=== PATIENT | female | born 1930 | race Caucasian/White ===

== ENCOUNTER 2016-10-25 11:43 | Emergency (ER) | payer MEDICARE ==
[2016-10-25 12:32] VITALS: RESP 16
--- NOTE | 2016-10-25 13:12 | ED ---
Lower Extremity Injury HPI - General Chief Complaint: Extremity Injury, Lower Stated Complaint: GROWTH ON LEFT FOOT Time Seen by Provider: 10/25/16 13:04 Source: patient, family, RN notes reviewed Mode of arrival: ambulatory Limitations: no limitations - History of Present Illness Initial Comments: 86-year-old female presents to the emergency department with a chief complaint of sore to the left foot. Patient states that about a month ago she cut her foot on some glass. Patient states since then she's had just the sore to left foot that is tender to touch. Patient does not know if there is Peter glass in the foot. Patient states she's had no redness or erythema from the area. Patient denies any fever or chills. Patient states she was concerned due to the continued sore so she thought that she should be seen. Patient states she is up-to-date on her tetanus. Patient states that she is not currently having any other symptoms at this time. Patient denies any recent fever, chills, shortness of breath, chest pain, back pain, abdominal pain, nausea vomiting, numbness or tingling, dysuria or hematuria, constipation or diarrhea, headaches or visual changes, or any other current symptoms. - Related Data Home Medications Medication Instructions Recorded Confirmed ALPRAZolam [Xanax] 0.25 mg PO Q8H PRN 06/13/14 04/13/16 Donepezil HCl 10 mg PO HS 06/13/14 04/13/16 amLODIPine BESYLATE [Norvasc] 5 mg PO DAILY 06/13/14 04/13/16 Acetaminophen with Codeine 1 tab PO BID PRN 04/13/16 04/13/16 [Tylenol w/codeine #3] Diclofenac Sodium [Diclofenac 1 applic TOPICAL TID 04/13/16 04/13/16 Sodium] Hydrocodone/Acetaminophen [[place] 1 tab PO Q8H PRN 04/13/16 04/13/16 5-325] Previous Rx's Medication Instructions Recorded Cephalexin [Keflex] 500 mg PO Q6HR #40 cap 10/25/16 Allergies Allergy/AdvReac Type Severity Reaction Status Date / Time coconut oil Allergy Unknown Verified 10/25/16 12:30 Review of Systems ROS Statement: Those systems with pertinent positive or pertinent negative responses have been documented in the HPI. ROS Other: All systems not noted in ROS Statement are negative. Past Medical History Past Medical History: Dementia, Hypertension, Osteoarthritis (OA) Additional Past Medical History / Comment(s): pelvic fracture right side History of Any Multi-Drug Resistant Organisms: None Reported Past Surgical History: Appendectomy, Cholecystectomy, Joint Replacement Additional Past Surgical History / Comment(s): left knee surgery Past Psychological History: Anxiety Smoking Status: Never smoker Past Alcohol Use History: None Reported Past Drug Use History: None Reported General Exam Limitations: no limitations General appearance: alert, in no apparent distress Head exam: Present: atraumatic, normocephalic, normal inspection Eye exam: Present: normal appearance, PERRL, EOMI. Absent: scleral icterus, conjunctival injection, periorbital swelling Respiratory exam: Present: normal lung sounds bilaterally. Absent: respiratory distress, wheezes, rales, rhonchi, stridor Cardiovascular Exam: Present: regular rate, normal rhythm, normal heart sounds. Absent: systolic murmur, diastolic murmur, rubs, gallop, clicks Extremities exam: Present: full ROM, normal capillary refill. Absent: normal inspection (Patient does appear to have a round circular area to the left foot. There is appears to be some fluctuation to touch. No associated erythema.), tenderness, pedal edema, joint swelling, calf tenderness Neurological exam: Present: alert, oriented X3, CN II-XII intact. Absent: motor sensory deficit Psychiatric exam: Present: normal affect, normal mood Skin exam: Present: warm, dry, intact, normal color. Absent: rash Course Vital Signs 10/25/16 12:30 Temperature 98.7 F Pulse Rate 85 Respiratory 16 Rate Blood Pressure 177/80 Procedures - Procedures Initial comment: Procedure: Incision and drainage The skin overlying the abscess was prepped with Betadine, and anesthetized with 1% lidocaine without epinephrine. A #11 scalpel was then used to incise the abscess. Some purulent material was then extracted from the lesion.Gauze dressing placed on top, The patient tolerated the procedure well. Medical Decision Making - Medical Decision Making 86-year-old female presents to emergency room chief complaint of sore to the left foot. Patient's x-ray does show a radiopaque foreign body which appears to be within the abscess. The abscess was drained. The foreign body was removed. X-ray does show removal of the foreign body. At this time we did discuss that we will start her on Keflex. We discussed return parameters and follow-up. Patient's family stated they understood all questions were answered. They will be discharged home. - Radiology Data Radiology results: report reviewed, image reviewed Interpreted by me: Final left foot limited study does show removal of foreign body. Disposition Clinical Impression: Foreign body in left foot, Abscess of left foot Disposition: HOME SELF-CARE Condition: Stable Instructions: Abscess (ED), Soft Tissue Foreign Body (ED) Additional Instructions: Please use medication as discussed. Please follow up with family doctor if symptoms have not improved over the next two days. Please return to the emergency room if your symptoms increase or worsen or for any other concerns. Prescriptions: Cephalexin [Keflex] 500 mg PO Q6HR #40 cap Referrals: Enrike Bronson MD [Primary Care Provider] - 1-2 days Time of Disposition: 14:11
--- NOTE | 2016-10-25 13:31 | XR ---
EXAMINATION TYPE: XR foot complete LT DATE OF EXAM: 10/25/2016 1:25 PM COMPARISON: NONE HISTORY: Pain, foreign body glass TECHNIQUE: 3 view left foot FINDINGS: There is a radiopaque foreign body within the subcutaneous tissues at the heel. This correl ates with the area indicated by the paper clip. Plantar calcaneal heel spur is present. This is ident ified on the lateral projection. There is advanced degenerative joint changes of the first metatarsophalangeal joint space. Acute frac tures are not evident. IMPRESSION: 1. Radiopaque foreign body within the subcutaneous heel pad.
--- NOTE | 2016-10-25 14:02 | XR ---
EXAMINATION TYPE: XR foot limited LT DATE OF EXAM: 10/25/2016 1:47 PM COMPARISON: Three-view left foot same date HISTORY: Foreign body TECHNIQUE: Portable lateral left foot FINDINGS: Radiopaque foreign body remains present within the subcutaneous tissues of the heel pad. Pl javon calcaneal heel spur is present. IMPRESSION: 1. Retained foreign body.
[2016-10-25 14:20] VITALS: BP 138/87; PULSE 98; TEMP 97.9
--- NOTE | 2016-10-25 14:25 | XR ---
EXAMINATION TYPE: XR foot limited LT DATE OF EXAM: 10/25/2016 2:12 PM COMPARISON: NONE HISTORY: Post foreign body removal TECHNIQUE: Lateral left foot FINDINGS: Radiopaque foreign body is now absent. Plantar calcaneal spur remains present. IMPRESSION: 1. Removal of a radiopaque foreign body heel pad.
== END 2016-10-25 14:21 | disposition home or self-care (01) ==
LOC: EC 11:43
DX: M79.5 Residual foreign body in soft tissue (principal); L02.612 Cutaneous abscess of left foot; W25.XXXA Contact with sharp glass, initial encounter; W45.8XXA Other foreign body or object entering through skin, initial encounter; Z79.899 Other long term (current) drug therapy; I10 Essential (primary) hypertension; F03.90 Unspecified dementia, unspecified severity, without behavioral disturbance, psychotic disturbance, mood disturbance, and anxiety; Z91.018 Allergy to other foods; F41.9 Anxiety disorder, unspecified
CPT/HCPCS: 28190; 99283

== ENCOUNTER 2017-04-12 08:13 | Inpatient (IN) | payer MEDICARE ==
[2017-04-12] MEDS ORDERED: SODIUM CHLORIDE 0.9% 500 ML IV STA (08:44)
--- NOTE | 2017-04-12 08:48 | ED ---
General Adult HPI - General Chief complaint: Dizziness Stated complaint: SYNCOPE Time Seen by Provider: 04/12/17 08:20 Source: patient, RN notes reviewed Mode of arrival: wheelchair Limitations: no limitations - History of Present Illness Initial comments: This is an 87-year-old female who presents to the emergency department after having had a syncopal episode. Patient's family states yesterday she was sitting on the porch and passed out and was completely unresponsive for 2-3 minutes. They called EMS but by the time he arrived patient was alert and oriented 3. EMS did some vital signs patient was feeling fine her vitals were normal and it was determined they would just watch the patient stay with the patient overnight. This morning while having a little bit of coffee the patient again passed out was out for 2-3 minutes and then again called 911. Patient awoke and was alert and oriented 3 and was back to her baseline with normal vitals. Patient only complains of feeling fatigued she has no pain she has had no recent fever chills she has had no recent episodes of chest pain palpitations. Patient said no abdominal pain she denies any nausea vomiting or diarrhea recently. Patient denies any dysuria hematuria urinary frequency. - Related Data Home Medications Medication Instructions Recorded Confirmed ALPRAZolam [Xanax] 0.25 mg PO Q8H PRN 06/13/14 04/12/17 Donepezil HCl 10 mg PO HS 06/13/14 04/12/17 amLODIPine BESYLATE [Norvasc] 5 mg PO DAILY 06/13/14 04/12/17 Diclofenac Sodium [Diclofenac 1 applic TOPICAL TID 04/13/16 04/12/17 Sodium] Docusate [Colace] 100 mg PO HS 04/12/17 04/12/17 Ergocalciferol [Vitamin D2] 50,000 unit PO Q7D 04/12/17 04/12/17 Ferrous Sulfate [Iron] 325 mg PO TID 04/12/17 04/12/17 Sertraline HCl [Zoloft] 25 mg PO DAILY 04/12/17 04/12/17 Sulfamethox-Tmp 800-160Mg [Bactrim 0.5 tab PO Q12HR 04/12/17 04/12/17 DS 800-160 mg] Allergies Allergy/AdvReac Type Severity Reaction Status Date / Time coconut oil Allergy Unknown Verified 06/29/17 09:09 Review of Systems ROS Statement: Those systems with pertinent positive or pertinent negative responses have been documented in the HPI. ROS Other: All systems not noted in ROS Statement are negative. Past Medical History Past Medical History: Dementia, Hypertension, Osteoarthritis (OA) Additional Past Medical History / Comment(s): pelvic fracture right side History of Any Multi-Drug Resistant Organisms: None Reported Past Surgical History: Appendectomy, Cholecystectomy, Joint Replacement Additional Past Surgical History / Comment(s): left knee surgery Past Psychological History: Anxiety Smoking Status: Never smoker Past Alcohol Use History: None Reported Past Drug Use History: None Reported General Exam - General Exam Comments Initial Comments: GENERAL: Patient is well-developed and well-nourished. Patient is nontoxic and well- hydrated and is in mild distress. Patient does appear to be very fatigued and if you don't talk to her friend at the time she falls asleep ENT: Neck is soft and supple. No significant lymphadenopathy is noted. Oropharynx is clear. Moist mucous membranes. Neck has full range of motion without eliciting any pain. EYES: The sclera were anicteric and conjunctiva were pink and moist. Extraocular movements were intact and pupils were equal round and reactive to light. Eyelids were unremarkable. PULMONARY: Unlabored respirations. Good breath sounds bilaterally. No audible rales rhonchi or wheezing was noted. CARDIOVASCULAR: There is a regular rate and rhythm without any murmurs gallops or rubs. ABDOMEN: Soft and nontender with normal bowel sounds. No palpable organomegaly was noted. There is a palpable pulsatile mass in the left upper quadrant. SKIN: Skin is clear with no lesions or rashes and otherwise unremarkable. NEUROLOGIC: Patient is alert and oriented x3. Cranial nerves II through XII are grossly intact. Motor and sensory are also intact. Normal speech, volume and content. Symmetrical smile. MUSCULOSKELETAL: Normal extremities with adequate strength and full range of motion. LYMPHATICS: No significant lymphadenopathy is noted PSYCHIATRIC: Normal psychiatric evaluation. Normal interpersonal interactions appears functionally intact in deals appropriately with others. No signs of depression. No signs of anxiety. Limitations: no limitations Course Vital Signs 04/12/17 04/12/17 04/12/17 08:18 08:45 10:15 Temperature 98.2 F Pulse Rate 63 48 L Pulse Rate [ 63 Sitting] Pulse Rate [ 75 Standing] Pulse Rate [ 49 L Supine] Respiratory 18 15 Rate Blood Pressure 127/65 140/64 Blood Pressure 140/69 [Sitting] Blood Pressure 130/65 [Standing] Blood Pressure 120/60 [Supine] O2 Sat by Pulse 98 Oximetry 04/12/17 11:22 Temperature 98.4 F Pulse Rate 65 Pulse Rate [ Sitting] Pulse Rate [ Standing] Pulse Rate [ Supine] Respiratory 16 Rate Blood Pressure 108/56 Blood Pressure [Sitting] Blood Pressure [Standing] Blood Pressure [Supine] O2 Sat by Pulse Oximetry Medical Decision Making - Medical Decision Making EKG shows sinus bradycardia 55 bpm UT interval is 198 QRS is 94 Q-T intervals 414 QTC is 396. Patient's EKG shows no ST segment elevation or depression or T wave abnormalities are noted. Chest x-ray shows no acute abnormality. Patient continues to be extremely fatigued in the emergency department but no more syncopal episodes occurred. I spoke with Dr. Lubin he agreed to admit the patient admitted the patient I wrote admitting orders. - Lab Data Result diagrams: 04/12/17 08:45 04/12/17 08:45 Lab Results 04/12/17 04/12/17 04/12/17 Range/Units 08:45 08:45 08:45 WBC 6.4 (3.8-10.6) k/uL RBC 3.65 L (3.80-5.40) m/uL Hgb 8.8 L (11.4-16.0) gm/dL Hct 29.1 L (34.0-46.0) % MCV 79.7 L (80.0-100.0) fL MCH 24.0 L (25.0-35.0) pg MCHC 30.1 L (31.0-37.0) g/dL RDW 15.3 (11.5-15.5) % Plt Count 351 (150-450) k/uL Neutrophils % 64 % Lymphocytes % 21 % Monocytes % 7 % Eosinophils % 5 % Basophils % 1 % Neutrophils # 4.1 (1.3-7.7) k/uL Lymphocytes # 1.3 (1.0-4.8) k/uL Monocytes # 0.4 (0-1.0) k/uL Eosinophils # 0.3 (0-0.7) k/uL Basophils # 0.1 (0-0.2) k/uL Hypochromasia Marked PT (9.0-12.0) sec INR (<1.1) APTT (22.0-30.0) sec Sodium 140 (137-145) mmol/L Potassium 4.3 (3.5-5.1) mmol/L Chloride 106 (98-107) mmol/L Carbon Dioxide 24 (22-30) mmol/L Anion Gap 10 mmol/L BUN 17 (7-17) mg/dL Creatinine 1.28 H (0.52-1.04) mg/dL Est GFR (MDRD) Af Amer 48 (>60 ml/min/1.73 sqM) Est GFR (MDRD) Non-Af 40 (>60 ml/min/1.73 sqM) Glucose 110 H (74-99) mg/dL Calcium 9.1 (8.4-10.2) mg/dL Magnesium 2.3 (1.6-2.3) mg/dL Total Bilirubin 0.5 (0.2-1.3) mg/dL AST 20 (14-36) U/L ALT 23 (9-52) U/L Alkaline Phosphatase 72 (38-126) U/L Total Creatine Kinase 79 (30-135) U/L CK-MB (CK-2) 0.9 (0.0-2.4) ng/mL CK-MB (CK-2) Rel Index 1.1 Troponin I <0.012 (0.000-0.034) ng/mL Total Protein 6.3 (6.3-8.2) g/dL Albumin 3.7 (3.5-5.0) g/dL TSH 2.260 (0.465-4.680) mIU/L Free T4 1.18 (0.78-2.19) ng/dL Urine Color Urine Appearance (Clear) Urine pH (5.0-8.0) Ur Specific [place] (1.001-1.035) Urine Protein (Negative) Urine Glucose (UA) (Negative) Urine Ketones (Negative) Urine Blood (Negative) Urine Nitrite (Negative) Urine Bilirubin (Negative) Urine Urobilinogen (<2.0) mg/dL Ur Leukocyte Esterase (Negative) Urine WBC (0-5) /hpf Ur Squamous Epith Cells (0-4) /hpf Hyaline Casts (0-2) /lpf Urine Mucus (None) /hpf 06/29/17 06/29/17 Range/Units 08:45 10:30 WBC (3.8-10.6) k/uL RBC (3.80-5.40) m/uL Hgb (11.4-16.0) gm/dL Hct (34.0-46.0) % MCV (80.0-100.0) fL MCH (25.0-35.0) pg MCHC (31.0-37.0) g/dL RDW (11.5-15.5) % Plt Count (150-450) k/uL Neutrophils % % Lymphocytes % % Monocytes % % Eosinophils % % Basophils % % Neutrophils # (1.3-7.7) k/uL Lymphocytes # (1.0-4.8) k/uL Monocytes # (0-1.0) k/uL Eosinophils # (0-0.7) k/uL Basophils # (0-0.2) k/uL Hypochromasia PT 10.8 (9.0-12.0) sec INR 1.1 (<1.1) APTT 20.8 L (22.0-30.0) sec Sodium (137-145) mmol/L Potassium (3.5-5.1) mmol/L Chloride (98-107) mmol/L Carbon Dioxide (22-30) mmol/L Anion Gap mmol/L BUN (7-17) mg/dL Creatinine (0.52-1.04) mg/dL Est GFR (MDRD) Af Amer (>60 ml/min/1.73 sqM) Est GFR (MDRD) Non-Af (>60 ml/min/1.73 sqM) Glucose (74-99) mg/dL Calcium (8.4-10.2) mg/dL Magnesium (1.6-2.3) mg/dL Total Bilirubin (0.2-1.3) mg/dL AST (14-36) U/L ALT (9-52) U/L Alkaline Phosphatase (38-126) U/L Total Creatine Kinase (30-135) U/L CK-MB (CK-2) (0.0-2.4) ng/mL CK-MB (CK-2) Rel Index Troponin I (0.000-0.034) ng/mL Total Protein (6.3-8.2) g/dL Albumin (3.5-5.0) g/dL TSH (0.465-4.680) mIU/L Free T4 (0.78-2.19) ng/dL Urine Color Yellow Urine Appearance Clear (Clear) Urine pH 6.5 (5.0-8.0) Ur Specific [place] 1.018 (1.001-1.035) Urine Protein 1+ H (Negative) Urine Glucose (UA) Negative (Negative) Urine Ketones Negative (Negative) Urine Blood Negative (Negative) Urine Nitrite Negative (Negative) Urine Bilirubin Negative (Negative) Urine Urobilinogen <2.0 (<2.0) mg/dL Ur Leukocyte Esterase Trace H (Negative) Urine WBC 2 (0-5) /hpf Ur Squamous Epith Cells 2 (0-4) /hpf Hyaline Casts 13 H (0-2) /lpf Urine Mucus Occasional H (None) /hpf Disposition Clinical Impression: Syncope, Anemia, Bradycardia Disposition: ADMITTED IP TO THIS HOSP Referrals: Jamel Wolfe MD [Primary Care Provider] - 1-2 days Time of Disposition: 11:38
[2017-04-12 09:08] LABS: Basophils # (A) 0.1 k/uL (0-0.2); Basophils % (A) 1 %; CHCM 30.3; Eosinophils # (A) 0.3 k/uL (0-0.7); Eosinophils % (A) 5 %; HCT 29.1 % (34.0-46.0); HDW 3.04; HGB 8.8 gm/dL (11.4-16.0); Hypochromasia Marked; Luc # (Auto) 0.15; Luc % (Auto) 2; Lymphocytes # (A) 1.3 k/uL (1.0-4.8); Lymphocytes % (A) 21 %; MCHC 30.1 g/dL (31.0-37.0); MCV 79.7 fL (80.0-100.0); Mean Platelet Volume 7.5; Monocytes # (A) 0.4 k/uL (0-1.0); Monocytes % (A) 7 %; Neutrophils # (A) 4.1 k/uL (1.3-7.7); Neutrophils % (A) 64 %; RBC 3.65 m/uL (3.80-5.40); RDW 15.3 % (11.5-15.5); WBC 6.4 k/uL (3.8-10.6); WBC (Perox) 6.48
[2017-04-12 09:22] LABS: Calcium 9.1 mg/dL (8.4-10.2); Magnesium 2.3 mg/dL (1.6-2.3); Potassium 4.3 mmol/L (3.5-5.1); Total Bilirubin 0.5 mg/dL (0.2-1.3); Total Protein 6.3 g/dL (6.3-8.2)
[2017-04-12 09:35] LABS: INR 1.1 (<1.1); Partial Thromboplastin Time 20.8 sec (22.0-30.0); Prothrombin Time 10.8 sec (9.0-12.0)
[2017-04-12 09:37] LABS: Creatine Kinase 79 U/L (30-135)
[2017-04-12 09:50] LABS: Creatine Kinase MB 0.9 ng/mL (0.0-2.4); Troponin I <0.012 ng/mL (0.000-0.034)
--- NOTE | 2017-04-12 10:00 | XR ---
EXAMINATION TYPE: XR chest 2V DATE OF EXAM: 04/12/2017 COMPARISON: 12/03/2014 HISTORY: 87-year-old female with weakness TECHNIQUE: AP and lateral views FINDINGS: There is excessive rightward patient rotation altering the normal cardiomediastinal contours. AP posi tioning may be magnifying the mediastinum and heart. Mild diffuse interstitial prominence is unchange d. No consolidation, pneumothorax, or pleural effusion seen. IMPRESSION: 1. Suboptimal rotated exam. The rotation and AP projection may be overly magnifying the mediastinum a nd heart. Recommend repeat with PA view. 2. Mild interstitial prominence appears chronic. No infiltrate or effusion seen.
--- NOTE | 2017-04-12 11:01 | CT ---
EXAMINATION TYPE: CT abdomen pelvis wo con DATE OF EXAM: 04/12/2017 COMPARISON: NONE HISTORY: 87-year-old female Nausea and syncope CT DLP: 725 mGycm. Automated exposure control for dose reduction was used. TECHNIQUE: Contiguous axial scanning of the abdomen and pelvis without IV contrast. Coronal and sagit angela reconstructions performed. FINDINGS: The heart is upper limits of normal in size without pericardial effusion. Coronary vessel calcificati ons are present entering marker for coronary artery disease. Tortuous thoracic aorta. Strandy atelect asis or scarring at the inferior lingula and posterior left base. No pleural effusion. A few scattered punctate calcifications in the liver likely calcified granulomas. Additional subcenti meter hypodensities within the left hepatic lobe. These are too small for adequate CT characterizatio n probably represent cysts. Noncontrast appearance of the gallbladder, adrenal gland, right kidney, spleen within normal limits. There is a vague 1.3 cm hypodense lesion at the pancreatic body and relative atrophy of the pancreati c tail. Mild circumferential wall thickening at the gastric antrum probably due to underdistention on axial i mage 22. Parapelvic cysts within the left kidney with a 4.2 cm cyst in the upper pole left kidney. Moderate atherosclerotic calcifications within the abdominal aorta and iliac arteries with 2 contiguo us fusiform aneurysms of the infrarenal abdominal aorta, measuring 3.1 cm and 3.2 cm, respectively. 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 No dilated small bowel, free fluid, or free air. Scattered colonic diverticulosis with mild stool burden. No pericolonic inflammatory change No mesenteric or retroperitoneal lymphadenopathy seen. There is moderate circumferential bladder wall thickening, greater than expected to the degree of nondistention. Uterus surgically absent. Prominen t 8 mm left external iliac chain lymph node is probably reactive/post inflammatory. There is a 1.4 cm cystic lesion in the right adnexa likely of ovarian etiology. 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 There is vertebral compression collapse of T12 with retropulsion i nto the spinal canal contributing to the severe spinal canal stenosis. Old healed fracture of the rig ht inferior pubic ramus. IMPRESSION: 1. Vague 1.3 cm hypodensity along the pancreatic body with relative atrophy of the pancreatic tail. Recommend pancreas MRI to exclude a pancreatic lesion such as adenocarcinoma. 2. Circumferential wall thickening at the gastric antrum could relate to underdistention, gastritis, or neoplasm. Direct visualization as indicated. 3. Bilobed fusiform aneurysms infrarenal abdominal aorta measuring 3.1 and 3.2 cm. Additional aneury sms of the right common (1.9 cm) and internal iliac (1.7 cm) arteries and left internal iliac artery (1.4 cm). 4. Moderate circumferential bladder wall thickening. Correlate for cystitis. Also, recommend correla tion with urine cytology to exclude the possibility of a urothelial neoplasm. 5. T12 vertebral compression collapsed with retropulsion causing severe spinal canal stenosis. The c ompression fracture appears chronic. Severe hypertrophic facet arthropathy causes a grade 2 L4-L5 ant erolisthesis 6. Colonic diverticulosis without acute diverticulitis.
[2017-04-12 11:04] LABS: Appearance,Urine Clear (Clear); Bilirubin,Urine Negative (Negative); Glucose,Urine (UA) Negative (Negative); Ketones,Urine Negative (Negative); Leukocyte Esterase,Urine Trace (Negative); Mucus,Urine Occasional /hpf; Nitrite,Urine Negative (Negative); PH, Urine 6.5 (5.0-8.0); Particle Count 4439; Protein,Urine 1+ (Negative); Specific Gravity,Urine 1.018 (1.001-1.035); Squamous Epithelial Cell,Urine 2 /hpf (0-4); UA Billing (MACRO vs. MICRO) MICRO; Urobilinogen,Urine <2.0 mg/dL (<2.0); WBC,Urine 2 /hpf (0-5)
[2017-04-12] MEDS ORDERED: NITROGLYCERIN SL TABS 0.4 MG TAB SUBLINGUAL PRN (11:39)
--- NOTE | 2017-04-12 15:34 | P.CRDCN ---
History of Present Illness Consult date: 04/12/17 Requesting physician: Jason Lubin Consult reason: sycope Chief complaint: Syncope History of present illness: This is an 87-year-old female who presented to the emergency room after having a syncopal episode. According to the ER notes the family stated that she was sitting on the porch and passed out, she apparently was unresponsive for 2-3 minutes. By EMS arrival patient was alert and oriented 3. This morning again while the patient was having coffee she apparently passed out for another 2 or 3 minutes in duration. Unable to obtain history from the patient as she has dementia. EKG showed a sinus bradycardia with left axis deviation. The pressure on arrival 127/60 there was no orthostatics documented, at times it's noted that the patient's heart rate does dip down into the 40s. Hemoglobin 8.8, potassium 4.3, BUN 17, creatinine 1.2. TSH 2.2, free T4 1 0.1. Chest x-ray revealed mild interstitial prominence. Past Medical History Past Medical History: CVA/TIA, Dementia, Eye Disorder, Hypertension, Osteoarthritis (OA), Vascular Disorder Additional Past Medical History / Comment(s): pelvic fracture right side, arthritis bilateral hands and feet, AAA-small, glaucoma R eye, TIA in 2009, diverticular dx/benign polyps History of Any Multi-Drug Resistant Organisms: None Reported Past Surgical History: Appendectomy, Cholecystectomy, Joint Replacement, Tonsillectomy Additional Past Surgical History / Comment(s): left total knee surgery, colonoscopy/polypectomy, bilateral cataract removal, surgery for glaucoma. Past Anesthesia/Blood Transfusion Reactions: No Reported Reaction, Motion Sickness Smoking Status: Never smoker - Past Family History Father Family Medical History: CVA/TIA Additional Family Medical History / Comment(s): Father of a CVA at the age of 65yrs. Mother Family Medical History: Dementia, Eye Disorder Additional Family Medical History / Comment(s): Mother at the age of 96yrs. She was healthy until age 90 when she went blind and had dementia. Medications and Allergies Home Medications Medication Instructions Recorded Confirmed Type ALPRAZolam [Xanax] 0.25 mg PO Q8H PRN 06/13/14 04/12/17 History Donepezil HCl 10 mg PO HS 06/13/14 04/12/17 History amLODIPine BESYLATE [Norvasc] 5 mg PO DAILY 06/13/14 04/12/17 History Diclofenac Sodium [Diclofenac 1 applic TOPICAL TID 04/13/16 04/12/17 History Sodium] Docusate [Colace] 100 mg PO HS 04/12/17 04/12/17 History Ergocalciferol [Vitamin D2] 50,000 unit PO Q7D 04/12/17 04/12/17 History Ferrous Sulfate [Iron] 325 mg PO TID 04/12/17 04/12/17 History Sertraline HCl [Zoloft] 25 mg PO DAILY 04/12/17 04/12/17 History Sulfamethox-Tmp 800-160Mg [Bactrim 0.5 tab PO Q12HR 04/12/17 04/12/17 History DS 800-160 mg] Allergies Allergy/AdvReac Type Severity Reaction Status Date / Time coconut oil Allergy Unknown Verified 04/12/17 09:09 Physical Exam Vitals: Vital Signs Temp Pulse Pulse Pulse Pulse Resp BP 04/12/17 12:24 98.8 F 67 84 46 L 16 04/12/17 11:22 98.4 F 65 16 108/56 04/12/17 10:15 48 L 15 140/64 04/12/17 08:45 63 75 49 L 04/12/17 08:18 98.2 F 63 18 127/65 BP BP BP Pulse Ox 04/12/17 12:24 128/72 111/62 118/53 04/12/17 11:22 04/12/17 10:15 04/12/17 08:45 140/69 130/65 120/60 04/12/17 08:18 98 Intake and Output 04/12/17 04/12/17 04/12/17 06:59 14:59 22:59 Other: Weight 65.771 kg Patient Weight 04/13/17 06:59 Weight 65.771 kg PHYSICAL EXAMINATION: HEENT: Head is atraumatic, normocephalic. Pupils equal, round. Neck is supple. There is no elevated jugular venous pressure. HEART EXAMINATION: Heart S1, S2 normal. No murmur or gallop heard. CHEST EXAMINATION: Lungs are clear to auscultation and precussion. No chest wall tenderness is noted on palpation or with deep breathing. ABDOMEN: Soft, nontender. Bowel sounds are heard. No organomegaly noted. EXTREMITIES:[ 2+ peripheral pulses with no evidence of peripheral edema and no calf tenderness noted]. NEUROLOGIC [patient is awake, . Results 04/12/17 08:45 04/12/17 08:45 Cardiac Enzymes 04/12/17 04/12/17 Range/Units 08:45 08:45 AST 20 (14-36) U/L CK-MB (CK-2) 0.9 (0.0-2.4) ng/mL Troponin I <0.012 (0.000-0.034) ng/mL Coagulation 04/12/17 Range/Units 08:45 PT 10.8 (9.0-12.0) sec APTT 20.8 L (22.0-30.0) sec CBC 04/12/17 Range/Units 08:45 WBC 6.4 (3.8-10.6) k/uL RBC 3.65 L (3.80-5.40) m/uL Hgb 8.8 L (11.4-16.0) gm/dL Hct 29.1 L (34.0-46.0) % Plt Count 351 (150-450) k/uL Comprehensive Metabolic Panel 04/12/17 Range/Units 08:45 Sodium 140 (137-145) mmol/L Potassium 4.3 (3.5-5.1) mmol/L Chloride 106 (98-107) mmol/L Carbon Dioxide 24 (22-30) mmol/L BUN 17 (7-17) mg/dL Creatinine 1.28 H (0.52-1.04) mg/dL Glucose 110 H (74-99) mg/dL Calcium 9.1 (8.4-10.2) mg/dL AST 20 (14-36) U/L ALT 23 (9-52) U/L Alkaline Phosphatase 72 (38-126) U/L Total Protein 6.3 (6.3-8.2) g/dL Albumin 3.7 (3.5-5.0) g/dL Current Medications Generic Name Dose Route Start Last Admin Trade Name Freq PRN Reason Stop Dose Admin Aspirin 325 mg 04/13/17 09:00 Aspirin PO DAILY JANNETTE Nitroglycerin 0.4 mg 04/12/17 11:39 Nitrostat SUBLINGUAL Q5M PRN Chest Pain Intake and Output 04/12/17 04/12/17 04/12/17 06:59 14:59 22:59 Other: Weight 65.771 kg Patient Weight 04/13/17 06:59 Weight 65.771 kg 04/12/17 08:45 04/12/17 08:45 EKG Interpretations (text) EKG shows a sinus bradycardia with left axis deviation Assessment and Plan Plan: Assessment and plan #1 syncope, rule out sick sinus syndrome. We will continue to monitor here. No orthostatics have been documented. Consider 30 day event monitor on discharge. #2 dementia #3 hypertension #4 prior TIA Plan We will obtain an echocardiogram with Doppler study. Continue to monitor for any significant bradycardia arrhythmias or sick sinus syndrome. If nothing is noted while here hospital, we would recommend a 30 day event monitor on discharge. DNP note has been reviewed, I agree with a documented findings and plan of care. Patient was seen and examined.
[2017-04-12] MEDS ORDERED: ONDANSETRON 4 MG/2 ML VIAL IVP PRN (15:47)
[2017-04-12 16:21] LABS: Creatine Kinase 74 U/L (30-135)
[2017-04-12 16:30] LABS: Creatine Kinase MB 0.8 ng/mL (0.0-2.4); Troponin I <0.012 ng/mL (0.000-0.034)
[2017-04-12] MEDS ORDERED: ERGOCALCIFEROL 50,000 UNIT CAP PO SCH (20:00)
[2017-04-12] MEDS: FERROUS SULFATE 325 MG TAB PO SCH (20:07)
[2017-04-12] MEDS: DOCUSATE 100 MG CAP PO SCH (20:08)
[2017-04-12 21:10] LABS: Creatine Kinase 86 U/L (30-135)
[2017-04-12 21:24] LABS: Creatine Kinase MB 0.9 ng/mL (0.0-2.4); Troponin I <0.012 ng/mL (0.000-0.034)
[2017-04-12] MEDS: ALPRAZolam 0.25 MG TAB PO PRN (22:15)
[2017-04-13 06:38] LABS: Basophils % (A) 1 %; CH 23.5; CHCM 29.3; Eosinophils # (A) 0.4 k/uL (0-0.7); Eosinophils % (A) 6 %; HDW 2.93; HGB 8.2 gm/dL (11.4-16.0); Hypochromasia Marked; Luc # (Auto) 0.18; Luc % (Auto) 3; Lymphocytes # (A) 1.5 k/uL (1.0-4.8); Lymphocytes % (A) 22 %; MCH 24.4 pg (25.0-35.0); MCHC 30.3 g/dL (31.0-37.0); MCV 80.6 fL (80.0-100.0); Mean Platelet Volume 7.5; Monocytes # (A) 0.5 k/uL (0-1.0); Monocytes % (A) 7 %; Neutrophils # (A) 4.2 k/uL (1.3-7.7); Neutrophils % (A) 62 %; RBC 3.35 m/uL (3.80-5.40); RDW 15.3 % (11.5-15.5); WBC 6.8 k/uL (3.8-10.6)
[2017-04-13 06:59] LABS: Calcium 8.8 mg/dL (8.4-10.2); Potassium 4.6 mmol/L (3.5-5.1)
[2017-04-13] MEDS: FAMOTIDINE 20 MG TAB PO SCH ×2 (07:49→19:38)
[2017-04-13] MEDS: SERTRALINE 25 MG TAB PO SCH (07:49)
[2017-04-13] MEDS: HEPARIN SODIUM,PORCINE 5,000 UNIT/ML 1 ML VIAL SQ SCH ×2 (07:49→19:38)
[2017-04-13] MEDS: ASPIRIN 325 MG TAB PO SCH (07:49)
[2017-04-13] MEDS: FERROUS SULFATE 325 MG TAB PO SCH ×3 (07:50→19:38)
--- NOTE | 2017-04-13 11:07 | ECHOF ---
Referral Reason:syncope MEASUREMENTS -------- HEIGHT: 162.6 cm WEIGHT: 65.3 kg BP: 124/69 IVSd: 1.3 cm (0.6 - 1.1) LVIDd: 4.0 cm (3.9 - 5.3) LVPWd: 1.3 cm (0.6 - 1.1) IVSs: 1.5 cm LVIDs: 3.4 cm LVPWs: 1.1 cm LA Diam: 3.4 cm (2.7 - 3.8) LAESV Index (A-L): 41.27 ml/m Ao Diam: 3.2 cm (2.0 - 3.7) AV Cusp: 1.5 cm (1.5 - 2.6) LA Diam: 4.4 cm (2.7 - 3.8) MV EXCURSION: 19.436 mm (> 18.000) MV EF SLOPE: 56 mm/s (70 - 150) EPSS: 1.0 cm MV E Micheal: 0.49 m/s MV DecT: 298 ms MV A Micheal: 0.83 m/s MV E/A Ratio: 0.59 AR PHT: 788 ms RAP: 5.00 mmHg RVSP: 23.58 mmHg FINDINGS -------- Sinus rhythm. This was a technically adequate study. There is mild concentric left ventricular hypertrophy. Overall left ventricular systolic function is low-normal with, an EF between 50 - 55 %. The right ventricle is normal in size. LA is severely dilated >40 ml/m2 The right atrial size is normal. There is mild aortic valve sclerosis. There is mild aortic regurgitation. Mild mitral annular calcification present. Mild mitral regurgitation is present. Mild tricuspid regurgitation present. There is no evidence of pulmonary hypertension. The right ventricular systolic pressure, as measured by Doppler, is 23.58mmHg. Trace/mild (physiologic) pulmonic regurgitation. The aortic root size is normal. There is no pericardial effusion. CONCLUSIONS -------- 1. There is mild concentric left ventricular hypertrophy. 2. The right ventricular systolic pressure, as measured by Doppler, is 23.58mmHg. 3. Trace/mild (physiologic) pulmonic regurgitation. 4. The aortic root size is normal. 5. There is no pericardial effusion. 6. Overall left ventricular systolic function is low-normal with, an EF between 50 - 55 %. 7. LA is severely dilated >40 ml/m2 8. There is mild aortic valve sclerosis. 9. There is mild aortic regurgitation. 10. Mild mitral annular calcification present. 11. Mild mitral regurgitation is present. 12. Mild tricuspid regurgitation present. 13. There is no evidence of pulmonary hypertension. ORACLE SOA ARCHITECT: Deysi Farrell RDCS
[2017-04-13 11:48] VITALS: BMI 24.7
[2017-04-13] MEDS: ALPRAZolam 0.25 MG TAB PO PRN ×2 (15:16→23:36)
--- NOTE | 2017-04-13 16:59 | P.PN ---
Subjective This is an 7-year-old female who presented to the emergency department after having a syncopal episode. He apparently was unresponsive for 2-3 minutes. The time EMS arrived patient was alert and oriented 3. Patient has a known history of dementia, hypertension and prior TIA. Upon examination today, patient is sitting up in a chair. She has had no episodes of bradycardia or pauses on the monitor. She underwent echocardiogram with Doppler that showed an ejection fraction of 50-55% with mild aortic sclerosis and mild AR, mild MR and mild TR. Objective - Vital Signs Vital signs: Vital Signs Temp 98.1 F 04/13/17 12:00 Pulse 52 L 04/13/17 12:00 Resp 18 04/13/17 12:00 BP 116/57 04/13/17 12:00 Pulse Ox 98 04/13/17 08:00 Intake & Output 04/12/17 04/13/17 04/13/17 18:59 06:59 18:59 Intake Total 240 20 525 Output Total 300 Balance 240 20 225 Weight 65.771 kg 65.5 kg 65.5 kg Intake: IV 20 0.9 20 Oral 240 525 Output: Urine 300 Other: Voiding Method Toilet Toilet # Voids 1 1 2 - Exam PHYSICAL EXAMINATION: HEENT: Head is atraumatic, normocephalic. Pupils equal, round. Neck is supple. There is no elevated jugular venous pressure. HEART EXAMINATION: Heart sounds regular, S1 and S2 normal with a systolic murmur. CHEST EXAMINATION: Lungs are clear to auscultation and precussion. No chest wall tenderness is noted on palpation or with deep breathing. ABDOMEN: Soft, nontender. Bowel sounds are heard. No organomegaly noted. EXTREMITIES: 2+ peripheral pulses with no evidence of peripheral edema and no calf tenderness noted. NEUROLOGIC patient is awake, alert and oriented x2. . - Labs CBC & Chem 7: 04/13/17 05:34 04/13/17 05:34 Labs: Abnormal Lab Results - Last 24 Hours (Table) 04/13/17 04/13/17 Range/Units 05:34 05:34 RBC 3.35 L (3.80-5.40) m/uL Hgb 8.2 L (11.4-16.0) gm/dL Hct 27.0 L (34.0-46.0) % MCH 24.4 L (25.0-35.0) pg MCHC 30.3 L (31.0-37.0) g/dL Chloride 109 H (98-107) mmol/L BUN 25 H (7-17) mg/dL Creatinine 1.26 H (0.52-1.04) mg/dL HDL Cholesterol 72 H (40-60) mg/dL Assessment and Plan Plan: Assessment and plan #1 syncope, rule out sick sinus syndrome, patient has had no bradycardia or pauses. #2 dementia #3 hypertension #4 prior TIA From cardiology perspective, we anticipate the patient will be discharged home in the next 24 hours. We have arranged for a 30 day event monitor to be mailed to her son's house where she will be going upon discharge. She'll follow-up with Dr. VC Pastor in the office. INSURANCE AGENTS SUPERVISOR note has been reviewed, I agree with a documented findings and plan of care. Patient was seen and examined.
[2017-04-13] MEDS: DOCUSATE 100 MG CAP PO SCH (19:38)
[2017-04-14 06:40] LABS: Basophils # (A) 0.1 k/uL (0-0.2); Basophils % (A) 1 %; CH 23.6; CHCM 29.5; Eosinophils # (A) 0.5 k/uL (0-0.7); Eosinophils % (A) 8 %; HCT 25.8 % (34.0-46.0); HDW 2.97; HGB 7.7 gm/dL (11.4-16.0); Hypochromasia Marked; Luc # (Auto) 0.24; Luc % (Auto) 4; Lymphocytes # (A) 1.5 k/uL (1.0-4.8); Lymphocytes % (A) 26 %; MCH 24.1 pg (25.0-35.0); MCV 80.3 fL (80.0-100.0); Mean Platelet Volume 6.5; Monocytes # (A) 0.4 k/uL (0-1.0); Monocytes % (A) 7 %; Neutrophils # (A) 3.1 k/uL (1.3-7.7); Neutrophils % (A) 54 %; RBC 3.22 m/uL (3.80-5.40); RDW 15.5 % (11.5-15.5); WBC 5.7 k/uL (3.8-10.6); WBC (Perox) 6.26
[2017-04-14 06:52] LABS: Calcium 8.9 mg/dL (8.4-10.2); Potassium 4.4 mmol/L (3.5-5.1)
[2017-04-14] MEDS: FERROUS SULFATE 325 MG TAB PO SCH (08:23)
[2017-04-14] MEDS: FAMOTIDINE 20 MG TAB PO SCH (08:23)
[2017-04-14] MEDS: HEPARIN SODIUM,PORCINE 5,000 UNIT/ML 1 ML VIAL SQ SCH (08:23)
[2017-04-14] MEDS: SERTRALINE 25 MG TAB PO SCH (08:23)
[2017-04-14] MEDS: ASPIRIN 325 MG TAB PO SCH (08:23)
[2017-04-14 08:33] VITALS: RESP 18
[2017-04-14 12:09] VITALS: BP 110/58; PULSE 68; TEMP 97.8
--- NOTE | 2017-04-14 12:50 | P.PN ---
Subjective Ms. Amezquita is an 87-year-old female with the PMH of CVA/TIA, Dementia, Eye Disorder, Hypertension, Osteoarthritis (OA) who presented to the emergency room after having a syncopal episode. According to the ER notes the family stated that she was sitting on the porch and passed out, she apparently was unresponsive for 2-3 minutes. By EMS arrival patient was alert and oriented 3. This morning again while the patient was having coffee she apparently passed out for another 2 or 3 minutes in duration. Unable to obtain history from the patient as she has dementia. EKG showed a sinus bradycardia with left axis deviation. The pressure on arrival 127/60 there was no orthostatics documented, at times it's noted that the patient's heart rate does dip down into the 40s. Hemoglobin 8.8, potassium 4.3, BUN 17, creatinine 1.2. TSH 2.2, free T4 1 0.1. Chest x-ray revealed mild interstitial prominence. On 04/13/17 - pt is sitting on her bed and states that she did not have any syncopal episodes. She denies having any chest pain, SOB, palpitations, Orthopnea or PND. ROS - CONSTITUTIONAL: No fever. No chills. RESPIRATORY: Patient denies any cough or sputum production or short of breath. CARDIOVASCULAR: No chest pain, palpitations or leg swelling. GENITOURINARY: Negative. GI - negative. Objective - Vital Signs Vital signs: Vital Signs Temp 98.3 F 04/13/17 16:00 Pulse 52 L 04/13/17 16:00 Resp 18 04/13/17 16:00 BP 122/66 04/13/17 16:00 Pulse Ox 95 04/13/17 16:00 Intake & Output 04/13/17 04/13/17 04/14/17 06:59 18:59 06:59 Intake Total 20 525 Output Total 300 Balance 20 225 Weight 65.5 kg 65.5 kg Intake: IV 20 0.9 20 Oral 525 Output: Urine 300 Other: Voiding Method Toilet Toilet # Voids 1 2 - Exam HEENT: Head is atraumatic, normocephalic. Pupils equal, round. Neck is supple. There is no elevated jugular venous pressure. HEART EXAMINATION: Heart sounds regular, S1 and S2 normal with a systolic murmur. CHEST EXAMINATION: Lungs are clear to auscultation and precussion. No chest wall tenderness is noted on palpation or with deep breathing. ABDOMEN: Soft, nontender. Bowel sounds are heard. No organomegaly noted. EXTREMITIES: 2+ peripheral pulses with no evidence of peripheral edema and no calf tenderness noted. NEUROLOGIC patient is awake, alert and oriented x2. - Constitutional General appearance: Present: obese - EENT Eyes: Present: PERRLA - Labs CBC & Chem 7: 04/13/17 05:34 04/13/17 05:34 Labs: Abnormal Lab Results - Last 24 Hours (Table) 04/13/17 04/13/17 Range/Units 05:34 05:34 RBC 3.35 L (3.80-5.40) m/uL Hgb 8.2 L (11.4-16.0) gm/dL Hct 27.0 L (34.0-46.0) % MCH 24.4 L (25.0-35.0) pg MCHC 30.3 L (31.0-37.0) g/dL Chloride 109 H (98-107) mmol/L BUN 25 H (7-17) mg/dL Creatinine 1.26 H (0.52-1.04) mg/dL HDL Cholesterol 72 H (40-60) mg/dL Assessment and Plan Plan: ASSESSMENT 1 Syncope - due to bradycardia or pauses - can due to Aricept (known to cause Bradycardia) 2. Dementia 3. 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 CKD - Stage 3 - can be due to HTN nephrosclerosis 5. Hypertension 6. Prior TIA PLAN - Aricept has been discontinued. Pt's HR is in 60 now. Cardiology on board and rec to have an event monitor,Anticipate d/c in the next 24 hrs if uneventful.
--- NOTE | 2017-04-14 12:58 | US ---
EXAMINATION TYPE: US carotid duplex BILAT DATE OF EXAM: 04/14/2017 COMPARISON: NONE CLINICAL HISTORY: jacques; syncope. EXAM MEASUREMENTS: RIGHT: Peak Systolic Velocity (PSV) cm/sec ----- Right CCA: 76.7 ----- Right ICA: 77.6 ----- Right ECA: 67.1 ICA/CCA ratio: 1.0 RIGHT: End Diastole cm/sec ----- Right CCA: 17.4 ----- Right ICA: 20.9 ----- Right ECA: 0.0 LEFT: Peak Systolic Velocity (PSV) cm/sec ----- Left CCA: 75.7 ----- Left ICA: 69.7 ----- Left ECA: 65.8 ICA/CCA ratio: 0.9 LEFT: End Diastole cm/sec ----- Left CCA: 8.7 ----- Left ICA: 15.3 ----- Left ECA: 0.0 VERTEBRALS (direction of flow): Right Vertebral: Antegrade Left Vertebral: Antegrade No significant stenosis seen, mild bilateral plaque noted. Scattered small plaques are evident. There is some intimal thickening within the common carotid arter y on the left. IMPRESSION: Mild atheromatous plaquing and intimal thickening without significant flow-limiting sten osis. Criteria for Assigning % of Stenosis / Diameter reduction (Estimation based on the indirect measurements of the internal carotid artery velocities (ICA PSV). 1. Normal (no stenosis)=ICA PSV < 125 cm/s: ratio < 2.0: ICA EDV<40 cm/s. 2. Less than 50% stenosis=ICA PSV < 125 cm/s: ratio < 2.0: ICA EDV<40 cm/s. 3. 50 to 69% stenosis=ICA PSV of 125 to 230 cm/s: ration 2.0 ? 4.0: ICA EDV 40-100 cm/s. 4. Greater than 70% stenosis to near occlusion= ICA PSV > 230 cm/s: ratio > 4.0: ICA EDV > 100 cm/s. 5. Near occlusion= ICA PSV velocities may be low or undetectable: variable ratio and ICA EDV. 6. Total occlusion=unable to detect flow.
--- NOTE | 2017-04-14 14:29 | P.PN ---
Subjective This is an 7-year-old female who presented to the emergency department after having a syncopal episode. He apparently was unresponsive for 2-3 minutes. The time EMS arrived patient was alert and oriented 3. Patient has a known history of dementia, hypertension and prior TIA. Upon examination today, patient is sitting up in a chair. She has had no episodes of bradycardia or pauses on the monitor. She underwent echocardiogram with Doppler that showed an ejection fraction of 50-55% with mild aortic sclerosis and mild AR, mild MR and mild TR. She is been ordered to undergo carotid duplex prior to discharge. Objective - Vital Signs Vital signs: Vital Signs Temp 97.8 F 04/14/17 12:08 Pulse 68 04/14/17 12:08 Resp 18 04/14/17 12:08 BP 110/58 04/14/17 12:08 Pulse Ox 95 04/14/17 12:08 Intake & Output 04/13/17 04/14/17 04/14/17 18:59 06:59 18:59 Intake Total 525 20 Output Total 300 Balance 225 20 Weight 65.5 kg 65.9 kg Intake: IV 20 0.9 20 Oral 525 Output: Urine 300 Other: Voiding Method Toilet Toilet Toilet # Voids 2 - Exam PHYSICAL EXAMINATION: HEENT: Head is atraumatic, normocephalic. Pupils equal, round. Neck is supple. There is no elevated jugular venous pressure. HEART EXAMINATION: Heart sounds regular, S1 and S2 normal with a systolic murmur. CHEST EXAMINATION: Lungs are clear to auscultation and precussion. No chest wall tenderness is noted on palpation or with deep breathing. ABDOMEN: Soft, nontender. Bowel sounds are heard. No organomegaly noted. EXTREMITIES: 2+ peripheral pulses with no evidence of peripheral edema and no calf tenderness noted. NEUROLOGIC patient is awake, alert and oriented x3. . - Labs CBC & Chem 7: 04/14/17 06:10 04/14/17 06:10 Labs: Abnormal Lab Results - Last 24 Hours (Table) 04/14/17 04/14/17 Range/Units 06:10 06:10 RBC 3.22 L (3.80-5.40) m/uL Hgb 7.7 L (11.4-16.0) gm/dL Hct 25.8 L (34.0-46.0) % MCH 24.1 L (25.0-35.0) pg MCHC 30.0 L (31.0-37.0) g/dL BUN 25 H (7-17) mg/dL Creatinine 1.13 H (0.52-1.04) mg/dL Assessment and Plan Plan: Assessment and plan #1 syncope, rule out sick sinus syndrome, patient has had no bradycardia or pauses. #2 dementia #3 hypertension #4 prior TIA From cardiology perspective, patient is stable for discharge home today. We have arranged for a 30 day event monitor to be mailed to her son's house where she will be going upon discharge. She'll follow-up with Dr. VC Pastor in the office. VOCATIONAL NURSING INSTRUCTOR note has been reviewed, I agree with a documented findings and plan of care. Patient was seen and examined.
--- NOTE | 2017-04-14 21:46 | P.DS ---
Providers Date of admission: 04/12/17 11:41 Expected date of discharge: 04/14/17 Attending physician: Jason Lubin Consults: 04/12/17 11:39 Consult Physician Urgent Consulting Provider: [facility] Consult Reason/Comments: Bradycardia, syncope Do you want consulting provider notified?: Yes Primary care physician: [facility] Course: Ms. Amezquita is an 87-year-old female with the PMH of CVA/TIA, Dementia, Eye Disorder, Hypertension, Osteoarthritis (OA) who presented to the emergency room after having a syncopal episode. According to the ER notes the family stated that she was sitting on the porch and passed out, she apparently was unresponsive for 2-3 minutes. By EMS arrival patient was alert and oriented 3. This morning again while the patient was having coffee she apparently passed out for another 2 or 3 minutes in duration. Unable to obtain history from the patient as she has dementia. EKG showed a sinus bradycardia with left axis deviation. The pressure on arrival 127/60 there was no orthostatics documented, at times it's noted that the patient's heart rate does dip down into the 40s. Hemoglobin 8.8, potassium 4.3, BUN 17, creatinine 1.2. TSH 2.2, free T4 1 0.1. Chest x-ray revealed mild interstitial prominence. On 04/13/17 - pt is sitting on her bed and states that she did not have any syncopal episodes. She denies having any chest pain, SOB, palpitations, Orthopnea or PND. On 04/14/17 - No more syncopal episodes. The patient was supposed to have a carotid artery Doppler that was not ordered so carotid artery Doppler was ordered. She is going to get it done today. She was cleared by cardiology to be discharged home. As per their recommendations event monitor placed as outpatient. The treatment care plan was discussed in detail with her son was at the bedside and also with the patient More than 35 minutes spent with the discharge of the patient. Plan - Discharge Summary New Discharge Prescriptions: Continue ALPRAZolam [Xanax] 0.25 mg PO Q8H PRN PRN Reason: Anxiety Diclofenac Sodium 1 applic TOPICAL TID Ferrous Sulfate [Iron] 325 mg PO TID Sertraline HCl [Zoloft] 25 mg PO DAILY Ergocalciferol [Vitamin D2 (DRISDOL)] 50,000 unit PO Q7D Docusate [Colace] 100 mg PO HS Discontinued amLODIPine BESYLATE [Norvasc] 5 mg PO DAILY Donepezil HCl 10 mg PO HS Sulfamethox-Tmp 800-160Mg [Bactrim DS 800-160 mg] 0.5 tab PO Q12HR Discharge Medication List ALPRAZolam [Xanax] 0.25 mg PO Q8H PRN 06/13/14 [History] Diclofenac Sodium 1 applic TOPICAL TID 04/13/16 [History] Docusate [Colace] 100 mg PO HS 04/12/17 [History] Ergocalciferol [Vitamin D2 (DRISDOL)] 50,000 unit PO Q7D 04/12/17 [History] Ferrous Sulfate [Iron] 325 mg PO TID 04/12/17 [History] Sertraline HCl [Zoloft] 25 mg PO DAILY 04/12/17 [History] Follow up Appointment(s)/Referral(s): Jamel Wolfe MD [Primary Care Provider] - 1-2 days Discharge Disposition: HOME SELF-CARE
--- NOTE | 2017-04-15 10:55 | HP ---
CHIEF COMPLAINT: Syncope. HISTORY OF PRESENT ILLNESS: Mrs. Leonardo is an 87-year-old female with known history of dementia, history of CVA/TIA with no residual weakness, hypertension , osteoarthritis, and other medical problems, admitted to the hospital with complaints of syncopal episode. The patient was sitting at the counter at home and suddenly she passed out for about a minute. By the time EMS came to hospital patient was alert and oriented x3. Patient felt dizzy and syncopal episode ( ). Again this morning, the patient while she was having coffee she passed out for another 2 to 3 minutes in duration. Patient was found to have heart rate in the 40s on arrival to the ER and EKG showed sinus bradycardia. Cardiology has been consulted for evaluation. Otherwise the patient is poor historian. BUN is 17, creatinine 1.2. Chest x-ray revealed mild interstitial prominence. REVIEW OF SYSTEMS: CONSTITUTIONAL: No recent fever, no chills. No weakness. RESPIRATORY: No cough or sputum production. CARDIOVASCULAR: No chest pain. No short of breath. No leg swelling. ABDOMEN: No nausea, vomiting or abdominal pain. No diarrhea. GENITOURINARY: No dysuria, no hematuria. ENDOCRINE: No heat or cold intolerance. MUSCULOSKELETAL: No joint swelling or deformity. SKIN: No rash or skin lesions. All other fourteen point review of systems negative except as above. PAST MEDICAL HISTORY: 1. History of CVA/TIA. 2. Dementia. 3. Eye disorder. 4. History of pelvic fracture on the right side. 5. Arthritis bilateral hands and feet. 6. Abdominal aortic aneurysm small. 7. Glaucoma right eye. 8. TIA in 2009. 9. Diverticular disease and benign polyp. PAST SURGICAL HISTORY: Appendectomy, cholecystectomy, joint replacement, tonsillectomy, left total knee arthroplasty, colonoscopy, polypectomy, bilateral cataract removal and surgery for glaucoma. SOCIAL HISTORY: Patient never a smoker. FAMILY HISTORY: Father had TIA/CVA. Father of CVA at age 65 years. Mother has dementia and eye disorder. Mother at age of 96 years. HOME MEDICATIONS: Xanax, donepezil, Norvasc, diclofenac sodium, Docusate, vitamin D2, ferrous sulfate, Sertraline, ( ), Bactrim. ALLERGIES: COCONUT OIL. PHYSICAL EXAMINATION: An 87-year-old female lying in bed, awake, alert, oriented x2 to 3. Appears to be in no apparent distress. VITALS: Blood pressure is 128/72, pulse is 67, respirations 16, saturating well on room air. HEENT: Atraumatic, normocephalic. Neck is supple. No JVD. CVS: S1, S2 heard. No murmurs, no gallop. LUNGS: Bilateral lung air entry is present. No wheezing, no crackles. Nonlabored breathing. ABDOMEN: Soft, nontender. Bowel sounds are present. FIRER KILN: Awake, alert, oriented x2 to 3. No focal neurological deficits. EXTREMITIES: No edema. Pulses palpable bilaterally. No clubbing or cyanosis. PSYCHIATRIC: Cooperative. LABORATORY DATA: WBC 6.4, hemoglobin 8.8, RDW 15.3, INR 1.1, sodium 140, potassium 4.3, chloride 106, bicarb is 24, BUN 17, creatinine 1.28. Liver enzymes are not elevated. Serial troponin x3 negative. TSH is 2.260. FT4 is 1.18. UA negative for infection. Chest x-ray showed negative for acute process. CT abdomen and pelvis showed vague 1.5 cm hypodensity along the pancreatic body with relative hypertrophy of pancreatic tail. Recommend pancreatic MRI to rule out pancreatic lesion such as adenocarcinoma, circumferential wall thickening of the gastric antrum, moderate circumferential bladder wall thickening, bilobed ( ), infrarenal abdominal aorta measuring 3.2, 3.1 and 3.2 cm. DISCUSSION AND PLAN: 1. Syncope, possible symptomatic bradycardia. Will continue serial telemonitoring and serial EKGs and troponins. Cardiology has been consulted. Will check orthostatic vitals and follow closely. 2. Hypertension, controlled. 3. History of previous cerebrovascular accident/transient ischemic attack. 4. Dementia. 5. Abdominal aortic aneurysm measuring 3.1 and 3.2 cm. 6. Circumferential wall thickening at the gastric antrum. Could be related to gastritis and direct visualization was indicated as per radiology report. DISCUSSION AND PLAN: Patient will be continued on ferrous sulfate and patient was given 500 mL fluid bolus in the ER. Will continue the home medications and will hold Aricept at this time, which is causing bradycardia. Cardiology is on board. 2-D echo was ordered. Following up closely. Further recommendations based on clinical course. MTDD
--- NOTE | 2017-04-15 10:58 | HP ---
ADDENDUM: IMPRESSION: Anemia secondary to iron deficiency. Continue the iron supplementation. The patient denied any active bleeding. MTDD
== END 2017-04-14 13:50 | disposition home or self-care (01) | DRG 310 ==
LOC: EC 08:13 → SUPCPDRO 08:13 → 6SEL 11:41
PROVIDERS: ADMIT Hospitalist; ATTEND Hospitalist
DX: R00.1 Bradycardia, unspecified (principal); F03.90 Unspecified dementia, unspecified severity, without behavioral disturbance, psychotic disturbance, mood disturbance, and anxiety; I36.1 Nonrheumatic tricuspid (valve) insufficiency; N18.3 Chronic kidney disease, stage 3 (moderate); D63.1 Anemia in chronic kidney disease; I12.9 Hypertensive chronic kidney disease with stage 1 through stage 4 chronic kidney disease, or unspecified chronic kidney disease; D50.9 Iron deficiency anemia, unspecified; R93.3 Abnormal findings on diagnostic imaging of other parts of digestive tract; T44.1X5A Adverse effect of other parasympathomimetics [cholinergics], initial encounter; H40.9 Unspecified glaucoma; I71.4 Abdominal aortic aneurysm, without rupture; K57.90 Diverticulosis of intestine, part unspecified, without perforation or abscess without bleeding; I35.8 Other nonrheumatic aortic valve disorders; I35.1 Nonrheumatic aortic (valve) insufficiency; I34.0 Nonrheumatic mitral (valve) insufficiency; M19.071 Primary osteoarthritis, right ankle and foot; F41.9 Anxiety disorder, unspecified; R53.83 Other fatigue; M19.072 Primary osteoarthritis, left ankle and foot; M19.041 Primary osteoarthritis, right hand; M19.042 Primary osteoarthritis, left hand; Z86.73 Personal history of transient ischemic attack (TIA), and cerebral infarction without residual deficits; Z79.899 Other long term (current) drug therapy; Z82.3 Family history of stroke; Z96.652 Presence of left artificial knee joint; Z81.8 Family history of other mental and behavioral disorders; Z86.010 Personal history of colon polyps; Z91.018 Allergy to other foods; Z71.3 Dietary counseling and surveillance; Z87.81 Personal history of (healed) traumatic fracture; Z98.42 Cataract extraction status, left eye; Z98.41 Cataract extraction status, right eye; Z90.49 Acquired absence of other specified parts of digestive tract
CPT/HCPCS: 36415; 71020; 74176; 80048; 80053; 80061; 81001; 82550; 82553; 83735; 84439; 84443; 84484; 85025; 85610; 85730; 93005; 93306; 93880; 96360; 99285

== ENCOUNTER 2017-06-03 17:55 | Observation (INO) | payer MEDICARE ==
[2017-06-03] MEDS ORDERED: SODIUM CHLORIDE 0.9% 500 ML IV STA (18:31)
[2017-06-03] MEDS ORDERED: ONDANSETRON 4 MG/2 ML VIAL IVP STA (18:31)
[2017-06-03] MEDS ORDERED: SODIUM CHLORIDE 0.9% 1,000 ML IV STA (18:31)
--- NOTE | 2017-06-03 18:35 | ED ---
General Adult HPI - General Source: patient, RN notes reviewed Mode of arrival: wheelchair Limitations: no limitations <Matheus Montelongo - Last Filed: 06/03/17 20:01> <Vahe Martin - Last Filed: 06/03/17 20:35> - General Chief complaint: Nausea/Vomiting/Diarrhea Stated complaint: VOMITING, NAUSEA, JUST SICK Time Seen by Provider: 06/03/17 18:22 - History of Present Illness Initial comments: Patient 87-year-old female who presents emergency room today with a chief complaint of feeling nauseated and having a few episodes of vomiting that started yesterday. She also admits that he experienced some pain to the posterior aspect of her left shoulder. The patient states still feeling nauseated at this time. Denies any other complaints currently. Family member at bedside state that he believes that she has complained about some increased urinary frequency. Denies any other complaints or symptoms at this time. Patient denies any recent fever, chills, shortness of breath, chest pain, back pain, abdominal pain, numbness or tingling, dysuria or hematuria, constipation or diarrhea, headaches or visual changes, or any other complaints. (Matheus Montelongo) - Related Data Home Medications Medication Instructions Recorded Confirmed Ergocalciferol [Vitamin D2 50,000 unit PO Q7D 04/12/17 06/03/17 (DRISDOL)] Ferrous Sulfate [Iron] 325 mg PO TID 04/12/17 06/03/17 Sertraline HCl [Zoloft] 25 mg PO DAILY 04/12/17 06/03/17 Bimatoprost [Lumigan .01% Ophth 1 drop BOTH EYES HS 06/03/17 06/03/17 Soln] Diclofenac Sodium Gel [Voltaren 2 gm TOPICAL TID PRN 06/03/17 06/03/17 Gel] Donepezil [Aricept] 10 mg PO HS 06/03/17 06/03/17 Latanoprost Ophth [Xalatan 0.005%] 1 drops BOTH EYES HS 06/03/17 06/03/17 amLODIPine [Norvasc] 5 mg PO DAILY 06/03/17 06/03/17 Allergies Allergy/AdvReac Type Severity Reaction Status Date / Time coconut oil Allergy Unknown Verified 04/12/17 09:09 Review of Systems ROS Other: All systems not noted in ROS Statement are negative. <MontelongoMatheus - Last Filed: 06/03/17 20:01> ROS Other: All systems not noted in ROS Statement are negative. <Vahe Martin - Last Filed: 06/03/17 20:35> ROS Statement: Those systems with pertinent positive or pertinent negative responses have been documented in the HPI. Past Medical History Past Medical History: CVA/TIA, Dementia, Eye Disorder, Hypertension, Osteoarthritis (OA), Vascular Disorder Additional Past Medical History / Comment(s): pelvic fracture right side, arthritis bilateral hands and feet, AAA-small, glaucoma R eye, TIA in 2010, diverticular dx/benign polyps History of Any Multi-Drug Resistant Organisms: None Reported Past Surgical History: Appendectomy, Cholecystectomy, Joint Replacement, Tonsillectomy Additional Past Surgical History / Comment(s): left total knee surgery, colonoscopy/polypectomy, bilateral cataract removal, surgery for glaucoma. Past Anesthesia/Blood Transfusion Reactions: No Reported Reaction, Motion Sickness Past Psychological History: Anxiety Smoking Status: Never smoker - Past Family History Father Family Medical History: CVA/TIA Additional Family Medical History / Comment(s): Father of a CVA at the age of 65yrs. Mother Family Medical History: Dementia, Eye Disorder Additional Family Medical History / Comment(s): Mother at the age of 96yrs. She was healthy until age 90 when she went blind and had dementia. <MontelongoMatheus - Last Filed: 06/03/17 20:01> General Exam Limitations: no limitations <Matheus Montelongo - Last Filed: 06/03/17 20:01> <Vahe Martin - Last Filed: 06/03/17 20:35> - General Exam Comments Initial Comments: General: The patient is awake and alert, in no distress, and does not appear acutely ill. Eye: Pupils are equal, round and reactive to light, extra-ocular movements are intact. No nystagmus. There is normal conjunctiva bilaterally. No signs of icterus. Ears, nose, mouth and throat: There are moist mucous membranes and no oral lesions. Neck: The neck is supple, there is no tenderness or JVD. Cardiovascular: There is a regular rate and rhythm. No murmur, rub or gallop is appreciated. Respiratory: Lungs are clear to auscultation, respirations are non-labored, breath sounds are equal. No wheezes, stridor, rales, or rhonchi. Gastrointestinal: Soft, non-distended, non-tender abdomen without masses or organomegaly noted. There is no rebound or guarding present. No CVA tenderness. Bowel sounds are unremarkable. Musculoskeletal: Normal ROM, no tenderness. Strength 5/5. Sensation intact. Pulses equal bilaterally 2+. Neurological: A&O x 3. CN II-XII intact, There are no obvious motor or sensory deficits. Coordination appears grossly intact. Speech is normal. Skin: Skin is warm and dry and no rashes or lesions are noted. Psychiatric: Cooperative, appropriate mood & affect, normal judgment. (Matheus Montelongo) EKG Findings - EKG Comments: EKG Findings:: EKG performed at 1903: Shows sinus bradycardia 59 bpm. AK interval 2063 QRS 96. QT/QTc 426/421. No acute ST changes. <Matheus Montelongo - Last Filed: 06/03/17 20:01> Medical Decision Making - Lab Data Result diagrams: 06/03/17 18:45 06/03/17 18:45 <Matheus Montelongo - Last Filed: 06/03/17 20:01> - Lab Data Result diagrams: 06/03/17 18:45 06/03/17 18:45 <Vahe Martin - Last Filed: 06/03/17 20:35> - Medical Decision Making Patient's labs been reviewed. Negative cardiac enzymes. Patient's chest x- rays negative for any acute abnormality. Patient resting comfortably in the stretcher denies any pain at this time did have some left shoulder discomfort prior to arrival. This had some nausea vomiting over the last day. At this time nausea improved patient states no pain. Patient will be admitted for serial enzymes. (Matheus Montelongo) The patient will be admitted for observation. Dr. Mario Phelan public speaking coach [facility] (Vahe Martin) - Lab Data Lab Results 06/03/17 06/03/17 06/03/17 Range/Units 18:45 18:45 18:45 WBC 6.3 (3.8-10.6) k/uL RBC 4.31 (3.80-5.40) m/uL Hgb 11.5 D (11.4-16.0) gm/dL Hct 36.5 (34.0-46.0) % MCV 84.6 (80.0-100.0) fL MCH 26.7 (25.0-35.0) pg MCHC 31.5 (31.0-37.0) g/dL RDW 19.3 H (11.5-15.5) % Plt Count 304 (150-450) k/uL Neutrophils % 70 % Lymphocytes % 19 % Monocytes % 6 % Eosinophils % 3 % Basophils % 1 % Neutrophils # 4.4 (1.3-7.7) k/uL Lymphocytes # 1.2 (1.0-4.8) k/uL Monocytes # 0.4 (0-1.0) k/uL Eosinophils # 0.2 (0-0.7) k/uL Basophils # 0.1 (0-0.2) k/uL Hypochromasia Slight Anisocytosis Slight PT (9.0-12.0) sec INR (<1.2) APTT (22.0-30.0) sec Sodium 135 L (137-145) mmol/L Potassium 4.3 (3.5-5.1) mmol/L Chloride 103 (98-107) mmol/L Carbon Dioxide 23 (22-30) mmol/L Anion Gap 9 mmol/L BUN 11 (7-17) mg/dL Creatinine 0.91 (0.52-1.04) mg/dL Est GFR (MDRD) Af Amer >60 (>60 ml/min/1.73 sqM) Est GFR (MDRD) Non-Af 59 (>60 ml/min/1.73 sqM) Glucose 97 (74-99) mg/dL Calcium 9.6 (8.4-10.2) mg/dL Total Bilirubin 0.5 (0.2-1.3) mg/dL AST 26 (14-36) U/L ALT 31 (9-52) U/L Alkaline Phosphatase 80 (38-126) U/L Total Creatine Kinase 121 (30-135) U/L CK-MB (CK-2) 2.2 (0.0-2.4) ng/mL CK-MB (CK-2) Rel Index 1.8 Troponin I <0.012 (0.000-0.034) ng/mL Total Protein 6.9 (6.3-8.2) g/dL Albumin 4.2 (3.5-5.0) g/dL Amylase 71 (30-110) U/L Lipase 127 (23-300) U/L Urine Color Urine Appearance (Clear) Urine pH (5.0-8.0) Ur Specific [place] (1.001-1.035) Urine Protein (Negative) Urine Glucose (UA) (Negative) Urine Ketones (Negative) Urine Blood (Negative) Urine Nitrite (Negative) Urine Bilirubin (Negative) Urine Urobilinogen (<2.0) mg/dL Ur Leukocyte Esterase (Negative) 06/03/17 06/03/17 Range/Units 18:45 19:30 WBC (3.8-10.6) k/uL RBC (3.80-5.40) m/uL Hgb (11.4-16.0) gm/dL Hct (34.0-46.0) % MCV (80.0-100.0) fL MCH (25.0-35.0) pg MCHC (31.0-37.0) g/dL RDW (11.5-15.5) % Plt Count (150-450) k/uL Neutrophils % % Lymphocytes % % Monocytes % % Eosinophils % % Basophils % % Neutrophils # (1.3-7.7) k/uL Lymphocytes # (1.0-4.8) k/uL Monocytes # (0-1.0) k/uL Eosinophils # (0-0.7) k/uL Basophils # (0-0.2) k/uL Hypochromasia Anisocytosis PT 10.9 (9.0-12.0) sec INR 1.1 (<1.2) APTT 24.6 (22.0-30.0) sec Sodium (137-145) mmol/L Potassium (3.5-5.1) mmol/L Chloride (98-107) mmol/L Carbon Dioxide (22-30) mmol/L Anion Gap mmol/L BUN (7-17) mg/dL Creatinine (0.52-1.04) mg/dL Est GFR (MDRD) Af Amer (>60 ml/min/1.73 sqM) Est GFR (MDRD) Non-Af (>60 ml/min/1.73 sqM) Glucose (74-99) mg/dL Calcium (8.4-10.2) mg/dL Total Bilirubin (0.2-1.3) mg/dL AST (14-36) U/L ALT (9-52) U/L Alkaline Phosphatase (38-126) U/L Total Creatine Kinase (30-135) U/L CK-MB (CK-2) (0.0-2.4) ng/mL CK-MB (CK-2) Rel Index Troponin I (0.000-0.034) ng/mL Total Protein (6.3-8.2) g/dL Albumin (3.5-5.0) g/dL Amylase (30-110) U/L Lipase (23-300) U/L Urine Color Light Yellow Urine Appearance Clear (Clear) Urine pH 7.0 (5.0-8.0) Ur Specific [place] 1.004 (1.001-1.035) Urine Protein Negative (Negative) Urine Glucose (UA) Negative (Negative) Urine Ketones Negative (Negative) Urine Blood Negative (Negative) Urine Nitrite Negative (Negative) Urine Bilirubin Negative (Negative) Urine Urobilinogen <2.0 (<2.0) mg/dL Ur Leukocyte Esterase Negative (Negative) Disposition Time of Disposition: 20:03 <Matheus Montelongo - Last Filed: 06/03/17 20:01> <Vahe Martin - Last Filed: 06/03/17 20:35> Clinical Impression: Atypical chest pain, Nausea & vomiting Disposition: ADMITTED IP TO THIS [facility] Condition: Good Referrals: Jamel Wolfe MD [Primary Care Provider] - 1-2 days
[2017-06-03 18:57] LABS: Anisocytosis Slight; Basophils # (A) 0.1 k/uL (0-0.2); Basophils % (A) 1 %; CH 25.9; CHCM 30.7; Eosinophils # (A) 0.2 k/uL (0-0.7); Eosinophils % (A) 3 %; HCT 36.5 % (34.0-46.0); Hypochromasia Slight; Luc # (Auto) 0.13; Luc % (Auto) 2; Lymphocytes # (A) 1.2 k/uL (1.0-4.8); Lymphocytes % (A) 19 %; MCH 26.7 pg (25.0-35.0); MCHC 31.5 g/dL (31.0-37.0); MCV 84.6 fL (80.0-100.0); Mean Platelet Volume 7.5; Monocytes # (A) 0.4 k/uL (0-1.0); Monocytes % (A) 6 %; Neutrophils # (A) 4.4 k/uL (1.3-7.7); Neutrophils % (A) 70 %; RBC 4.31 m/uL (3.80-5.40); RDW 19.3 % (11.5-15.5); WBC 6.3 k/uL (3.8-10.6); WBC (Perox) 6.52
[2017-06-03 19:02] LABS: HGB 11.5 gm/dL (11.4-16.0)
[2017-06-03 19:06] LABS: INR 1.1 (<1.2); Partial Thromboplastin Time 24.6 sec (22.0-30.0); Prothrombin Time 10.9 sec (9.0-12.0)
[2017-06-03 19:08] LABS: ALT 31 U/L (9-52); AST 26 U/L (14-36); Alkaline Phosphatase 80 U/L (38-126); Amylase 71 U/L (30-110); Anion Gap 9 mmol/L; Blood Urea Nitrogen 11 mg/dL (7-17); Calcium 9.6 mg/dL (8.4-10.2); Carbon Dioxide 23 mmol/L (22-30); Chloride 103 mmol/L (98-107); Glucose 97 mg/dL (74-99); Non-African American GFR(MDRD) 59 (>60 ml/min/1.73 sqM); Potassium 4.3 mmol/L (3.5-5.1); Sodium 135 mmol/L (137-145); Total Bilirubin 0.5 mg/dL (0.2-1.3); Total Protein 6.9 g/dL (6.3-8.2)
--- NOTE | 2017-06-03 19:20 | XR ---
EXAMINATION TYPE: XR chest 2V DATE OF EXAM: 06/03/2017 COMPARISON: 04/12/2017 HISTORY: Vomiting and back pain TECHNIQUE: Frontal and lateral views of the chest are obtained. FINDINGS: There is no heart failure. Thoracic aorta is atheromatous. Lungs are clear of consolidatio n. There is no pleural effusion. IMPRESSION: Atheromatous aorta. No active cardiopulmonary disease. No change.
[2017-06-03 19:22] LABS: Creatine Kinase 121 U/L (30-135)
[2017-06-03 19:34] LABS: Creatine Kinase MB 2.2 ng/mL (0.0-2.4); Troponin I <0.012 ng/mL (0.000-0.034)
[2017-06-03 19:46] LABS: Appearance,Urine Clear (Clear); Bilirubin,Urine Negative (Negative); Glucose,Urine (UA) Negative (Negative); Ketones,Urine Negative (Negative); Leukocyte Esterase,Urine Negative (Negative); Nitrite,Urine Negative (Negative); Protein,Urine Negative (Negative); Specific Gravity,Urine 1.004 (1.001-1.035); UA Billing (MACRO vs. MICRO) CHEM; Urobilinogen,Urine <2.0 mg/dL (<2.0)
[2017-06-03] MEDS ORDERED: NITROGLYCERIN SL TABS 0.4 MG TAB SUBLINGUAL PRN (20:07)
[2017-06-03] MEDS ORDERED: SODIUM CHLORIDE 0.9% 1,000 ML IV ONE (20:07)
[2017-06-03] MEDS ORDERED: ASPIRIN 81 MG PO STA (20:07)
[2017-06-03] MEDS ORDERED: ACETAMINOPHEN TAB 325 MG TAB PO PRN (22:15)
[2017-06-03] MEDS ORDERED: ONDANSETRON 4 MG/2 ML VIAL IVP PRN (22:16)
[2017-06-04 01:48] LABS: Creatine Kinase 97 U/L (30-135)
[2017-06-04 02:01] LABS: Creatine Kinase MB 1.9 ng/mL (0.0-2.4); Troponin I <0.012 ng/mL (0.000-0.034)
[2017-06-04 05:07] VITALS: RESP 16
[2017-06-04 07:14] LABS: Cholesterol 215 mg/dL (<200); HDL Cholesterol 80 mg/dL (40-60)
[2017-06-04 07:24] LABS: Creatine Kinase 88 U/L (30-135)
[2017-06-04 07:36] LABS: Creatine Kinase MB 1.9 ng/mL (0.0-2.4); Troponin I <0.012 ng/mL (0.000-0.034)
[2017-06-04] MEDS ORDERED: ASPIRIN 325 MG TAB PO SCH (09:00)
--- NOTE | 2017-06-04 12:20 | P.CRDCN ---
History of Present Illness Consult date: 06/04/17 History of present illness: This is a 87-year-old female. Past medical history significant for anemia, sinus bradycardia, essential hypertension and dementia. Patient presents with complaints of nausea and vomiting. Apparently the patient was brought to the emergency room by her neighbor. There is no family or friends at the bedside at the time of my examination. Upon interviewing the patient she denies any such symptoms. She denies chest pain, shortness of breath, palpitations, nausea or vomiting. She does have a history of dementia and is a poor historian. She is unable to verbalize why she was brought to the emergency room. Her son, Que was on the phone. He states he is awaiting vacation in [place] on February 01 hospital this time. He does agree that his mother has a history of dementia and she told him she doesn't know why she is here either. She was recently seen in the hospital for symptoms of bradycardia and anemia and was discharged home with a 30 day event monitor. She followed up with Dr. VC gonzalez after discontinuing the event monitor. It did show episodes of sinus tachycardia. EKG done shows sinus bradycardia with first-degree AV block, rate of 59 beats per minute with nonspecific T-wave abnormality and left ventricular hypertrophy. Hemoglobin 11.5, platelets 304, potassium 4.3, BUN 11 creatinine 0.91, troponin negative 3, total cholesterol 215, LDL 122, HDL 80, triglycerides 67. Chest x-ray showed no active cardiopulmonary process. Most recent echo dated 03/27/2017 indicates preserved left ventricular function with an ejection fraction of 50-55% and severely dilated left atrium. Review of Systems REVIEW OF SYSTEMS: Patient denies any chest discomfort. No shortness of breath. No diaphoresis. Denies headache, dizziness, blurred vision, double vision. No dyspnea on exertion. Patient denies any stomach discomfort. No nausea, vomiting. No hematochezia. No hematemesis. Denies any black stools or blood in his stools. No syncope. No palpitations. No cough. No recent fever or chills. No muscle weakness or numbness. Past Medical History Past Medical History: CVA/TIA, Dementia, Eye Disorder, Hypertension, Osteoarthritis (OA), Vascular Disorder Additional Past Medical History / Comment(s): pelvic fracture right side, arthritis bilateral hands and feet, AAA-small, glaucoma R eye, TIA in 2010, diverticular dx/benign polyps History of Any Multi-Drug Resistant Organisms: None Reported Past Surgical History: Appendectomy, Cholecystectomy, Joint Replacement, Tonsillectomy Additional Past Surgical History / Comment(s): left total knee surgery, colonoscopy/polypectomy, bilateral cataract removal, surgery for glaucoma. Past Anesthesia/Blood Transfusion Reactions: No Reported Reaction, Motion Sickness Past Psychological History: Anxiety Additional Psychological History / Comment(s): Pt states she resides alone. She uses a cane and has a walker when needed to use. She drives minimally. She has very helpful adult children. She has no home care. Smoking Status: Never smoker Past Alcohol Use History: None Reported Past Drug Use History: None Reported - Past Family History Father Family Medical History: CVA/TIA Additional Family Medical History / Comment(s): Father of a CVA at the age of 65yrs. Mother Family Medical History: Dementia, Eye Disorder Additional Family Medical History / Comment(s): Mother at the age of 96yrs. She was healthy until age 90 when she went blind and had dementia. Medications and Allergies Home Medications Medication Instructions Recorded Confirmed Type Ergocalciferol [Vitamin D2 50,000 unit PO Q7D 04/12/17 06/03/17 History (DRISDOL)] Ferrous Sulfate [Iron] 325 mg PO TID 04/12/17 06/03/17 History Sertraline HCl [Zoloft] 25 mg PO DAILY 04/12/17 06/03/17 History Bimatoprost [Lumigan .01% Ophth 1 drop BOTH EYES HS 06/03/17 06/03/17 History Soln] Diclofenac Sodium Gel [Voltaren 2 gm TOPICAL TID PRN 06/03/17 06/03/17 History Gel] Donepezil [Aricept] 10 mg PO HS 06/03/17 06/03/17 History Latanoprost Ophth [Xalatan 0.005%] 1 drops BOTH EYES HS 06/03/17 06/03/17 History amLODIPine [Norvasc] 5 mg PO DAILY 06/03/17 06/03/17 History Allergies Allergy/AdvReac Type Severity Reaction Status Date / Time coconut oil Allergy Unknown Verified 04/12/17 09:09 Physical Exam Vitals: Vital Signs Temp Pulse Pulse Pulse Resp BP BP 06/04/17 08:00 98.0 F 62 52 L 16 149/65 06/04/17 04:00 98.3 F 52 L 16 121/68 06/04/17 03:38 54 L 18 06/04/17 00:00 98.4 F 58 L 18 136/61 06/03/17 21:52 55 L 16 06/03/17 21:00 98.1 F 75 16 06/03/17 20:49 98.3 F 81 17 150/70 06/03/17 18:19 99.0 F 77 18 131/67 Pulse Ox 06/04/17 08:00 96 06/04/17 04:00 96 06/04/17 03:38 06/04/17 00:00 98 06/03/17 21:52 06/03/17 21:00 97 06/03/17 20:49 96 06/03/17 18:19 96 Intake and Output 06/03/17 06/04/17 06/04/17 22:59 06:59 14:59 Other: Voiding Method Toilet Toilet Toilet Diaper Diaper # Voids 1 2 Weight 63.503 kg GENERAL: This is a 87-year-old female in no apparent distress at the time of my examination. HEENT: Head is atraumatic, normocephalic. Pupils are equal, round. Sclerae anicteric. Conjunctivae are clear. Mucous membranes of the mouth are moist. Neck is supple. There is no jugular venous distention. No carotid bruit is heard. LUNGS: Clear to auscultation no wheezes, rales or rhonchi. No chest wall tenderness is noted on palpation or with deep breathing. HEART: Regular rate and rhythm with systolic ejection murmur at the base, no rubs or gallops. S1 and S2 heard. ABDOMEN: Soft, nontender. Bowel sounds are heard. No organomegaly noted. EXTREMITIES: 2+ peripheral pulses with no evidence of peripheral edema and no calf tenderness noted. NEUROLOGIC: Patient is awake, alert and oriented x2-3. Results 06/03/17 18:45 06/03/17 18:45 Cardiac Enzymes 06/03/17 06/03/17 06/04/17 Range/Units 18:45 18:45 01:09 AST 26 (14-36) U/L CK-MB (CK-2) 2.2 1.9 (0.0-2.4) ng/mL Troponin I <0.012 <0.012 (0.000-0.034) ng/mL 06/04/17 Range/Units 06:32 AST (14-36) U/L CK-MB (CK-2) 1.9 (0.0-2.4) ng/mL Troponin I <0.012 (0.000-0.034) ng/mL Coagulation 06/03/17 Range/Units 18:45 PT 10.9 (9.0-12.0) sec APTT 24.6 (22.0-30.0) sec Lipids 06/04/17 Range/Units 06:32 Triglycerides 67 (<150) mg/dL Cholesterol 215 H (<200) mg/dL HDL Cholesterol 80 H (40-60) mg/dL CBC 06/03/17 Range/Units 18:45 WBC 6.3 (3.8-10.6) k/uL RBC 4.31 (3.80-5.40) m/uL Hgb 11.5 D (11.4-16.0) gm/dL Hct 36.5 (34.0-46.0) % Plt Count 304 (150-450) k/uL Comprehensive Metabolic Panel 06/03/17 Range/Units 18:45 Sodium 135 L (137-145) mmol/L Potassium 4.3 (3.5-5.1) mmol/L Chloride 103 (98-107) mmol/L Carbon Dioxide 23 (22-30) mmol/L BUN 11 (7-17) mg/dL Creatinine 0.91 (0.52-1.04) mg/dL Glucose 97 (74-99) mg/dL Calcium 9.6 (8.4-10.2) mg/dL AST 26 (14-36) U/L ALT 31 (9-52) U/L Alkaline Phosphatase 80 (38-126) U/L Total Protein 6.9 (6.3-8.2) g/dL Albumin 4.2 (3.5-5.0) g/dL Current Medications Generic Name Dose Route Start Last Admin Trade Name Freq PRN Reason Stop Dose Admin Acetaminophen 650 mg 06/03/17 22:15 06/03/17 22:35 Tylenol Tab PO 650 mg Q4HR PRN Administration Fever and/ or Pain Aspirin 325 mg 06/04/17 09:00 Aspirin PO DAILY JANNETTE Nitroglycerin 0.4 mg 06/03/17 20:07 Nitrostat SUBLINGUAL Q5M PRN Chest Pain Ondansetron HCl 4 mg 06/03/17 22:16 Zofran IVP Q6HR PRN Nausea And Vomiting Intake and Output 06/03/17 06/04/17 06/04/17 22:59 06:59 14:59 Other: Voiding Method Toilet Toilet Toilet Diaper Diaper # Voids 1 2 Weight 63.503 kg 06/03/17 18:45 06/03/17 18:45 EKG Interpretations (text) EKG indicates sinus bradycardia with a first-degree AV block with nonspecific ST -T wave abnormality. Left ventricular hypertrophy. Assessment and Plan Plan: ASSESSMENT 1. Nausea, resolved 2. History of essential hypertension 3. History of symptomatic anemia PLAN Patient has recently been admitted and had a full cardiac workup. At this time we will continue the current medical regimen. She can follow-up with Dr. VC Pastor in 2 weeks. Nurse Practitioner note has been reviewed, I agree with a documented findings and plan of care. Patient was seen and examined.
[2017-06-04 12:26] VITALS: BP 134/60; PULSE 76; TEMP 98.7
--- NOTE | 2017-06-04 16:06 | P.HPIM ---
History of Present Illness H&P Date: 06/04/17 Chief Complaint: Nausea vomiting This is a 87-year-old female with a Past medical history significant for anemia, sinus bradycardia, osteoarthritis and small AAA, essential hypertension and dementia. Patient presents with complaints of nausea and vomiting. Apparently the patient was brought to the emergency room by her neighbor. She denies chest pain, shortness of breath, palpitations, nausea or vomiting. She does have a history of dementia and is a poor historian. She was recently seen in the hospital for symptoms of bradycardia and anemia and was discharged home with a 30 day event monitor. She followed up with Dr. VC rosales after discontinuing the event monitor. It did show episodes of sinus tachycardia. EKG done shows sinus bradycardia with first-degree AV block, rate of 59 beats per minute with nonspecific T-wave abnormality and left ventricular hypertrophy. Hemoglobin 11.5, platelets 304, potassium 4.3, BUN 11 creatinine 0.91, troponin negative 3, total cholesterol 215, LDL 122, HDL 80, triglycerides 67. Chest x-ray showed no active cardiopulmonary process. Most recent echo dated 03/27/2017 indicates preserved left ventricular function with an ejection fraction of 50-55% and severely dilated left atrium. Review of Systems Constitutional: Patient denies any fever or chills . No generalized weakness or weight loss. Abdomen: Patient denied nausea vomiting and diarrhea and abdominal pain. Cardiovascular: Patient denies any chest pain or short of breath no palpitations. Respiratory: patient denied any cough is from production. No shortness of breath Neurologic: Patient denied any numbness or tingling headache. Musculoskeletal: Patient denies any complaints of joint swelling or deformity. Skin: Negative Psychiatric: Negative Endocrine: No heat or cold intolerance. No recent weight gain. Genitourinary: No dysuria or hematuria. Patient is a poor historian. Complete review of systems could not be obtained from the patient Past Medical History Past Medical History: CVA/TIA, Dementia, Eye Disorder, Hypertension, Osteoarthritis (OA), Vascular Disorder Additional Past Medical History / Comment(s): pelvic fracture right side, arthritis bilateral hands and feet, AAA-small, glaucoma R eye, TIA in 2009, diverticular dx/benign polyps History of Any Multi-Drug Resistant Organisms: None Reported Past Surgical History: Appendectomy, Cholecystectomy, Joint Replacement, Tonsillectomy Additional Past Surgical History / Comment(s): left total knee surgery, colonoscopy/polypectomy, bilateral cataract removal, surgery for glaucoma. Past Anesthesia/Blood Transfusion Reactions: No Reported Reaction, Motion Sickness Past Psychological History: Anxiety Additional Psychological History / Comment(s): Pt states she resides alone. She uses a cane and has a walker when needed to use. She drives minimally. She has very helpful adult children. She has no home care. Smoking Status: Never smoker Past Alcohol Use History: None Reported Past Drug Use History: None Reported - Past Family History Father Family Medical History: CVA/TIA Additional Family Medical History / Comment(s): Father of a CVA at the age of 65yrs. Mother Family Medical History: Dementia, Eye Disorder Additional Family Medical History / Comment(s): Mother at the age of 96yrs. She was healthy until age 90 when she went blind and had dementia. Medications and Allergies Home Medications Medication Instructions Recorded Confirmed Type Ergocalciferol [Vitamin D2 50,000 unit PO Q7D 04/12/17 06/03/17 History (ADDISON)] Ferrous Sulfate [Iron] 325 mg PO TID 04/12/17 06/03/17 History Sertraline HCl [Zoloft] 25 mg PO DAILY 04/12/17 06/03/17 History Bimatoprost [Lumigan .01% Ophth 1 drop BOTH EYES HS 06/03/17 06/03/17 History Soln] Diclofenac Sodium Gel [Voltaren 2 gm TOPICAL TID PRN 06/03/17 06/03/17 History Gel] Donepezil [Aricept] 10 mg PO HS 06/03/17 06/03/17 History Latanoprost Ophth [Xalatan 0.005%] 1 drops BOTH EYES HS 06/03/17 06/03/17 History amLODIPine [Norvasc] 5 mg PO DAILY 06/03/17 06/03/17 History Allergies Allergy/AdvReac Type Severity Reaction Status Date / Time coconut oil Allergy Unknown Verified 04/12/17 09:09 Physical Exam Vitals: Vital Signs Temp Pulse Pulse Pulse Resp BP BP 06/04/17 12:00 98.7 F 76 16 134/60 06/04/17 08:00 98.0 F 62 52 L 16 149/65 06/04/17 04:00 98.3 F 52 L 16 121/68 06/04/17 03:38 54 L 18 06/04/17 00:00 98.4 F 58 L 18 136/61 06/03/17 21:52 55 L 16 06/03/17 21:00 98.1 F 75 16 06/03/17 20:49 98.3 F 81 17 150/70 06/03/17 18:19 99.0 F 77 18 131/67 Pulse Ox 06/04/17 12:00 91 L 06/04/17 08:00 96 06/04/17 04:00 96 06/04/17 03:38 06/04/17 00:00 98 06/03/17 21:52 06/03/17 21:00 97 06/03/17 20:49 96 06/03/17 18:19 96 Intake and Output 06/03/17 06/04/17 06/04/17 22:59 06:59 14:59 Other: Voiding Method Toilet Toilet Toilet Diaper Diaper # Voids 1 2 1 Weight 63.503 kg PHYSICAL EXAMINATION: Patient is lying in the bed comfortably, no acute distress, awake alert and oriented.. HEENT: Normocephalic. Neck is supple. Pupils reactive. Nostrils clear. Oral cavity is moist. Ears reveal no drainage. Neck reveals no JVD, carotid bruits, or thyromegaly. CHEST EXAMINATION: Trachea is central. Symmetrical expansion. Lung [place] clear to auscultation and percussion. CARDIAC: Normal S1, S2 with no gallops. No murmurs ABDOMEN: Soft. Bowel sounds normal. No organomegaly. No abdominal bruits. Extremities: reveal no edema. No clubbing or cyanosis Neurologically awake, alert, oriented x3 with well-coordinated movements. No focal deficits noted Skin: No rash or skin lesions. Psychiatric: Operative. Nonsuicidal Musculoskeletal: No joint swelling or deformity. Normal range of motion. Results CBC & Chem 7: 06/03/17 18:45 06/03/17 18:45 Labs: Abnormal Lab Results - Last 24 Hours (Table) 06/03/17 06/03/17 06/04/17 Range/Units 18:45 18:45 06:32 RDW 19.3 H (11.5-15.5) % Sodium 135 L (137-145) mmol/L Cholesterol 215 H (<200) mg/dL LDL Cholesterol, Calc 122 H (0-99) mg/dL HDL Cholesterol 80 H (40-60) mg/dL Thrombosis Risk Factor Assmnt - Choose All That Apply Each Risk Factor Represents 3 Points: Age 75 years or older Thrombosis Risk Factor Assessment Total Risk Factor Score: 3 Thrombosis Risk Factor Assessment Level: Moderate Risk Assessment and Plan Plan: #1 nausea and vomiting and diarrhea. Resolved now #2 recent history of sinus bradycardia. Status post event monitor showed episodes of sinus tachycardia only. #3 osteoarthritis #4 dementia #5 small AAA #6 iron deficiency anemia hemoglobin at 11.5 now Plan: Patiently continued on telemetry monitoring and symptomatic management for nausea and vomiting. Which are improved now. Cardiology's and the patient and recommended no further workup at this time and recent echocardiogram showed normal ejection fraction, no significant wall R abnormality. Hemoglobin is stable at 11.5 and denied any medical problems at this time.
--- NOTE | 2017-06-04 16:08 | P.DS ---
Providers Date of admission: 06/03/17 20:22 Expected date of discharge: 06/04/17 Attending physician: Jason Lubin Consults: 06/03/17 20:07 Consult Physician Stat Consulting Provider: [facility] Consult Reason/Comments: Atypical chest pain Do you want consulting provider notified?: Yes Primary care physician: [facility] Course: Discharge diagnosis #1 nausea and vomiting and diarrhea. Resolved now #2 recent history of sinus bradycardia. Status post event monitor showed episodes of sinus tachycardia only. #3 osteoarthritis #4 dementia #5 small AAA #6 iron deficiency anemia hemoglobin at 11.5 now This is a 87-year-old female with a Past medical history significant for anemia, sinus bradycardia, osteoarthritis and small AAA, essential hypertension and dementia. Patient presents with complaints of nausea and vomiting. Apparently the patient was brought to the emergency room by her neighbor. She denies chest pain, shortness of breath, palpitations, nausea or vomiting. She does have a history of dementia and is a poor historian. She was recently seen in the hospital for symptoms of bradycardia and anemia and was discharged home with a 30 day event monitor. She followed up with Dr. VC pastor after discontinuing the event monitor. It did show episodes of sinus tachycardia. EKG done shows sinus bradycardia with first-degree AV block, rate of 59 beats per minute with nonspecific T-wave abnormality and left ventricular hypertrophy. Hemoglobin 11.5, platelets 304, potassium 4.3, BUN 11 creatinine 0.91, troponin negative 3, total cholesterol 215, LDL 122, HDL 80, triglycerides 67. Chest x-ray showed no active cardiopulmonary process. Most recent echo dated 03/27/2017 indicates preserved left ventricular function with an ejection fraction of 50-55% and severely dilated left atrium. Patiently was continued on telemetry monitoring and symptomatic management for nausea and vomiting. Which are improved now. Cardiology's and the patient and recommended no further workup at this time and recent echocardiogram showed normal ejection fraction, no significant valvular abnormality. Hemoglobin is stable at 11.5 and denied any complaints at this time. Patient is stable to be discharged home. Patient Condition at Discharge: Good Plan - Discharge Summary New Discharge Prescriptions: Continue Ferrous Sulfate [Iron] 325 mg PO TID Sertraline HCl [Zoloft] 25 mg PO DAILY Ergocalciferol [Vitamin D2 (DRISDOL)] 50,000 unit PO Q7D Latanoprost Ophth [Xalatan 0.005%] 1 drops BOTH EYES HS amLODIPine [Norvasc] 5 mg PO DAILY Donepezil [Aricept] 10 mg PO HS Diclofenac Sodium Gel [Voltaren Gel] 2 gm TOPICAL TID PRN PRN Reason: Pain Bimatoprost [Lumigan .01% Ophth Soln] 1 drop BOTH EYES HS Discharge Medication List Ergocalciferol [Vitamin D2 (DRISDOL)] 50,000 unit PO Q7D 04/12/17 [History] Ferrous Sulfate [Iron] 325 mg PO TID 04/12/17 [History] Sertraline HCl [Zoloft] 25 mg PO DAILY 04/12/17 [History] Bimatoprost [Lumigan .01% Ophth Soln] 1 drop BOTH EYES HS 06/03/17 [History] Diclofenac Sodium Gel [Voltaren Gel] 2 gm TOPICAL TID PRN 06/03/17 [History] Donepezil [Aricept] 10 mg PO HS 06/03/17 [History] Latanoprost Ophth [Xalatan 0.005%] 1 drops BOTH EYES HS 06/03/17 [History] amLODIPine [Norvasc] 5 mg PO DAILY 06/03/17 [History] Follow up Appointment(s)/Referral(s): Jamel Wolfe MD [Primary Care Provider] - 1-2 days (06/07 at 8:00am) Jax Pastor MD [STAFF PHYSICIAN] - 2 Weeks (office will call with appointment date and time) Patient Instructions/Handouts: Chest Pain (DC) Discharge Disposition: HOME SELF-CARE
== END 2017-06-04 15:25 | disposition home or self-care (01) ==
LOC: EC 17:55 → 3OBS 20:22
PROVIDERS: ADMIT Hospitalist; ATTEND Hospitalist
DX: R11.2 Nausea with vomiting, unspecified (principal); R19.7 Diarrhea, unspecified; R07.89 Other chest pain; H40.9 Unspecified glaucoma; M19.041 Primary osteoarthritis, right hand; M19.042 Primary osteoarthritis, left hand; F41.9 Anxiety disorder, unspecified; F03.90 Unspecified dementia, unspecified severity, without behavioral disturbance, psychotic disturbance, mood disturbance, and anxiety; R00.1 Bradycardia, unspecified; I70.0 Atherosclerosis of aorta; I10 Essential (primary) hypertension; I44.0 Atrioventricular block, first degree; I71.4 Abdominal aortic aneurysm, without rupture; D50.9 Iron deficiency anemia, unspecified; Z79.899 Other long term (current) drug therapy; Z82.3 Family history of stroke; Z86.73 Personal history of transient ischemic attack (TIA), and cerebral infarction without residual deficits; Z91.018 Allergy to other foods
CPT/HCPCS: 96361 ×3; 96374; 99285; 36415; 93005; 80061; 80053; 82150; 82550 ×2; 82553 ×2; 83690; 84484 ×2; 85025; 85610; 85730; 81003; 71020; G0378 ×2; J2405

== ENCOUNTER 2017-06-12 19:36 | Inpatient (IN) | payer MEDICARE ==
--- NOTE | 2017-06-12 20:26 | ED ---
General Adult HPI - General Chief complaint: Fall Stated complaint: L shoulder and hip pain Time Seen by Provider: 06/12/17 19:42 Source: family, EMS, RN notes reviewed Mode of arrival: EMS Limitations: no limitations - History of Present Illness Initial comments: Patient 87-year-old female who presents emergency room today with chief complaint of a fall. She does not that she was walking outside [place] unsure she tripped on something fell down to the left side. She states she does not believe she hit her head and she denies any loss conscious. Admits to a mild headache. Patient does admit to increased pain to the left knee, left hip and left shoulder. She states is worse with movements. She denies any other complaints or symptoms. Patient denies any recent fever, chills, shortness of breath, chest pain, back pain, abdominal pain, nausea or vomiting, numbness or tingling, dysuria or hematuria, constipation or diarrhea, visual changes, or any other complaints. - Related Data Home Medications Medication Instructions Recorded Confirmed Ergocalciferol [Vitamin D2 50,000 unit PO ALLEN 04/12/17 06/12/17 (DRISDOL)] Ferrous Sulfate [Iron] 325 mg PO TID 04/12/17 06/12/17 Sertraline HCl [Zoloft] 12.5 mg PO HS PRN 04/12/17 06/12/17 Bimatoprost [Lumigan .01% Ophth 1 drop BOTH EYES HS 06/03/17 06/12/17 Soln] Diclofenac Sodium Gel [Voltaren 2 gm TOPICAL TID PRN 06/03/17 06/12/17 Gel] Allergies Allergy/AdvReac Type Severity Reaction Status Date / Time coconut oil Allergy Unknown Verified 06/12/17 19:38 Review of Systems ROS Statement: Those systems with pertinent positive or pertinent negative responses have been documented in the HPI. ROS Other: All systems not noted in ROS Statement are negative. Past Medical History Past Medical History: CVA/TIA, Dementia, Eye Disorder, Hypertension, Osteoarthritis (OA), Vascular Disorder Additional Past Medical History / Comment(s): pelvic fracture right side, arthritis bilateral hands and feet, AAA-small, glaucoma R eye, TIA in 2009, diverticular dx/benign polyps History of Any Multi-Drug Resistant Organisms: None Reported Past Surgical History: Appendectomy, Cholecystectomy, Joint Replacement, Tonsillectomy Additional Past Surgical History / Comment(s): left total knee surgery, colonoscopy/polypectomy, bilateral cataract removal, surgery for glaucoma. Past Anesthesia/Blood Transfusion Reactions: No Reported Reaction, Motion Sickness Past Psychological History: Anxiety Smoking Status: Never smoker Past Alcohol Use History: None Reported Past Drug Use History: None Reported - Past Family History Father Family Medical History: CVA/TIA Additional Family Medical History / Comment(s): Father of a CVA at the age of 65yrs. Mother Family Medical History: Dementia, Eye Disorder Additional Family Medical History / Comment(s): Mother at the age of 96yrs. She was healthy until age 90 when she went blind and had dementia. General Exam - General Exam Comments Initial Comments: General: The patient is awake and alert, in no distress, and does not appear acutely ill. Eye: Pupils are equal, round and reactive to light, extra-ocular movements are intact. No nystagmus. There is normal conjunctiva bilaterally. No signs of icterus. Ears, nose, mouth and throat: There are moist mucous membranes and no oral lesions. Neck: The neck is supple, there is no tenderness or JVD. Cardiovascular: There is a regular rate and rhythm. No murmur, rub or gallop is appreciated. Respiratory: Lungs are clear to auscultation, respirations are non-labored, breath sounds are equal. No wheezes, stridor, rales, or rhonchi. Gastrointestinal: Soft, non-distended, non-tender abdomen without masses or organomegaly noted. There is no rebound or guarding present. No CVA tenderness. Bowel sounds are unremarkable. Musculoskeletal: Normal appearance of left shoulder obvious deformity. No tenderness in cervical, thoracic, lumbar spine. Patient does have tenderness to the left hip laterally. Patient does have some shortening or rotation to the left leg. Subsequent tenderness over the left knee. Sensation intact. Pulses equal bilaterally 2+. Neurological: A&O x 3. CN II-XII intact, There are no obvious motor or sensory deficits. Coordination appears grossly intact. Speech is normal. Skin: Skin is warm and dry and no rashes or lesions are noted. Psychiatric: Cooperative, appropriate mood & affect, normal judgment. Limitations: no limitations Course Vital Signs 06/12/17 19:38 Temperature 97.8 F Pulse Rate 62 Respiratory 18 Rate Blood Pressure 155/77 O2 Sat by Pulse 97 Oximetry EKG Findings - EKG Comments: EKG Findings:: EKG performed at 2057: Shows sinus rhythm with first-degree AV block with PVCs. Left axis deviation. MI interval 226. QRS 90. QT/QTc is 404 /483. No acute ST changes. Medical Decision Making - Medical Decision Making Patient's x-ray of the left hip does show a intertrochanteric fracture. Patient 's CT of the head and neck shows no acute changes. X-rays of the left shoulder , left knee are negative for any acute abnormality. Results were discussed with the patient. Patient's pain controlled with pain medicine here the emergency room. IV placed and blood work pending at this time. Patient will be admitted. Patient family aware the plan states understanding. Disposition Clinical Impression: Hip fracture, left Disposition: ADMITTED IP TO THIS [facility] Condition: Stable Time of Disposition: 20:53
--- NOTE | 2017-06-12 20:37 | XR ---
EXAMINATION TYPE: XR Hip LT and AP Pelvis DATE OF EXAM: 06/12/2017 COMPARISON: NONE HISTORY: Left hip pain after falling TECHNIQUE: A single AP view of the pelvis is obtained. Two views of the left hip are obtained. FINDINGS: There is comminuted intertrochanteric fracture of the left femur. There is separation of th e fragments up to 1.5 cm. There is no dislocation. There is deformity of the right inferior and super ior pubic rami consistent with old fractures. IMPRESSION: Acute intertrochanteric comminuted fracture left femur. Old right pubic rami fractures.
--- NOTE | 2017-06-12 20:38 | XR ---
EXAMINATION TYPE: XR shoulder complete LT DATE OF EXAM: 06/12/2017 COMPARISON: NONE HISTORY: Pain after falling TECHNIQUE: 3 views FINDINGS: There is calcification at the greater tuberosity of the humerus. I see no fracture nor disl ocation. The glenohumeral joint is anatomic. IMPRESSION: Calcific tendinitis. No fracture seen.
--- NOTE | 2017-06-12 20:39 | XR ---
EXAMINATION TYPE: XR knee limited LT DATE OF EXAM: 06/12/2017 COMPARISON: NONE HISTORY: Knee pain TECHNIQUE: 2 views FINDINGS: There is a left knee prosthesis. I see no fracture nor dislocation. IMPRESSION: No acute abnormality of the left knee.
[2017-06-12] MEDS ORDERED: SODIUM CHLORIDE 0.9% 1,000 ML IV STA (20:40)
[2017-06-12] MEDS ORDERED: ONDANSETRON 4 MG/2 ML VIAL IVP STA (20:41)
[2017-06-12] MEDS ORDERED: MORPHINE SULFATE 4 MG/ML SYRINGE IV STA (20:41)
--- NOTE | 2017-06-12 20:43 | CT ---
EXAMINATION TYPE: CT brain brendan [place] DATE OF EXAM: 06/12/2017 COMPARISON: 12/04/2015 HISTORY: Fall injury today. CT DLP: 1872.1 mGycm Automated exposure control for dose reduction was used. TECHNIQUE: CT scan of the head and cervical spine are performed without contrast. FINDINGS: There is cerebral cortical atrophy. There is patchy hypodensity in the periventricular wh ite matter. There is no mass effect nor midline shift. There is no evidence of intracranial hemorrhag e. The calvarium is intact. The cervical vertebra fairly normal alignment. There is calcification in the transverse ligament at t he C1 level. There is mild multilevel cervical facet arthropathy. There is osteopenia. I see no fract ure. The skull base is intact. There is mild degenerative disc space narrowing throughout the cervica l spine. IMPRESSION: Cerebral atrophy and chronic small vessel ischemia. No acute intracranial abnormality. No change comp ared to old exam. Mild degenerative changes in the cervical spine. No fracture.
[2017-06-12] MEDS ORDERED: NALOXONE 0.4 MG/ML 1 ML VIAL IV PRN (21:01)
[2017-06-12 21:42] LABS: Appearance,Urine Clear (Clear); Bacteria,Urine Rare /hpf; Bilirubin,Urine Negative (Negative); Glucose,Urine (UA) Negative (Negative); Ketones,Urine Negative (Negative); Leukocyte Esterase,Urine Moderate (Negative); Mucus,Urine Rare /hpf; Nitrite,Urine Negative (Negative); PH, Urine 5.5 (5.0-8.0); Particle Count 1947; Protein,Urine Negative (Negative); RBC,Urine 1 /hpf (0-5); Specific Gravity,Urine 1.014 (1.001-1.035); Squamous Epithelial Cell,Urine <1 /hpf (0-4); UA Billing (MACRO vs. MICRO) MICRO; Urobilinogen,Urine <2.0 mg/dL (<2.0); WBC,Urine 1 /hpf (0-5)
[2017-06-12 22:27] LABS: Anisocytosis Moderate; Basophils # (A) 0.1 k/uL (0-0.2); Basophils % (A) 0 %; CH 26.8; CHCM 30.4; Eosinophils # (A) 0.2 k/uL (0-0.7); Eosinophils % (A) 2 %; HCT 31.5 % (34.0-46.0); HDW 2.42; Hypochromasia Moderate; Luc # (Auto) 0.14; Luc % (Auto) 1; Lymphocytes % (A) 10 %; MCH 26.2 pg (25.0-35.0); MCHC 29.6 g/dL (31.0-37.0); MCV 88.6 fL (80.0-100.0); Monocytes # (A) 0.5 k/uL (0-1.0); Monocytes % (A) 5 %; Neutrophils # (A) 8.8 k/uL (1.3-7.7); Neutrophils % (A) 83 %; RBC 3.56 m/uL (3.80-5.40); RDW 20.2 % (11.5-15.5); WBC 10.6 k/uL (3.8-10.6); WBC (Perox) 10.83
[2017-06-12 22:28] LABS: HGB 9.3 gm/dL (11.4-16.0)
[2017-06-12 22:37] LABS: Calcium 8.6 mg/dL (8.4-10.2); INR 1.1 (<1.2); Partial Thromboplastin Time 22.2 sec (22.0-30.0); Prothrombin Time 10.8 sec (9.0-12.0); Total Bilirubin 0.3 mg/dL (0.2-1.3); Total Protein 5.7 g/dL (6.3-8.2)
[2017-06-12 22:57] VITALS: BMI 24.4
[2017-06-13 07:30] LABS: Anisocytosis Slight; Basophils % (A) 0 %; CH 25.7; CHCM 29.9; Eosinophils % (A) 0 %; HCT 27.3 % (34.0-46.0); HDW 2.38; HGB 8.4 gm/dL (11.4-16.0); Hypochromasia Marked; Luc # (Auto) 0.13; Luc % (Auto) 2; Lymphocytes # (A) 0.8 k/uL (1.0-4.8); Lymphocytes % (A) 9 %; MCH 26.6 pg (25.0-35.0); MCHC 30.8 g/dL (31.0-37.0); MCV 86.2 fL (80.0-100.0); Mean Platelet Volume 7.4; Monocytes # (A) 0.4 k/uL (0-1.0); Monocytes % (A) 5 %; Neutrophils # (A) 7.3 k/uL (1.3-7.7); Neutrophils % (A) 84 %; RBC 3.17 m/uL (3.80-5.40); RDW 19.4 % (11.5-15.5); WBC 8.7 k/uL (3.8-10.6); WBC (Perox) 8.94
[2017-06-13 07:34] LABS: ALT 24 U/L (9-52); AST 19 U/L (14-36); Alkaline Phosphatase 56 U/L (38-126); Anion Gap 6 mmol/L; Blood Urea Nitrogen 20 mg/dL (7-17); Calcium 8.2 mg/dL (8.4-10.2); Carbon Dioxide 22 mmol/L (22-30); Chloride 108 mmol/L (98-107); Glucose 109 mg/dL (74-99); Non-African American GFR(MDRD) >60 (>60 ml/min/1.73 sqM); Potassium 4.2 mmol/L (3.5-5.1); Sodium 136 mmol/L (137-145); Total Bilirubin 0.4 mg/dL (0.2-1.3); Total Protein 5.3 g/dL (6.3-8.2)
--- NOTE | 2017-06-13 08:58 | P.HPOR ---
History of Present Illness H&P Date: 06/13/17 Chief Complaint: Left hip Fracture This is an 87-year-old female who was admitted for left hip fracture after a fall. Patient states she was walking out of her kitchen yesterday when she tripped and fell onto the cement onto her left side. Patient presented to the ER for evaluation and was found to have a left intertrochanteric hip fracture. Patient is admitted to orthopedics for surgical treatment. Patient complains of pain to the left arm and left hip. Patient states pain in the left arm is localized to her shoulder and is painful with any movement. Patient denies any elbow, wrist or hand pain. Patient denies any numbness, weakness or tingling. Review of Systems See HPI. Past Medical History Past Medical History: CVA/TIA, Dementia, Eye Disorder, Hypertension, Osteoarthritis (OA), Vascular Disorder Additional Past Medical History / Comment(s): pelvic fracture right side, arthritis bilateral hands and feet, AAA-small, glaucoma R eye, TIA in 2009, diverticular dx/benign polyps History of Any Multi-Drug Resistant Organisms: None Reported Past Surgical History: Appendectomy, Cholecystectomy, Joint Replacement, Tonsillectomy Additional Past Surgical History / Comment(s): left total knee surgery, colonoscopy/polypectomy, bilateral cataract removal, surgery for glaucoma. Past Anesthesia/Blood Transfusion Reactions: No Reported Reaction, Motion Sickness Past Psychological History: Anxiety Additional Psychological History / Comment(s): Pt states she resides alone. She uses a cane and has a walker when needed to use. She drives minimally. She has very helpful adult children. She has no home care. Smoking Status: Never smoker Past Alcohol Use History: None Reported Past Drug Use History: None Reported - Past Family History Father Family Medical History: CVA/TIA Additional Family Medical History / Comment(s): Father of a CVA at the age of 65yrs. Mother Family Medical History: Dementia, Eye Disorder Additional Family Medical History / Comment(s): Mother at the age of 96yrs. She was healthy until age 90 when she went blind and had dementia. Medications and Allergies Home Medications Medication Instructions Recorded Confirmed Type Ergocalciferol [Vitamin D2 50,000 unit PO ALLEN 04/12/17 06/12/17 History (DRISDOL)] Ferrous Sulfate [Iron] 325 mg PO TID 04/12/17 06/12/17 History Sertraline HCl [Zoloft] 12.5 mg PO HS PRN 04/12/17 06/12/17 History Bimatoprost [Lumigan .01% Ophth 1 drop BOTH EYES HS 06/03/17 06/12/17 History Soln] Diclofenac Sodium Gel [Voltaren 2 gm TOPICAL TID PRN 06/03/17 06/12/17 History Gel] Allergies Allergy/AdvReac Type Severity Reaction Status Date / Time coconut oil Allergy Unknown Verified 06/12/17 19:38 Physical Examination Patient is in no acute distress and is alert and oriented 3. On exam of the left lower extremity there is tenderness to palpation over the left hip. Left lower extremity is shortened and externally rotated. A soft and nontender. Dorsalis pedis pulses 2+. On exam of the left upper extremity there is mild tenderness over the anterior lateral aspect of left shoulder. There is no tenderness to the elbow, forearm, wrist or hand. Patient has limited active range of motion due to pain with movement of the left shoulder. Limited passive range of motion as well due to pain. Radial pulse 2+ bilaterally. No tenderness of the right upper extremity , right lower extremity, neck or back. Results X-rays of the left hip and pelvis are reviewed showing left intertrochanteric femur fracture. X-rays of the left shoulder are reviewed showing no fracture or dislocation. Arthritic changes present. X-rays of the left knee are reviewed and no fracture dislocation. Knee replacement is in good alignment. - Labs Labs: Abnormal Lab Results - Last 24 Hours (Table) 06/12/17 06/12/17 06/12/17 Range/Units 21:15 21:55 21:55 RBC 3.56 L (3.80-5.40) m/uL Hgb 9.3 L D (11.4-16.0) gm/dL Hct 31.5 L (34.0-46.0) % MCHC 29.6 L (31.0-37.0) g/dL RDW 20.2 H (11.5-15.5) % Neutrophils # 8.8 H (1.3-7.7) k/uL Lymphocytes # (1.0-4.8) k/uL Sodium (137-145) mmol/L Chloride (98-107) mmol/L BUN 25 H (7-17) mg/dL Creatinine 1.06 H (0.52-1.04) mg/dL Glucose (74-99) mg/dL Calcium (8.4-10.2) mg/dL Total Protein 5.7 L (6.3-8.2) g/dL Albumin 3.4 L (3.5-5.0) g/dL Ur Leukocyte Esterase Moderate H (Negative) Urine Bacteria Rare H (None) /hpf Urine Mucus Rare H (None) /hpf 06/13/17 06/13/17 Range/Units 06:30 06:30 RBC 3.17 L (3.80-5.40) m/uL Hgb 8.4 L (11.4-16.0) gm/dL Hct 27.3 L (34.0-46.0) % MCHC 30.8 L (31.0-37.0) g/dL RDW 19.4 H (11.5-15.5) % Neutrophils # (1.3-7.7) k/uL Lymphocytes # 0.8 L (1.0-4.8) k/uL Sodium 136 L (137-145) mmol/L Chloride 108 H (98-107) mmol/L BUN 20 H (7-17) mg/dL Creatinine (0.52-1.04) mg/dL Glucose 109 H (74-99) mg/dL Calcium 8.2 L (8.4-10.2) mg/dL Total Protein 5.3 L (6.3-8.2) g/dL Albumin 3.1 L (3.5-5.0) g/dL Ur Leukocyte Esterase (Negative) Urine Bacteria (None) /hpf Urine Mucus (None) /hpf H & H 06/12/17 06/13/17 Range/Units 21:55 06:30 Hgb 9.3 L D 8.4 L (11.4-16.0) gm/dL Hct 31.5 L 27.3 L (34.0-46.0) % Coagulation 06/12/17 Range/Units 21:55 INR 1.1 (<1.2) Result Diagrams: 06/13/17 06:30 06/13/17 06:30 Assessment and Plan (1) Intertrochanteric fracture of left hip Status: Acute (2) Left shoulder pain Status: Acute (3) Hip fracture, left Status: Acute (4) Fall Status: Acute Plan: #1. Nonweightbearing to the left lower extremity #2. NPO #3. Patient is scheduled for IT nail in the OR at 11:30 today. Patient is medically cleared.
[2017-06-13] MEDS: MORPHINE SULFATE 2 MG/ML SYRINGE IV PRN (10:41)
[2017-06-13] MEDS ORDERED: IV FLUID CONTINUATION 1,000 ML IV ONE (10:57)
--- NOTE | 2017-06-13 11:31 | P.PN ---
Progress Note - Text Per Dr. Deutsch, patient is medically cleared for surgery
[2017-06-13] MEDS ORDERED: ceFAZolin 2 GM in SODIUM CHLORIDE 0.9% 100 ML IVPB ONE (11:32)
[2017-06-13] MEDS ORDERED: KETAMINE 10 MG/ML 20 ML VIAL ONE (11:37)
[2017-06-13] MEDS ORDERED: fentaNYL (PF) 50 MCG/ML 2 ML AMP ONE (11:37)
[2017-06-13] MEDS ORDERED: PHENYLEPHRINE-0.9% NACL SYG 1 MG/10 ML SYRINGE ONE (11:37)
[2017-06-13] MEDS ORDERED: MIDAZOLAM 2 MG/2 ML VIAL ONE (11:37)
[2017-06-13] MEDS ORDERED: PROPOFOL 10 MG/ML 20 ML VIAL IV ONE (11:37)
[2017-06-13] MEDS ORDERED: LACTATED RINGERS 1,000 ML IV ONE (11:47)
[2017-06-13] MEDS ORDERED: ceFAZolin 1,000 MG in SODIUM CHLORIDE 0.9% 1,000 ML IRRIGATION ONE (12:20)
[2017-06-13] MEDS ORDERED: HYDROmorphone 1 MG/ML 1 ML SYRINGE IVP PRN ×3 (13:03)
[2017-06-13] MEDS ORDERED: NALOXONE 0.4 MG/ML 1 ML VIAL IV PRN (13:03)
[2017-06-13] MEDS ORDERED: DIAZEPAM 5 MG TAB PO PRN ×2 (13:03)
[2017-06-13] MEDS ORDERED: MAGNESIUM HYDROXIDE 2,400 MG/10 ML CUP PO PRN (13:03)
[2017-06-13] MEDS ORDERED: ONDANSETRON 4 MG/2 ML VIAL IVP PRN (13:03)
[2017-06-13] MEDS ORDERED: hydrOXYzine PAMOATE 25 MG CAP PO PRN (13:03)
--- NOTE | 2017-06-13 13:13 | P.OP ---
Date of Procedure: 06/13/17 Preoperative Diagnosis: Closed displaced 4 part intratrochanteric fracture left hip Postoperative Diagnosis: Closed displaced 4 part intertrochanteric fracture left hip Procedure(s) Performed: Close reduction and intramedullary hip screw fixation left hip Implants: [employer] intertan nail 125, 11.5 mm x 18 cm. [employer] Intertan integrated interlocking lag screw, 95 mm lag screw, 90 mm compression screw. [employer] L-P screw, 5.0 mm x 32.5 mm. Anesthesia: spinal Surgeon: Justyn Bowman Employee Benefits Manager #1: Tracey Scott Estimated Blood Loss (ml): 200 Pathology: none sent Condition: stable Disposition: PACU Indications for Procedure: This is an 87-year-old female that slipped and fell at home yesterday. X-rays demonstrate a 4 part comminuted and displaced intertrochanteric fracture of her left hip. After discussing the surgical and nonsurgical treatment options with her and her son at length, I recommended a close reduction and intramedullary hip screw fixation of her left hip. Informed consent was obtained. Operative Findings: The operative findings are consistent with a four-part displaced intertrochanteric fracture of the left hip. Description of Procedure: The patient was seen in the preoperative area, consent was reviewed, and the operative site was marked with a skin marker. The patient was brought to the operating room and placed on the operating room table. Anesthesia was administered by the anesthesia department. 2 g of Ancef were administered intravenously. The patient was placed supine on the fracture table with the fractured extremity in traction boot. His other extremity was placed in a well leg bustamante and his bony prominences were padded. A universal timeout was then performed which confirmed the patient's name, surgical site, ALLERGIES, and consent. Fracture reduction was performed with traction and adduction maneuver which was confirmed with fluoroscopy. After reduction was performed, his extremity was then prepped and draped in the usual sterile fashion. Utilizing fluoroscopy to identify the tip of the greater trochanter, a 3 cm incision was made just proximal to the greater trochanter. Utilizing a curved awl, the starting hole was created at the tip of the greater trochanter and centralized in the AP plane. These locations were confirmed by fluoroscopy. Guidewire was then inserted down the medullary canal. Sequentially reaming of the femur was performed to 13 mm distally and 17 mm proximally. After reaming, appropriate size nail was inserted over the guidewire. The nail was inserted to the appropriate depth and the guidewire was removed. The lag screw targeting device was placed in the jig and a small skin incision was made and the targeting guide was placed down to bone. Utilizing the distally threaded guidewire, the guidewire was placed in the appropriate position in the femoral head, both anterior, posterior and mediolateral. Next, the drill for the second screw was then placed through the guide and drilled to the appropriate depth. The guidewire was measured and the appropriate depth was then reamed. The final size screw was placed to the appropriate depth. Traction was released and the fracture site was compressed with the aid of the second screw. The proximal drill guide was then removed and the distal drill guide was then inserted in the jig. Skin incision was made down to bone and the distal drill guide was then placed. Distal hole was then drilled and measured to the appropriate depth. Distal screw was then placed. The entire jig was then removed and final fluoroscopic x-rays were obtained. The wounds were then irrigated copiously with saline solution. Fascia was closed with 0-Vicryl. Subcutaneous tissues were closed with 2-0 Vicryl and the skin was closed with tosha. Sterile dressings were applied. The patient was transported to the recovery room in stable condition. The anesthetic assistant, PERNELL Hanley was required due the complexity of the surgery and the need for skilled surgical technologist.
--- NOTE | 2017-06-13 13:16 | FL ---
EXAMINATION TYPE: FL guidance operating room, XR Hip Complete LT DATE OF EXAM: 06/13/2017 CLINICAL HISTORY: Left hip fracture. TECHNIQUE: Fluoroscopy. Intraoperative limited views left hip. COMPARISON: Pelvic and left x-ray from yesterday. FINDINGS: Fluoroscopic guidance was provided during procedure performed by Dr. Bowman. A total of 84 seconds of fluoroscopic time was utilized during the procedure and 2 spot images are acquired. Intraoperative images acquired show placement of intramedullary luciano with distal transverse fixating s crew and larger proximal femoral neck fixating screws through intertrochanteric fracture left proxima l femur. Satisfactory alignment is seen on intraoperative images provided. IMPRESSION: As Above.
[2017-06-13 14:47] LABS: Anisocytosis Slight; Basophils % (A) 0 %; CH 25.3; CHCM 28.4; Eosinophils # (A) 0.1 k/uL (0-0.7); Eosinophils % (A) 1 %; HCT 30.5 % (34.0-46.0); HGB 9.2 gm/dL (11.4-16.0); Hypochromasia Marked; Luc # (Auto) 0.26; Luc % (Auto) 2; Lymphocytes # (A) 1.4 k/uL (1.0-4.8); Lymphocytes % (A) 11 %; MCHC 30.2 g/dL (31.0-37.0); MCV 89.5 fL (80.0-100.0); Mean Platelet Volume 7.6; Monocytes % (A) 8 %; Neutrophils # (A) 9.8 k/uL (1.3-7.7); Neutrophils % (A) 78 %; RBC 3.41 m/uL (3.80-5.40); WBC 12.7 k/uL (3.8-10.6); WBC (Perox) 13.62
--- NOTE | 2017-06-13 15:59 | XR ---
EXAMINATION TYPE: XR wrist complete LT DATE OF EXAM: 06/13/2017 CLINICAL HISTORY: Left wrist pain and bruising after fall injury yesterday. TECHNIQUE: Frontal, lateral, scaphoid, and oblique images of the left wrist are obtained. COMPARISON: None FINDINGS: Osseous structures are demineralized which is noted to lower radiographic sensitivity for evaluation of fine anatomic detail. Seen best on lateral view there is oblique intra-articular fractu re through the dorsal aspect of the distal radial meta-epiphysis with lucency and cortical disruption . There is radiocarpal joint space loss. Distal ulna is intact. There is marked ossific re-formation with subchondral cystic change at base of first metacarpal. Calcification along the scapholunate and lunotriquetral ligaments felt present. Peripheral IV is seen along dorsum of hand. There appears to b e advanced degenerative change with possible subluxation at fifth PIP joint partially imaged. IMPRESSION: There is acute oblique nondisplaced intra-articular fracture through distal radial meta- epiphysis. (Initial encounter closed type post traumatic fracture)
[2017-06-13] MEDS: HYDROcodone/APAP 5-325MG 1 EACH TAB PO PRN (16:51)
[2017-06-13] MEDS: SENNOSIDES-DOCUSATE SODIUM 1 EACH TAB PO SCH (19:11)
[2017-06-13] MEDS: ceFAZolin 2 GM in SODIUM CHLORIDE 0.9% 100 ML IVPB SCH (19:11)
[2017-06-14] MEDS: MORPHINE SULFATE 2 MG/ML SYRINGE IV PRN (01:19)
[2017-06-14] MEDS: HYDROcodone/APAP 5-325MG 1 EACH TAB PO PRN ×3 (01:26→21:34)
[2017-06-14] MEDS: ceFAZolin 2 GM in SODIUM CHLORIDE 0.9% 100 ML IVPB SCH (03:04)
[2017-06-14 07:01] LABS: INR 1.1 (<1.2); Prothrombin Time 11.4 sec (9.0-12.0)
--- NOTE | 2017-06-14 08:43 | P.PN ---
Subjective Principal diagnosis: Left hip fracture. Status post closed reduction and intramedullary hip screw fixation of the left hip This is an 87-year-old female who is status post closed reduction and intramedullary hip screw fixation of the left hip. Patient states her pain is well controlled today. Patient has not been up with physical therapy yet. Patient states that her left shoulder pain has completely resolved. Patient states she does have some pain in the left wrist with movement. Patient denies any numbness, weakness or tingling, fever/chills. Objective - Vital Signs Vital signs: Vital Signs Temp 98.4 F 06/14/17 07:38 Pulse 99 06/14/17 07:38 Resp 15 06/14/17 07:38 BP 108/65 06/14/17 07:38 Pulse Ox 98 06/14/17 07:38 Intake & Output 06/13/17 06/14/17 06/14/17 18:59 06:59 18:59 Intake Total 1251 687.5 Output Total 480 100 Balance 771 587.5 Intake: IV 1251 187.5 Sodium Chloride 0.9% 1, 150 187.5 000 ml @ 75 mls/hr IV . [id number] [facility] Rx#:[id number] Intake, IV Titration 100 Amount ceFAZolin 2 gm In Sodium 100 Chloride 0.9% 100 ml @ 100 mls/hr IVPB Q8H [facility] [place] Rx#:[id number] Oral 400 Output: Urine 280 100 Estimated Blood Loss 200 Other: Voiding Method Indwelling Catheter Indwelling Catheter Indwelling Catheter - Exam On exam of the left lower extremity incision is clean, dry and intact. There is mild drainage. There is mild soft tissue swelling. Compartments are soft. No Tenderness or swelling. Patient has full foot and ankle motion. Neurovascular status is intact. I examine the left upper extremity there is no tenderness palpation of the left shoulder. There is tenderness to palpation over the dorsal aspect of the left wrist. There is ecchymosis and mild swelling today. Patient has limited range of motion of the left wrist due to pain and swelling. No tenderness to palpation of the left hand. Radial pulses 2+. Neurovascular status is intact. - Labs CBC & Chem 7: 06/13/17 14:21 06/13/17 06:30 Labs: Abnormal Lab Results - Last 24 Hours (Table) 06/13/17 Range/Units 14:21 WBC 12.7 H (3.8-10.6) k/uL RBC 3.41 L (3.80-5.40) m/uL Hgb 9.2 L (11.4-16.0) gm/dL Hct 30.5 L (34.0-46.0) % MCHC 30.2 L (31.0-37.0) g/dL RDW 19.0 H (11.5-15.5) % Neutrophils # 9.8 H (1.3-7.7) k/uL Assessment and Plan (1) Intertrochanteric fracture of left hip Status: Acute (2) Left shoulder pain Status: Acute (3) Hip fracture, left Status: Acute (4) Fall Status: Acute (5) Wrist fracture, left Status: Acute (6) Status post hip surgery Status: Acute Plan: #1. Toe-touch weightbearing to the left lower extremity with a walker. #2. X-rays of the left wrist show an oblique nondisplaced intra-articular fracture of the distal radius. Schapholunate dissociation is noted on x-ray. Likely chronic. Patient will be placed in a cock-up wrist splint. #3. Patient to work with physical therapy. #4. We'll continue to follow the patient closely. Anticipate discharge to rehab in the next 1-2 days.
[2017-06-14] MEDS ORDERED: SERTRALINE 25 MG TAB PO PRN (09:50)
[2017-06-14] MEDS ORDERED: DICLOFENAC SODIUM GEL 100 GM TUBE TOPICAL PRN (09:50)
[2017-06-14] MEDS ORDERED: FERROUS SULFATE 325 MG TAB PO SCH (16:00)
[2017-06-14] MEDS: FERROUS SULFATE 325 MG TAB PO SCH (17:40)
[2017-06-14] MEDS ORDERED: WARFARIN 5 MG TAB PO ONE (18:00)
--- NOTE | 2017-06-14 18:00 | CONS ---
CONSULTATION Date of Consultation: DATE OF SERVICE: 06/13/17. SUBJECTIVE: White female, 5 foot 5 inches, 66 kg. BMI is 24, 87-year-old, white female, with left hip fracture. Scheduled for surgery today. EKG shows nonspecific ST changes. At home she is takes Zoloft, iron, vitamin D, Lumigan, Voltaren gel. She has some arthritis. No cardiac events. No cardiovascular disease. REVIEW OF SYSTEMS: 14-point review of system negative except for tenderness and pain over the left leg where the fracture is. PHYSICAL EXAM: VITAL SIGNS: Stable and afebrile. CARDIOVASCULAR: S1, S2. LUNGS: Clear. GI: Soft . Hematological: Negative Homans. Psych: Fair mood and affect. Neurological: Alert and oriented x3. Musculoskeletal: Tenderness to palpation over the left hip. ASSESSMENT: 1. Status post left hip fracture preop. 2. History of mild maybe depression. 3. Anemia. 4. Vitamin D deficiency. 5. Osteoarthritis. Cleared from surgery at this time. MMODL / IJN: [id number] /
[2017-06-14] MEDS: SENNOSIDES-DOCUSATE SODIUM 1 EACH TAB PO SCH (21:37)
[2017-06-14] MEDS: LATANOPROST 0.005% OPHTH DROPS 2.5 ML BTL BOTH EYES SCH (21:42)
[2017-06-15] MEDS: HYDROcodone/APAP 5-325MG 1 EACH TAB PO PRN ×4 (06:07→22:45)
[2017-06-15 07:31] LABS: Anisocytosis Moderate; Basophils % (A) 0 %; CH 27.2; CHCM 31.3; Eosinophils # (A) 0.1 k/uL (0-0.7); Eosinophils % (A) 1 %; HDW 2.45; Luc # (Auto) 0.17; Luc % (Auto) 2; Lymphocytes # (A) 0.8 k/uL (1.0-4.8); Lymphocytes % (A) 8 %; MCH 26.8 pg (25.0-35.0); MCHC 30.7 g/dL (31.0-37.0); MCV 87.2 fL (80.0-100.0); Mean Platelet Volume 8.4; Monocytes # (A) 0.7 k/uL (0-1.0); Monocytes % (A) 7 %; Neutrophils # (A) 8.6 k/uL (1.3-7.7); Neutrophils % (A) 83 %; RBC 2.05 m/uL (3.80-5.40); RDW 20.3 % (11.5-15.5); WBC 10.3 k/uL (3.8-10.6); WBC (Perox) 10.78
[2017-06-15 07:41] LABS: HCT 17.9 % (34.0-46.0); HGB 5.5 gm/dL (11.4-16.0)
[2017-06-15] MEDS: FERROUS SULFATE 325 MG TAB PO SCH ×2 (08:19→17:51)
[2017-06-15] MEDS: SODIUM CHLORIDE 0.9% 1,000 ML IV SCH ×2 (08:49→16:56)
--- NOTE | 2017-06-15 09:09 | P.PN ---
Subjective Principal diagnosis: Left hip fracture. Status post closed reduction and intramedullary hip screw fixation of the left hip This is an 87-year-old female who is status post closed reduction and intramedullary hip screw fixation of the left hip. This is postoperative day # 2. Patient states her pain is well controlled today in the hip. Patient again complains of left shoulder pain today. Patient states she cannot lift it on her own. Patient received wrist splint and is tolerating this well. Patient denies any numbness, weakness or tingling, fever/chills. Objective - Vital Signs Vital signs: Vital Signs Temp 98.2 F 06/15/17 07:26 Pulse 106 H 06/15/17 07:26 Resp 16 06/15/17 07:26 BP 95/50 06/15/17 07:26 Pulse Ox 97 06/15/17 07:26 Intake & Output 06/14/17 06/15/17 06/15/17 18:59 06:59 18:59 Intake Total 100 375 Output Total 425 0 Balance -325 375 Weight 66.67 kg Intake: Intake, IV Titration 375 Amount IV Fluid Continuation 1, 375 000 ml As IV .[facility] [facility] Rx#:[id number] Oral 100 0 Output: Urine 425 0 Uretheral (Wadsworth) 425 Other: Voiding Method Indwelling Catheter Diaper # Voids 1 - Exam On exam patient is in no acute distress. Patient is alert and answered questions appropriately. On exam of the left lower extremity incision is clean , dry and intact. There is mild drainage. There is mild soft tissue swelling. Compartments are soft. Patient has full foot and ankle motion. Calf is soft and nontender. Neurovascular status is intact. Dorsalis pedis pulses 2+. On exam of the left upper extremity there is no tenderness to palpation of the left shoulder. Patient has passive range of motion of the left shoulder to approximately 160 degrees. Patient is unable to actively flex the left shoulder due to pain. There is no swelling, erythema or ecchymosis of the left shoulder. Splint is intact to the left wrist. There is tenderness to palpation over the dorsal aspect of the left wrist. There is mild swelling and ecchymosis to the left wrist today. Compartments are soft. Patient has limited range of motion of the left wrist due to pain and swelling. No tenderness to palpation of the left hand. Patient has full range of motion of the left hand. Radial pulses 2+. Sensation intact. Neurovascular status is intact. - Labs CBC & Chem 7: 06/15/17 06:34 06/13/17 06:30 Labs: Abnormal Lab Results - Last 24 Hours (Table) 06/15/17 Range/Units 06:34 RBC 2.05 L (3.80-5.40) m/uL Hgb 5.5 L* D (11.4-16.0) gm/dL Hct 17.9 L* (34.0-46.0) % MCHC 30.7 L (31.0-37.0) g/dL RDW 20.3 H (11.5-15.5) % Neutrophils # 8.6 H (1.3-7.7) k/uL Lymphocytes # 0.8 L (1.0-4.8) k/uL Assessment and Plan (1) Intertrochanteric fracture of left hip Status: Acute (2) Left shoulder pain Status: Acute (3) Hip fracture, left Status: Acute (4) Fall Status: Acute (5) Wrist fracture, left Status: Acute (6) Status post hip surgery Status: Acute Plan: #1. Toe-touch weightbearing to the left lower extremity with a walker. #2. X-rays of the left wrist show an oblique nondisplaced intra-articular fracture of the distal radius. Continue wrist splint, rest, ice and elevation. #3. Hemoglobin is 5.5. Medicine consulted regarding blood transfusion. #3. Patient to work with physical therapy for the hip and left shoulder. #4. We'll continue to follow the patient closely. Anticipate discharge to rehab when medically stable.
[2017-06-15 09:38] LABS: INR 1.6 (<1.2); Prothrombin Time 15.2 sec (9.0-12.0)
--- NOTE | 2017-06-15 17:46 | PN ---
PROGRESS NOTE SUBJECTIVE: An 87-year-old, white female, admitted with status post left hip fracture. Continues on Zoloft for depression, Lumigan for eyedrops and iron. She was asking when her surgery is even though she had surgery yesterday. She has some confusion, otherwise she is happy. Vital signs stable. Afebrile. CARDIOVASCULAR: S1, S2. LUNGS: Clear GI: Soft. MUSCULOSKELETAL: Limited motion of the left hip, otherwise she is up in the chair with assistance. ASSESSMENT: 1. Postop delirium. 2. Depression. 3. Generalized debility. Continue current treatment. Follow up in next 24 to 48 hours. PT and OT and physical therapy ordered at [facility]. MMODL / IJN: [id number] /
[2017-06-15] MEDS ORDERED: WARFARIN 2.5 MG TAB PO ONE (18:00)
[2017-06-15] MEDS: SENNOSIDES-DOCUSATE SODIUM 1 EACH TAB PO SCH (20:36)
[2017-06-15] MEDS: LATANOPROST 0.005% OPHTH DROPS 2.5 ML BTL BOTH EYES SCH (20:36)
[2017-06-16] MEDS: SODIUM CHLORIDE 0.9% 1,000 ML IV SCH ×3 (03:21→17:31)
[2017-06-16 08:29] LABS: Anisocytosis Slight; Basophils % (A) 0 %; CH 27.4; CHCM 31.4; Eosinophils # (A) 0.3 k/uL (0-0.7); Eosinophils % (A) 3 %; HCT 23.5 % (34.0-46.0); HDW 3.75; Hypochromasia Moderate; Luc # (Auto) 0.15; Luc % (Auto) 2; Lymphocytes # (A) 0.7 k/uL (1.0-4.8); Lymphocytes % (A) 8 %; MCH 27.9 pg (25.0-35.0); MCHC 31.9 g/dL (31.0-37.0); MCV 87.7 fL (80.0-100.0); Mean Platelet Volume 7.6; Monocytes # (A) 0.5 k/uL (0-1.0); Monocytes % (A) 6 %; Neutrophils # (A) 7.1 k/uL (1.3-7.7); Neutrophils % (A) 81 %; Poikilocytosis Slight; RBC 2.68 m/uL (3.80-5.40); RDW 18.7 % (11.5-15.5); WBC 8.7 k/uL (3.8-10.6); WBC (Perox) 9.29
[2017-06-16 08:33] LABS: HGB 7.5 gm/dL (11.4-16.0)
--- NOTE | 2017-06-16 08:36 | P.PN ---
Subjective Principal diagnosis: Left hip fracture. Status post closed reduction and intramedullary hip screw fixation of the left hip This is an 87-year-old female who is status post closed reduction and intramedullary hip screw fixation of the left hip. This is postoperative day # 3. Patient states her pain is well controlled today in the hip. Patient has improved range of motion of the left shoulder today. Patient is tolerating the wrist splint well. Patient denies any numbness, weakness or tingling, fever/ chills. Objective - Vital Signs Vital signs: Vital Signs Temp 97.7 F 06/16/17 07:00 Pulse 90 06/16/17 07:00 Resp 17 06/16/17 07:00 BP 136/60 06/16/17 07:00 Pulse Ox 100 06/16/17 07:00 Intake & Output 06/15/17 06/16/17 06/16/17 18:59 06:59 18:59 Intake Total 980 300 Output Total 300 600 Balance 680 -300 Intake: Oral 360 300 Blood Product 620 Rc As-1 Unit 310 [id number] Rc As-1 Unit 310 [id number] Output: Urine 300 600 Other: Voiding Method Bedpan Bedpan # Voids 1 - Exam On exam patient is in no acute distress. Patient is alert and answering questions appropriately. On exam of the left lower extremity incision is clean , dry and intact. There is mild drainage. There is mild soft tissue swelling. Compartments are soft. Patient has full foot and ankle motion. Calf is soft and nontender. Neurovascular status is intact. On exam of the left upper extremity there is no tenderness to palpation of the left shoulder.There is no swelling, erythema or ecchymosis of the left shoulder. Patient has improvement in range of motion of the left shoulder today. Splint is intact to the left wrist. There is tenderness to palpation over the dorsal aspect of the left wrist. There is mild swelling and ecchymosis to the left wrist today. Compartments are soft. Patient has limited range of motion of the left wrist due to pain and swelling. No tenderness to palpation of the left hand. Patient has full range of motion of the left hand. Radial pulses 2+ . Sensation intact. Neurovascular status is intact. - Labs CBC & Chem 7: 06/16/17 08:12 06/13/17 06:30 Labs: Abnormal Lab Results - Last 24 Hours (Table) 06/13/17 06/15/17 Range/Units 10:32 09:16 PT 15.2 H (9.0-12.0) sec INR 1.6 H (<1.2) Crossmatch See Detail Assessment and Plan (1) Intertrochanteric fracture of left hip Status: Acute (2) Left shoulder pain Status: Acute (3) Hip fracture, left Status: Acute (4) Fall Status: Acute (5) Wrist fracture, left Status: Acute (6) Status post hip surgery Status: Acute Plan: #1. Toe-touch weightbearing to the left lower extremity with a walker. #2. X-rays of the left wrist show an oblique nondisplaced intra-articular fracture of the distal radius. Continue wrist splint, rest, ice and elevation. #3. Hemoglobin is 7.5 today. Patient received 2 units of blood yesterday. #3. Continue physical therapy for the hip and left shoulder. #4. We'll continue to follow the patient closely. Anticipate discharge to rehab when medically stable.
[2017-06-16] MEDS: FERROUS SULFATE 325 MG TAB PO SCH ×2 (09:40→17:31)
[2017-06-16 09:51] LABS: INR 1.8 (<1.2)
--- NOTE | 2017-06-16 10:26 | PN ---
PROGRESS NOTE SUBJECTIVE: An 87-year-old, white female, admitted for left hip fracture. Hemoglobin dropped down to 5.5 today. She has had 2 units of blood ordered. She was hypertensive. She was given normal saline at 125 an hour. She feels weak and fatigued with tachycardia and hypotension. Cardiovascular S1, S2. appears to be clear dry and intact. GI: Soft. Hematological: Negative Homans. ASSESSMENT: 1. Left hip fracture. 2. Severe anemia. 3. Chronic medical conditions. 4. Hypertension secondary to severe anemia. 5. Dehydration. 6. Gastrointestinal blood loss secondary to surgery. PLAN: Two units of blood will be given. IV fluids will be given. Monitor electrolytes and hemoglobin. MMODL / IJN: [id number] /
[2017-06-16] MEDS: HYDROcodone/APAP 5-325MG 1 EACH TAB PO PRN ×2 (11:58→20:45)
--- NOTE | 2017-06-16 12:53 | XR ---
EXAMINATION TYPE: XR chest 1V portable DATE OF EXAM: 06/16/2017 CLINICAL HISTORY: Difficulty breathing and fever. TECHNIQUE: Single AP portable upright view of the chest is obtained. COMPARISON: Chest x-ray from June 03, 2017 FINDINGS: There is chronic parenchymal change without suspicious new focal airspace opacity, pleural effusion, or pneumothorax seen bilaterally. Cardiac silhouette size is mildly enlarged with atherosc lerotic and ectatic thoracic aorta. Mass effect on trachea is redemonstrated deviated to right of mid line. Osseous structures are demineralized. IMPRESSION: Chronic changes and mild cardiomegaly without acute pulmonary process.
[2017-06-16 12:55] LABS: ALT 25 U/L (9-52); AST 18 U/L (14-36); Alkaline Phosphatase 49 U/L (38-126); Anion Gap 6 mmol/L; Blood Urea Nitrogen 19 mg/dL (7-17); Calcium 7.7 mg/dL (8.4-10.2); Carbon Dioxide 23 mmol/L (22-30); Chloride 109 mmol/L (98-107); Glucose 82 mg/dL (74-99); Non-African American GFR(MDRD) 58 (>60 ml/min/1.73 sqM); Potassium 3.9 mmol/L (3.5-5.1); Sodium 138 mmol/L (137-145); Total Bilirubin 0.4 mg/dL (0.2-1.3); Total Protein 4.6 g/dL (6.3-8.2)
[2017-06-16] MEDS: ACETAMINOPHEN TAB 325 MG TAB PO PRN (13:31)
[2017-06-16] MEDS ORDERED: WARFARIN 2.5 MG TAB PO ONE (18:00)
--- NOTE | 2017-06-16 19:06 | P.PN ---
Subjective This is a 87-year-old female seen for Dr. Pedro Deutsch in [facility]. Patient apparently sustained a fall and had a intertrochanteric fracture of the left hip patient is postoperative day 1. Patient was noted to have some degree of anemia prior to the surgery patient's hemoglobin today is around 7 g per DL Patient received 2 units of PRBC However another unit of PRBC was also ordered Today during my evaluation patient is rather confused and does not remember her fall Patient did have a febrile reaction during her last transfusion blood was held Temperature at maximum was around 101 Fahrenheit No other symptoms are reported is easily arousable Objective - Vital Signs Vital signs: Vital Signs Temp 99.8 F H 06/16/17 14:55 Pulse 94 06/16/17 15:37 Resp 16 06/16/17 15:37 BP 121/70 06/16/17 14:55 Pulse Ox 97 06/16/17 14:55 Intake & Output 06/15/17 06/16/17 06/16/17 18:59 06:59 18:59 Intake Total 980 300 515 Output Total 300 600 Balance 680 -300 515 Intake: Intake, IV Titration 250 Amount Sodium Chloride 0.9% 1, 250 000 ml @ 125 mls/hr IV . Q8H [facility] Rx#:[id number] Oral 360 300 240 Blood Product 620 25 Rc As-1 Unit 310 [id number] Rc As-1 Unit 310 [id number] Rc As-3 Unit 25 [id number] Output: Urine 300 600 Other: Voiding Method Bedpan Bedpan Bedpan # Voids 1 - Exam Gen. appearance slightly drowsy however is able to answer questions appropriately Neck neck is supple no JVD Heart S1-S2 heard no murmurs appreciated Lungs clear to auscultation bilaterally no rhonchi or wheezing Abdomen soft nontender no organomegaly Left hip tender to palpation appropriate no significant hematoma noted Wadsworth catheter in place Neuro moves all 4 extremities - Labs CBC & Chem 7: 06/16/17 08:12 06/16/17 08:12 Labs: Abnormal Lab Results - Last 24 Hours (Table) 06/13/17 06/16/17 06/16/17 Range/Units 10:32 08:12 08:12 RBC 2.68 L (3.80-5.40) m/uL Hgb 7.5 L D (11.4-16.0) gm/dL Hct 23.5 L (34.0-46.0) % RDW 18.7 H (11.5-15.5) % Lymphocytes # 0.7 L (1.0-4.8) k/uL PT 17.0 H (9.0-12.0) sec INR 1.8 H (<1.2) Chloride (98-107) mmol/L BUN (7-17) mg/dL Calcium (8.4-10.2) mg/dL Total Protein (6.3-8.2) g/dL Albumin (3.5-5.0) g/dL Crossmatch See Detail 06/16/17 06/16/17 Range/Units 08:12 12:10 RBC (3.80-5.40) m/uL Hgb (11.4-16.0) gm/dL Hct (34.0-46.0) % RDW (11.5-15.5) % Lymphocytes # (1.0-4.8) k/uL PT (9.0-12.0) sec INR (<1.2) Chloride 109 H (98-107) mmol/L BUN 19 H (7-17) mg/dL Calcium 7.7 L (8.4-10.2) mg/dL Total Protein 4.6 L (6.3-8.2) g/dL Albumin 2.4 L (3.5-5.0) g/dL Crossmatch See Detail Assessment and Plan Plan: #1 acute blood loss anemia with underlying iron deficiency #2 left hip fracture status post surgical correction #3 acute encephalopathy could be multifactorial including metabolic and toxic #4 history of hypertension #5 depression #6 vitamin D insufficiency Plan Continue ongoing care hold off on transfusion Patient appears to have a febrile transfusion reaction we'll repeat labs in the morning to ensure there is no hemolytic reaction Continue monitoring Judicious use of narcotics
[2017-06-16] MEDS: LATANOPROST 0.005% OPHTH DROPS 2.5 ML BTL BOTH EYES SCH (20:45)
[2017-06-16] MEDS: SENNOSIDES-DOCUSATE SODIUM 1 EACH TAB PO SCH (20:46)
[2017-06-16 21:09] LABS: Amorphous Sediment,Urine Occasional /hpf; Appearance,Urine Clear (Clear); Bacteria,Urine Occasional /hpf; Bilirubin,Urine Negative (Negative); Glucose,Urine (UA) Negative (Negative); Ketones,Urine Negative (Negative); Leukocyte Esterase,Urine Trace (Negative); Mucus,Urine Rare /hpf; Nitrite,Urine Negative (Negative); Particle Count 2090; Protein,Urine 1+ (Negative); RBC,Urine 1 /hpf (0-5); Specific Gravity,Urine 1.016 (1.001-1.035); Squamous Epithelial Cell,Urine 4 /hpf (0-4); UA Billing (MACRO vs. MICRO) MICRO; Urobilinogen,Urine <2.0 mg/dL (<2.0); WBC,Urine 4 /hpf (0-5)
[2017-06-17] MEDS: SODIUM CHLORIDE 0.9% 1,000 ML IV SCH ×2 (06:07→10:55)
[2017-06-17 07:55] LABS: Anisocytosis Slight; Basophils % (A) 0 %; CH 28.4; Eosinophils # (A) 0.4 k/uL (0-0.7); Eosinophils % (A) 5 %; HCT 22.4 % (34.0-46.0); HDW 3.47; HGB 7.2 gm/dL (11.4-16.0); Hypochromasia Slight; Luc # (Auto) 0.16; Luc % (Auto) 2; Lymphocytes # (A) 0.7 k/uL (1.0-4.8); Lymphocytes % (A) 10 %; MCH 28.9 pg (25.0-35.0); MCHC 32.3 g/dL (31.0-37.0); MCV 89.5 fL (80.0-100.0); Mean Platelet Volume 8.1; Monocytes # (A) 0.5 k/uL (0-1.0); Monocytes % (A) 6 %; Neutrophils # (A) 5.8 k/uL (1.3-7.7); Neutrophils % (A) 77 %; Poikilocytosis Slight; RDW 19.3 % (11.5-15.5); WBC 7.6 k/uL (3.8-10.6); WBC (Perox) 7.73
[2017-06-17] MEDS: FERROUS SULFATE 325 MG TAB PO SCH ×2 (07:59→18:47)
[2017-06-17 08:04] LABS: INR 1.7 (<1.2); Prothrombin Time 16.5 sec (9.0-12.0)
[2017-06-17] MEDS: HYDROcodone/APAP 5-325MG 1 EACH TAB PO PRN ×3 (08:07→18:47)
[2017-06-17 08:36] LABS: ALT 25 U/L (9-52); AST 24 U/L (14-36); Alkaline Phosphatase 56 U/L (38-126); Anion Gap 4 mmol/L; Blood Urea Nitrogen 19 mg/dL (7-17); Calcium 7.7 mg/dL (8.4-10.2); Carbon Dioxide 25 mmol/L (22-30); Chloride 109 mmol/L (98-107); Glucose 78 mg/dL (74-99); Non-African American GFR(MDRD) 54 (>60 ml/min/1.73 sqM); Potassium 4.2 mmol/L (3.5-5.1); Sodium 138 mmol/L (137-145); Total Bilirubin 0.5 mg/dL (0.2-1.3); Total Protein 4.4 g/dL (6.3-8.2)
--- NOTE | 2017-06-17 08:49 | P.PN ---
Subjective Principal diagnosis: Left hip fracture. Status post closed reduction and intramedullary hip screw fixation of the left hip This is an 87-year-old female who is status post closed reduction and intramedullary hip screw fixation of the left hip. This is postoperative day # 4. Patient is resting comfortably in bed. Patient admits that her hip is sore. Patient still complains of left shoulder pain. Patient is tolerating the wrist splint well. Patient states she was up in a chair yesterday. Patient denies any numbness, weakness or tingling. Objective - Vital Signs Vital signs: Vital Signs Temp 99.4 F 06/17/17 07:21 Pulse 83 06/17/17 07:21 Resp 22 06/17/17 07:21 BP 139/60 06/17/17 07:21 Pulse Ox 99 06/17/17 07:21 Intake & Output 06/16/17 06/17/17 06/17/17 18:59 06:59 18:59 Intake Total 515 850 Balance 515 850 Intake: Intake, IV Titration 250 450 Amount Sodium Chloride 0.9% 1, 250 450 000 ml @ 125 mls/hr IV . Q8H [facility] Rx#:[id number] Oral 240 400 Blood Product 25 Rc As-3 Unit 25 [id number] Other: Voiding Method Bedpan Bedpan # Voids 1 1 - Exam On exam patient is in no acute distress. Patient is alert and answering questions appropriately. On exam of the left lower extremity incision is clean , dry and intact. There is no drainage. There is mild soft tissue swelling. Compartments are soft. Patient has full foot and ankle motion. Calf is soft and nontender. Neurovascular status is intact. On exam of the left upper extremity there is no tenderness to palpation of the left shoulder.There is no swelling, erythema or ecchymosis of the left shoulder. Patient has pain with passive range of motion. Splint is intact to the left wrist. There is tenderness to palpation over the dorsal aspect of the left wrist. There is mild swelling and ecchymosis to the left wrist today. Patient has full range of motion of the left hand. Sensation intact. Neurovascular status is intact. - Labs CBC & Chem 7: 06/17/17 07:25 06/16/17 08:12 Labs: Abnormal Lab Results - Last 24 Hours (Table) 06/13/17 06/16/1717 Range/Units 10:32 08:12 08:12 RBC (3.80-5.40) m/uL Hgb (11.4-16.0) gm/dL Hct (34.0-46.0) % RDW (11.5-15.5) % Lymphocytes # (1.0-4.8) k/uL PT 17.0 H (9.0-12.0) sec INR 1.8 H (<1.2) Chloride 109 H (98-107) mmol/L BUN 19 H (7-17) mg/dL Calcium 7.7 L (8.4-10.2) mg/dL Total Protein 4.6 L (6.3-8.2) g/dL Albumin 2.4 L (3.5-5.0) g/dL Urine Protein (Negative) Ur Leukocyte Esterase (Negative) Amorphous Sediment (None) /hpf Urine Bacteria (None) /hpf Urine Mucus (None) /hpf Crossmatch See Detail 06/16/17 06/16/17 06/17/17 Range/Units 12:10 20:41 07:25 RBC (3.80-5.40) m/uL Hgb (11.4-16.0) gm/dL Hct (34.0-46.0) % RDW (11.5-15.5) % Lymphocytes # (1.0-4.8) k/uL PT 16.5 H (9.0-12.0) sec INR 1.7 H (<1.2) Chloride (98-107) mmol/L BUN (7-17) mg/dL Calcium (8.4-10.2) mg/dL Total Protein (6.3-8.2) g/dL Albumin (3.5-5.0) g/dL Urine Protein 1+ H (Negative) Ur Leukocyte Esterase Trace H (Negative) Amorphous Sediment Occasional H (None) /hpf Urine Bacteria Occasional H (None) /hpf Urine Mucus Rare H (None) /hpf Crossmatch See Detail 06/17/17 Range/Units 07:25 RBC 2.50 L (3.80-5.40) m/uL Hgb 7.2 L (11.4-16.0) gm/dL Hct 22.4 L (34.0-46.0) % RDW 19.3 H (11.5-15.5) % Lymphocytes # 0.7 L (1.0-4.8) k/uL PT (9.0-12.0) sec INR (<1.2) Chloride (98-107) mmol/L BUN (7-17) mg/dL Calcium (8.4-10.2) mg/dL Total Protein (6.3-8.2) g/dL Albumin (3.5-5.0) g/dL Urine Protein (Negative) Ur Leukocyte Esterase (Negative) Amorphous Sediment (None) /hpf Urine Bacteria (None) /hpf Urine Mucus (None) /hpf Crossmatch Assessment and Plan (1) Intertrochanteric fracture of left hip Status: Acute (2) Left shoulder pain Status: Acute (3) Hip fracture, left Status: Acute (4) Fall Status: Acute (5) Wrist fracture, left Status: Acute (6) Status post hip surgery Status: Acute Plan: #1. Toe-touch weightbearing to the left lower extremity with a walker. #2. X-rays of the left wrist show an oblique nondisplaced intra-articular fracture of the distal radius. Continue wrist splint, rest, ice and elevation. #3. Hemoglobin is 7.2 today. Medicine to manage. #3. Continue physical therapy for the hip and left shoulder. #4. We'll continue to follow the patient closely. Anticipate discharge to rehab when medically stable.
[2017-06-17] MEDS ORDERED: ERGOCALCIFEROL 50,000 UNIT CAP PO SCH (09:00)
--- NOTE | 2017-06-17 16:43 | P.PN ---
Subjective This is a 87-year-old female seen for Dr. Pedro Deutsch in [facility]. Patient apparently sustained a fall and had a intertrochanteric fracture of the left hip patient is postoperative day 1. Patient was noted to have some degree of anemia prior to the surgery patient's hemoglobin today is around 7 g per DL Patient received 2 units of PRBC However another unit of PRBC was also ordered Today during my evaluation patient is rather confused and does not remember her fall Patient did have a febrile reaction during her last transfusion blood was held Temperature at maximum was around 101 Fahrenheit No other symptoms are reported is easily arousable 2016 Patient is more awake today. States that she has some numbness in her left foot No fevers chills difficulty breathing chest pain is reported at this time Objective - Vital Signs Vital signs: Vital Signs Temp 96.9 F L 06/17/17 14:36 Pulse 93 06/17/17 14:36 Resp 16 06/17/17 14:36 BP 120/55 06/17/17 14:36 Pulse Ox 100 06/17/17 14:36 Intake & Output 06/16/17 06/17/17 06/17/17 18:59 06:59 18:59 Intake Total 515 850 Balance 515 850 Intake: Intake, IV Titration 250 450 Amount Sodium Chloride 0.9% 1, 250 450 000 ml @ 125 mls/hr IV . Q8H [facility] Rx#:[id number] Oral 240 400 Blood Product 25 Rc As-3 Unit 25 [id number] Other: Voiding Method Bedpan Bedpan # Voids 1 1 2 - Exam Gen. appearance slightly drowsy however is able to answer questions appropriately Neck neck is supple no JVD Heart S1-S2 heard no murmurs appreciated Lungs clear to auscultation bilaterally no rhonchi or wheezing Abdomen soft nontender no organomegaly Left hip tender to palpation appropriate no significant hematoma noted Wadsworth catheter in place Neuro moves all 4 extremities - Labs CBC & Chem 7: 06/17/17 07:25 06/17/17 07:25 Labs: Abnormal Lab Results - Last 24 Hours (Table) 06/16/17 06/17/17 06/17/17 Range/Units 20:41 07:25 07:25 RBC 2.50 L (3.80-5.40) m/uL Hgb 7.2 L (11.4-16.0) gm/dL Hct 22.4 L (34.0-46.0) % RDW 19.3 H (11.5-15.5) % Lymphocytes # 0.7 L (1.0-4.8) k/uL PT 16.5 H (9.0-12.0) sec INR 1.7 H (<1.2) Chloride (98-107) mmol/L BUN (7-17) mg/dL Calcium (8.4-10.2) mg/dL Total Protein (6.3-8.2) g/dL Albumin (3.5-5.0) g/dL Urine Protein 1+ H (Negative) Ur Leukocyte Esterase Trace H (Negative) Amorphous Sediment Occasional H (None) /hpf Urine Bacteria Occasional H (None) /hpf Urine Mucus Rare H (None) /hpf 06/17/17 Range/Units 07:25 RBC (3.80-5.40) m/uL Hgb (11.4-16.0) gm/dL Hct (34.0-46.0) % RDW (11.5-15.5) % Lymphocytes # (1.0-4.8) k/uL PT (9.0-12.0) sec INR (<1.2) Chloride 109 H (98-107) mmol/L BUN 19 H (7-17) mg/dL Calcium 7.7 L (8.4-10.2) mg/dL Total Protein 4.4 L (6.3-8.2) g/dL Albumin 2.3 L (3.5-5.0) g/dL Urine Protein (Negative) Ur Leukocyte Esterase (Negative) Amorphous Sediment (None) /hpf Urine Bacteria (None) /hpf Urine Mucus (None) /hpf Microbiology - Last 24 Hours (Table) 06/16/17 20:41 Urine Culture - Preliminary Urine,Voided Assessment and Plan Plan: #1 acute blood loss anemia with underlying iron deficiency #2 left hip fracture status post surgical correction #3 acute encephalopathy could be multifactorial including metabolic and toxic #4 history of hypertension #5 depression #6 vitamin D insufficiency #7 supraspinatus tendinitis Plan We'll globin is stable continue monitoring A compression sock With that Fatemeh 20 psi pressure will be implemented on the left lower extremity if patient continues to have numbness as patient does have 1+ pitting edema in the left lower extremity may need to consider an UNNA boot Judicious use of narcotics
[2017-06-17] MEDS ORDERED: WARFARIN 2.5 MG TAB PO ONE (18:00)
[2017-06-17] MEDS: LATANOPROST 0.005% OPHTH DROPS 2.5 ML BTL BOTH EYES SCH (20:08)
[2017-06-17] MEDS: SENNOSIDES-DOCUSATE SODIUM 1 EACH TAB PO SCH (20:08)
[2017-06-17] MEDS: ACETAMINOPHEN TAB 325 MG TAB PO PRN (22:52)
[2017-06-18] MEDS: HYDROcodone/APAP 5-325MG 1 EACH TAB PO PRN ×3 (05:32→22:57)
[2017-06-18] MEDS: FERROUS SULFATE 325 MG TAB PO SCH ×2 (07:21→16:52)
[2017-06-18 07:40] LABS: INR 1.8 (<1.2); Prothrombin Time 17.2 sec (9.0-12.0)
--- NOTE | 2017-06-18 08:15 | P.PN ---
Subjective Principal diagnosis: Left hip fracture. Status post closed reduction and intramedullary hip screw fixation of the left hip This is an 87-year-old female who is status post closed reduction and intramedullary hip screw fixation of the left hip. This is postoperative day # 5. Patient is resting comfortably in bed eating breakfast. Patient states that her pain is well controlled. Patient states that she still has left shoulder pain but it has improved over the last few days. Patient is tolerating the wrist splint well. Patient denies any numbness, weakness or tingling. Objective - Vital Signs Vital signs: Vital Signs Temp 98.7 F 06/18/17 07:18 Pulse 89 06/18/17 07:18 Resp 16 06/18/17 07:18 BP 110/68 06/18/17 07:18 Pulse Ox 94 L 06/18/17 07:18 Intake & Output 06/17/17 06/18/17 06/18/17 18:59 06:59 18:59 Intake Total 900 Output Total 1050 Balance -150 Intake: Oral 900 Output: Urine 1050 Other: Voiding Method Bedpan # Voids 2 2 - Exam On exam patient is in no acute distress. Patient is alert and answering questions appropriately. On exam of the left lower extremity incision is clean , dry and intact. There is minimal drainage. There is mild soft tissue swelling. Compartments are soft. Patient has full foot and ankle motion. Sensation intact. Calf is soft and nontender. Neurovascular status is intact. On exam of the left upper extremity there is no tenderness to palpation of the left shoulder.There is no swelling, erythema or ecchymosis of the left shoulder. Patient has limited active range of motion due to pain. Splint is intact to the left wrist. Patient has full range of motion of the left hand. Sensation intact. Neurovascular status is intact. - Labs CBC & Chem 7: 06/17/17 07:25 06/17/17 07:25 Labs: Abnormal Lab Results - Last 24 Hours (Table) 06/17/17 06/18/17 Range/Units 07:25 07:06 PT 17.2 H (9.0-12.0) sec INR 1.8 H (<1.2) Chloride 109 H (98-107) mmol/L BUN 19 H (7-17) mg/dL Calcium 7.7 L (8.4-10.2) mg/dL Total Protein 4.4 L (6.3-8.2) g/dL Albumin 2.3 L (3.5-5.0) g/dL Microbiology - Last 24 Hours (Table) 06/16/17 15:53 Blood Culture - Preliminary Blood No Growth after 24 hours 06/16/17 15:58 Blood Culture - Preliminary Blood No Growth after 24 hours 06/16/17 20:41 Urine Culture - Preliminary Urine,Voided Assessment and Plan (1) Intertrochanteric fracture of left hip Status: Acute (2) Left shoulder pain Status: Acute (3) Hip fracture, left Status: Acute (4) Fall Status: Acute (5) Wrist fracture, left Status: Acute (6) Status post hip surgery Status: Acute Plan: #1. Toe-touch weightbearing to the left lower extremity with a walker. #2. X-rays of the left wrist show an oblique nondisplaced intra-articular fracture of the distal radius. Continue wrist splint, rest, ice and elevation. #3. Continue physical therapy for the hip and left shoulder. #4. We'll continue to follow the patient closely. Anticipate discharge to rehab when medically stable.
[2017-06-18 08:23] LABS: Anion Gap 3 mmol/L; Blood Urea Nitrogen 18 mg/dL (7-17); Carbon Dioxide 25 mmol/L (22-30); Chloride 106 mmol/L (98-107); Glucose 89 mg/dL (74-99); Non-African American GFR(MDRD) >60 (>60 ml/min/1.73 sqM); Potassium 4.3 mmol/L (3.5-5.1); Sodium 134 mmol/L (137-145)
[2017-06-18 08:32] LABS: Anisocytosis Slight; Basophils % (A) 0 %; CH 27.2; CHCM 30.9; Eosinophils # (A) 0.4 k/uL (0-0.7); Eosinophils % (A) 5 %; HCT 21.9 % (34.0-46.0); HDW 3.24; Hypochromasia Moderate; Luc # (Auto) 0.13; Luc % (Auto) 2; Lymphocytes # (A) 0.7 k/uL (1.0-4.8); Lymphocytes % (A) 10 %; MCH 28.1 pg (25.0-35.0); MCHC 31.7 g/dL (31.0-37.0); MCV 88.7 fL (80.0-100.0); Monocytes # (A) 0.6 k/uL (0-1.0); Monocytes % (A) 8 %; Neutrophils # (A) 5.4 k/uL (1.3-7.7); Neutrophils % (A) 75 %; RBC 2.47 m/uL (3.80-5.40); RDW 18.4 % (11.5-15.5); WBC 7.1 k/uL (3.8-10.6); WBC (Perox) 7.34
[2017-06-18] MEDS: SODIUM FERRIC GLUCONAT-SUCROSE 125 MG in SODIUM CHLORIDE 0.9% 100 ML IVPB SCH ×2 (10:06→21:04)
[2017-06-18] MEDS ORDERED: WARFARIN 2.5 MG TAB PO ONE (18:00)
[2017-06-18] MEDS: SENNOSIDES-DOCUSATE SODIUM 1 EACH TAB PO SCH (20:48)
[2017-06-18] MEDS: LATANOPROST 0.005% OPHTH DROPS 2.5 ML BTL BOTH EYES SCH (20:48)
[2017-06-19 07:22] LABS: Anisocytosis Slight; Basophils % (A) 0 %; CH 28.3; CHCM 32.2; Eosinophils # (A) 0.4 k/uL (0-0.7); Eosinophils % (A) 6 %; HCT 21.9 % (34.0-46.0); HDW 3.18; Hypochromasia Slight; Luc # (Auto) 0.11; Luc % (Auto) 2; Lymphocytes # (A) 0.8 k/uL (1.0-4.8); Lymphocytes % (A) 12 %; MCH 27.8 pg (25.0-35.0); MCHC 31.4 g/dL (31.0-37.0); MCV 88.6 fL (80.0-100.0); Mean Platelet Volume 8.6; Monocytes # (A) 0.6 k/uL (0-1.0); Monocytes % (A) 9 %; Neutrophils # (A) 4.8 k/uL (1.3-7.7); Neutrophils % (A) 71 %; RBC 2.47 m/uL (3.80-5.40); RDW 19.1 % (11.5-15.5); WBC 6.7 k/uL (3.8-10.6); WBC (Perox) 7.07
[2017-06-19 07:28] LABS: HGB 6.9 gm/dL (11.4-16.0)
[2017-06-19 07:29] LABS: Prothrombin Time 19.1 sec (9.0-12.0)
[2017-06-19] MEDS: FERROUS SULFATE 325 MG TAB PO SCH ×2 (08:18→17:09)
[2017-06-19] MEDS: ACETAMINOPHEN TAB 325 MG TAB PO PRN (08:20)
[2017-06-19] MEDS: AMOXIC-POT CLAV 875-125MG 1 EACH TAB PO SCH ×2 (08:47→22:48)
--- NOTE | 2017-06-19 09:04 | PN ---
PROGRESS NOTE SUBJECTIVE: An 87-year-old, white female, who was admitted at this time with significant hip fracture, remains severely anemic. I placed her on IV iron today and every day she will continue with PT, OT and be sent to the rehab center in the next 24-48 hours. Cardiovascular S1, S2. Lungs are clear. GI is soft. Hematologic, negative Homans. Hemoglobin is down to 7.0 today. I ordered iron. If it remains low tomorrow, some blood will be given again. She remains on IV iron. She may need to be taken off her blood thinner if she keeps dropping her hemoglobin. Iron infusions have been started. Albumin is very low. She has moderate to severe protein calorie malnutrition, severe anemia. She will need a rehab center once her blood count stabilizes and her hemoglobin, IV iron, possible blood transfusion may be needed. She had a fever with her last blood transfusion, so will try iron infusions first with Venofer. MMODL / IJN: [id number] /
--- NOTE | 2017-06-19 10:05 | P.PN ---
Subjective Principal diagnosis: Left hip fracture. Status post closed reduction and intramedullary hip screw fixation of the left hip This is an 87-year-old female who is status post closed reduction and intramedullary hip screw fixation of the left hip. This is postoperative day # 6. Patient is resting comfortably in a chair. Patient states that her pain is well controlled. Patient states she has felt somewhat dizzy today. Patient states she has not had a bowel movement yet, but is passing flatus. Patient denies any numbness, weakness or tingling. Objective - Vital Signs Vital signs: Vital Signs Temp 98.7 F 06/19/17 08:58 Pulse 88 06/19/17 08:58 Resp 16 06/19/17 08:58 BP 133/73 06/19/17 08:58 Pulse Ox 94 L 06/19/17 08:58 Intake & Output 06/18/17 06/19/17 06/19/17 18:59 06:59 18:59 Intake Total 300 1050 Output Total 400 400 Balance -100 1050 -400 Weight 66.67 kg Intake: Intake, IV Titration 100 Amount Sodium Ferric Gluconat- 100 Sucrose 125 mg In Sodium Chloride 0.9% 100 ml @ 100 mls/hr IVPB Q12HR [facility] Rx#:[id number] Oral 300 950 Output: Urine 400 400 Other: Voiding Method Bedpan Bedpan Bedpan # Voids 1 4 # Bowel Movements 0 - Exam On exam patient is in no acute distress. Patient is alert and answering questions appropriately. On exam of the left lower extremity incision is clean , dry and intact. There is no drainage. There is mild soft tissue swelling. Compartments are soft. Patient has full foot and ankle motion. Sensation intact. Calf is soft and nontender. Neurovascular status is intact. On exam of the left upper extremity there is no tenderness to palpation of the left shoulder.There is no swelling, erythema or ecchymosis of the left shoulder. Patient has limited active range of motion due to pain. Splint is intact to the left wrist. Patient has full range of motion of the left hand. Sensation intact. Neurovascular status is intact. - Labs CBC & Chem 7: 06/19/17 06:41 06/18/17 07:05 Labs: Abnormal Lab Results - Last 24 Hours (Table) 06/16/17 06/19/17 06/19/17 Range/Units 12:10 06:41 06:41 RBC 2.47 L (3.80-5.40) m/uL Hgb 6.9 L* (11.4-16.0) gm/dL Hct 21.9 L (34.0-46.0) % RDW 19.1 H (11.5-15.5) % Lymphocytes # 0.8 L (1.0-4.8) k/uL PT 19.1 H (9.0-12.0) sec INR 2.0 H (<1.2) Crossmatch See Detail Microbiology - Last 24 Hours (Table) 06/16/17 15:53 Blood Culture - Preliminary Blood No Growth after 48 hours 06/16/17 15:58 Blood Culture - Preliminary Blood No Growth after 48 hours 06/16/17 20:41 Urine Culture - Preliminary Urine,Voided Gram Neg Bacilli Assessment and Plan (1) Intertrochanteric fracture of left hip Status: Acute (2) Left shoulder pain Status: Acute (3) Hip fracture, left Status: Acute (4) Fall Status: Acute (5) Wrist fracture, left Status: Acute (6) Status post hip surgery Status: Acute Plan: #1. Toe-touch weightbearing to the left lower extremity with a walker. #2. X-rays of the left wrist show an oblique nondisplaced intra-articular fracture of the distal radius. Continue wrist splint, rest, ice and elevation. #3. Continue physical therapy for the hip and left shoulder. #4. Patient's hemoglobin is low again today and will receive another blood transfusion per medicine. #4. We'll continue to follow the patient closely. Anticipate discharge to rehab when medically stable.
--- NOTE | 2017-06-19 11:05 | PN ---
PROGRESS NOTE DATE OF ADMISSION: 06/19/2017 HISTORY: Despite IV Venofer, hemoglobin dropped below 7, to 6.9. We will have to give a 1 unit of blood to stabilize and give her Tylenol prep ahead of time. PHYSICAL EXAMINATION: CARDIOVASCULAR: S1 and S2. LUNGS: Clear. ABDOMEN: Soft. Negative Homans. GENERAL: Appears weak and fatigued. LABORATORY DATA: Platelet count in normal range 272,000. White count normal at 6.7. ASSESSMENT AND PLAN: Doubt any myeloproliferative disorder is present. We will give another unit of blood. Continue Venofer. INR is 2.0. We may need to wait a day before she goes into the rehab center. Continue supplement Venofer and transfusions. Her albumin level is very low. Protein calorie malnutrition treatment including protein shakes, etc. MMODL / HARDEEPN: [id number] /
[2017-06-19] MEDS: SODIUM FERRIC GLUCONAT-SUCROSE 125 MG in SODIUM CHLORIDE 0.9% 100 ML IVPB SCH ×2 (13:08→20:13)
[2017-06-19] MEDS: HYDROcodone/APAP 5-325MG 1 EACH TAB PO PRN ×2 (13:14→19:32)
[2017-06-19] MEDS: SENNOSIDES-DOCUSATE SODIUM 1 EACH TAB PO SCH (22:47)
[2017-06-19] MEDS: LATANOPROST 0.005% OPHTH DROPS 2.5 ML BTL BOTH EYES SCH (22:48)
[2017-06-19] MEDS ORDERED: ACETAMINOPHEN TAB 500 MG TAB PO PRN (23:33)
[2017-06-20 07:01] LABS: Anisocytosis Slight; Basophils % (A) 0 %; CH 27.9; CHCM 31.6; Eosinophils # (A) 0.3 k/uL (0-0.7); Eosinophils % (A) 4 %; HDW 3.22; HGB 8.3 gm/dL (11.4-16.0); Hypochromasia Slight; Luc # (Auto) 0.18; Luc % (Auto) 2; Lymphocytes # (A) 0.8 k/uL (1.0-4.8); Lymphocytes % (A) 10 %; MCH 28.5 pg (25.0-35.0); MCHC 32.1 g/dL (31.0-37.0); MCV 88.8 fL (80.0-100.0); Mean Platelet Volume 7.8; Monocytes # (A) 0.6 k/uL (0-1.0); Monocytes % (A) 7 %; Neutrophils # (A) 6.3 k/uL (1.3-7.7); Neutrophils % (A) 77 %; RBC 2.93 m/uL (3.80-5.40); RDW 18.1 % (11.5-15.5); WBC 8.2 k/uL (3.8-10.6); WBC (Perox) 8.78
[2017-06-20 07:08] LABS: INR 1.6 (<1.2); Prothrombin Time 15.7 sec (9.0-12.0)
[2017-06-20] MEDS: FERROUS SULFATE 325 MG TAB PO SCH ×2 (08:28→18:05)
[2017-06-20] MEDS: AMOXIC-POT CLAV 875-125MG 1 EACH TAB PO SCH ×2 (08:29→21:02)
--- NOTE | 2017-06-20 09:33 | P.PN ---
Subjective Principal diagnosis: Left hip fracture. Status post closed reduction and intramedullary hip screw fixation of the left hip This is an 87-year-old female who is status post closed reduction and intramedullary hip screw fixation of the left hip. This is postoperative day # 7. Patient is resting comfortably in a chair. Patient states that her pain is well controlled. Patient denies any abdominal pain and states she is passing gas. It is documented in the chart by nursing that patient has had one bowel movement yesterday. Patient denies any numbness, weakness or tingling. Objective - Vital Signs Vital signs: Vital Signs Temp 98.5 F 06/20/17 07:04 Pulse 83 06/20/17 07:35 Resp 14 06/20/17 07:35 BP 125/65 06/20/17 07:04 Pulse Ox 98 06/20/17 07:04 Intake & Output 06/19/17 06/20/17 06/20/17 18:59 06:59 18:59 Intake Total 0 550 180 Output Total 400 720 Balance -400 -170 180 Weight 66.67 kg Intake: Oral 550 180 Blood Product 0 Rc Cpda-1 Unit 0 [id number] Output: Urine 400 720 Other: Voiding Method Bedpan Bedside Commode Bedpan # Voids 3 1 # Bowel Movements 1 - Exam On exam patient is in no acute distress. Patient is alert and answering questions appropriately. On exam of the left lower extremity dressing is intact. Patient has full foot and ankle motion. Sensation intact. Calf is soft and nontender. Neurovascular status is intact. Splint is intact to the left wrist. Patient has full range of motion of the left hand. Sensation intact. Neurovascular status is intact. - Labs CBC & Chem 7: 06/20/17 06:16 06/18/17 07:05 Labs: Abnormal Lab Results - Last 24 Hours (Table) 06/16/17 06/20/17 06/20/17 Range/Units 12:10 06:16 06:16 RBC 2.93 L (3.80-5.40) m/uL Hgb 8.3 L (11.4-16.0) gm/dL Hct 26.0 L (34.0-46.0) % RDW 18.1 H (11.5-15.5) % Lymphocytes # 0.8 L (1.0-4.8) k/uL PT 15.7 H (9.0-12.0) sec INR 1.6 H (<1.2) Crossmatch See Detail Microbiology - Last 24 Hours (Table) 06/16/17 15:53 Blood Culture - Preliminary Blood No Growth after 72 hours 06/16/17 15:58 Blood Culture - Preliminary Blood No Growth after 72 hours 06/16/17 20:41 Urine Culture - Final Urine,Voided Pseudomonas aeruginosa Assessment and Plan (1) Intertrochanteric fracture of left hip Status: Acute (2) Left shoulder pain Status: Acute (3) Hip fracture, left Status: Acute (4) Fall Status: Acute (5) Wrist fracture, left Status: Acute (6) Status post hip surgery Status: Acute Plan: #1. Toe-touch weightbearing to the left lower extremity with a walker. #2. X-rays of the left wrist show an oblique nondisplaced intra-articular fracture of the distal radius. Continue wrist splint, rest, ice and elevation. #3. Continue physical therapy for the hip and left shoulder. #4. We'll continue to follow the patient closely. Anticipate discharge to rehab when medically stable.
[2017-06-20 10:50] LABS: Reticulocyte % 3.6 % (0.5-2.0)
[2017-06-20 12:15] LABS: % Iron Saturation 23.3 % (20-50)
[2017-06-20] MEDS: HYDROcodone/APAP 5-325MG 1 EACH TAB PO PRN ×2 (14:22→21:02)
[2017-06-20 14:24] VITALS: RESP 16
[2017-06-20] MEDS ORDERED: WARFARIN 2.5 MG TAB PO ONE (18:00)
--- NOTE | 2017-06-20 20:02 | P.CONS ---
History of Present Illness - Reason for Consult Consult date: 06/20/17 transfusion reaction Requesting physician: Pedro Deutsch - Chief Complaint fall, requiring Orthopedic intervention - History of Present Illness Ms. Leonardo is a very pleasant lady who recently had traumatic fall with fractures requiring Orthopedic intervention. Pt was noted to be anemia and she was given 2 units of blood initially with appropriate response. After surgery it appears she had another fall in Hgb so she was ordered more blood but she developed a temp so the blood was stopped, no further transfusions, Hgb today is stable at 8.3. Pt states that she feels ok today, her arm is sore, she denies any known history of anemia or bleeding, she is not short of breath or having any chest pains, her daughter at bedside and mentation is baseline. Review of Systems HPI difficult to obtain due to mental status, focused ROS performed Past Medical History Past Medical History: CVA/TIA, Dementia, Eye Disorder, Hypertension, Osteoarthritis (OA), Vascular Disorder Additional Past Medical History / Comment(s): pelvic fracture right side, arthritis bilateral hands and feet, AAA-small, glaucoma R eye, TIA in 2009, diverticular dx/benign polyps History of Any Multi-Drug Resistant Organisms: None Reported Past Surgical History: Appendectomy, Cholecystectomy, Joint Replacement, Tonsillectomy Additional Past Surgical History / Comment(s): left total knee surgery, colonoscopy/polypectomy, bilateral cataract removal, surgery for glaucoma. Past Anesthesia/Blood Transfusion Reactions: No Reported Reaction, Motion Sickness Past Psychological History: Anxiety Additional Psychological History / Comment(s): Pt states she resides alone. She uses a cane and has a walker when needed to use. She drives minimally. She has very helpful adult children. She has no home care. Smoking Status: Never smoker Past Alcohol Use History: None Reported Past Drug Use History: None Reported - Past Family History Father Family Medical History: CVA/TIA Additional Family Medical History / Comment(s): Father of a CVA at the age of 65yrs. Mother Family Medical History: Dementia, Eye Disorder Additional Family Medical History / Comment(s): Mother at the age of 96yrs. She was healthy until age 90 when she went blind and had dementia. Medications and Allergies Home Medications Medication Instructions Recorded Confirmed Type Ergocalciferol [Vitamin D2 50,000 unit PO ALLEN 04/12/17 06/12/17 History (DRISDOL)] Ferrous Sulfate [Iron] 325 mg PO TID 04/12/17 06/12/17 History Sertraline HCl [Zoloft] 12.5 mg PO HS PRN 04/12/17 06/12/17 History Bimatoprost [Lumigan .01% Ophth 1 drop BOTH EYES HS 06/03/17 06/12/17 History Soln] Diclofenac Sodium Gel [Voltaren 2 gm TOPICAL TID PRN 06/03/17 06/12/17 History Gel] Allergies Allergy/AdvReac Type Severity Reaction Status Date / Time coconut oil Allergy Unknown Verified 06/13/17 11:01 Physical Exam Vitals: Vital Signs Temp Pulse Pulse Resp BP Pulse Ox 06/20/17 14:23 99.1 F 95 16 131/72 96 06/20/17 07:35 85 83 14 06/20/17 07:04 98.5 F 85 83 14 125/65 98 06/20/17 06:09 100.1 F H 84 06/20/17 04:47 100.4 F H 06/20/17 03:50 102.1 F H 95 17 154/75 95 06/20/17 02:00 99.4 F 88 06/19/17 23:28 99.9 F H 102 H 06/19/17 20:31 99.6 F 120 H 16 127/61 96 06/19/17 20:00 120 H Intake and Output 06/20/17 06/20/17 06/20/17 06:59 14:59 22:59 Intake Total 0 180 Output Total 120 Balance -120 180 Intake: Oral 0 180 Output: Urine 120 Other: Voiding Method Bedpan # Voids 1 # Bowel Movements 1 - Constitutional General appearance: average body habitus, cooperative, no acute distress - EENT Eyes: anicteric sclerae, PERRLA - Respiratory Respiratory: bilateral: CTA - Cardiovascular Heart sounds: normal: S1, S2 - Gastrointestinal General gastrointestinal: normal bowel sounds - Integumentary left arm bruising - Neurologic Neurologic: CNII-XII intact - Psychiatric Psychiatric: A&O x's 3, appropriate affect, no intact judgment & insight Results CBC & Chem 7: 06/20/17 06:16 06/18/17 07:05 Labs: Abnormal Lab Results - Last 24 Hours (Table) 06/20/17 06/20/17 06/20/17 Range/Units 06:16 06:16 06:16 RBC 2.93 L (3.80-5.40) m/uL Hgb 8.3 L (11.4-16.0) gm/dL Hct 26.0 L (34.0-46.0) % RDW 18.1 H (11.5-15.5) % Lymphocytes # 0.8 L (1.0-4.8) k/uL Retic Count 3.6 H (0.5-2.0) % PT 15.7 H (9.0-12.0) sec INR 1.6 H (<1.2) TIBC (265-497) ug/dL 06/20/17 Range/Units 06:16 RBC (3.80-5.40) m/uL Hgb (11.4-16.0) gm/dL Hct (34.0-46.0) % RDW (11.5-15.5) % Lymphocytes # (1.0-4.8) k/uL Retic Count (0.5-2.0) % PT (9.0-12.0) sec INR (<1.2) TIBC 245 L (265-497) ug/dL Microbiology - Last 24 Hours (Table) 06/16/17 15:53 Blood Culture - Preliminary Blood No Growth after 96 hours 06/16/17 15:58 Blood Culture - Preliminary Blood No Growth after 96 hours Assessment and Plan (1) Transfusion reaction Narrative/Plan: Blood that pt had reaction to has been returned to blood bank for appropriate laboratory testing. Status: Acute (2) Anemia Narrative/Plan: Anemia work up ordered, will follow up on the labs and make recommendations as appropriate. Hgb 8.3 today, no need for transfusion currently. Status: Chronic
[2017-06-20] MEDS: SENNOSIDES-DOCUSATE SODIUM 1 EACH TAB PO SCH (21:02)
[2017-06-20] MEDS: LATANOPROST 0.005% OPHTH DROPS 2.5 ML BTL BOTH EYES SCH (21:02)
[2017-06-20] MEDS: SODIUM FERRIC GLUCONAT-SUCROSE 125 MG in SODIUM CHLORIDE 0.9% 100 ML IVPB SCH (21:37)
[2017-06-21 03:02] LABS: Appearance,Urine Clear (Clear); Bilirubin,Urine Negative (Negative); Glucose,Urine (UA) Negative (Negative); Ketones,Urine Negative (Negative); Leukocyte Esterase,Urine Negative (Negative); Nitrite,Urine Negative (Negative); PH, Urine 7.5 (5.0-8.0); Protein,Urine Negative (Negative); Specific Gravity,Urine 1.011 (1.001-1.035); UA Billing (MACRO vs. MICRO) CHEM; Urobilinogen,Urine <2.0 mg/dL (<2.0)
[2017-06-21 03:56] VITALS: PULSE 102
[2017-06-21] MEDS: HYDROcodone/APAP 5-325MG 1 EACH TAB PO PRN ×2 (05:44→14:56)
[2017-06-21 07:10] LABS: Anisocytosis Slight; CH 27.9; CHCM 31.4; HCT 26.4 % (34.0-46.0); HDW 3.02; HGB 8.4 gm/dL (11.4-16.0); Hypochromasia Slight; MCH 28.3 pg (25.0-35.0); MCHC 31.6 g/dL (31.0-37.0); MCV 89.5 fL (80.0-100.0); RBC 2.95 m/uL (3.80-5.40); RDW 18.2 % (11.5-15.5)
[2017-06-21 07:12] LABS: INR 1.4 (<1.2); Prothrombin Time 13.5 sec (9.0-12.0)
[2017-06-21 07:31] LABS: Anion Gap 6 mmol/L; Blood Urea Nitrogen 21 mg/dL (7-17); Calcium 8.2 mg/dL (8.4-10.2); Carbon Dioxide 27 mmol/L (22-30); Chloride 102 mmol/L (98-107); Glucose 85 mg/dL (74-99); LDH 666 U/L (313-618); Non-African American GFR(MDRD) 59 (>60 ml/min/1.73 sqM); Potassium 4.5 mmol/L (3.5-5.1); Sodium 135 mmol/L (137-145)
[2017-06-21 07:50] VITALS: BP 138/58; TEMP 98
--- NOTE | 2017-06-21 08:15 | P.PN ---
Subjective Principal diagnosis: Left hip fracture. Status post closed reduction and intramedullary hip screw fixation of the left hip This is an 87-year-old female who is status post closed reduction and intramedullary hip screw fixation of the left hip. This is postoperative day # 8. Patient is resting comfortably in her bed. Patient states that her pain is well controlled. Patient denies any numbness, weakness or tingling. Objective - Vital Signs Vital signs: Vital Signs Temp 98.0 F 06/21/17 07:50 Pulse 102 H 06/21/17 02:45 Resp 16 06/21/17 07:50 BP 138/58 06/21/17 07:50 Pulse Ox 94 L 06/21/17 07:50 Intake & Output 06/20/17 06/21/17 06/21/17 18:59 06:59 18:59 Intake Total 180 850 Balance 180 850 Intake: Intake, IV Titration 100 Amount Sodium Ferric Gluconat- 100 Sucrose 125 mg In Sodium Chloride 0.9% 100 ml @ 100 mls/hr IVPB Q24H JANNETTE Rx#:[id number] Oral 180 750 Other: Voiding Method Bedpan # Voids 1 1 # Bowel Movements 1 - Exam On exam patient is in no acute distress. Patient is alert and answering questions appropriately. On exam of the left lower extremity incision is clean , dry and intact. There is minimal drainage. Patient has full foot and ankle motion. Sensation intact. Calf is soft and nontender. Neurovascular status is intact. Splint is intact to the left wrist. Patient has full range of motion of the left hand. Sensation intact. Neurovascular status is intact. Capillary refill is normal at less than 2 seconds. - Labs CBC & Chem 7: 06/21/17 06:28 06/21/17 06:28 Labs: Abnormal Lab Results - Last 24 Hours (Table) 06/20/17 06/20/17 06/20/17 Range/Units 06:16 06:16 06:16 RBC (3.80-5.40) m/uL Hgb (11.4-16.0) gm/dL Hct (34.0-46.0) % RDW (11.5-15.5) % Retic Count 3.6 H (0.5-2.0) % PT (9.0-12.0) sec INR (<1.2) Sodium (137-145) mmol/L BUN (7-17) mg/dL Calcium (8.4-10.2) mg/dL TIBC 245 L (265-497) ug/dL Ferritin 357.7 H (10.0-291.0) ng/mL Lactate Dehydrogenase (313-618) U/L 06/21/17 06/21/17 06/21/17 Range/Units 06:28 06:28 06:28 RBC 2.95 L (3.80-5.40) m/uL Hgb 8.4 L (11.4-16.0) gm/dL Hct 26.4 L (34.0-46.0) % RDW 18.2 H (11.5-15.5) % Retic Count (0.5-2.0) % PT 13.5 H (9.0-12.0) sec INR 1.4 H (<1.2) Sodium 135 L (137-145) mmol/L BUN 21 H (7-17) mg/dL Calcium 8.2 L (8.4-10.2) mg/dL TIBC (265-497) ug/dL Ferritin (10.0-291.0) ng/mL Lactate Dehydrogenase 666 H (313-618) U/L Microbiology - Last 24 Hours (Table) 06/16/17 15:53 Blood Culture - Preliminary Blood No Growth after 96 hours 06/16/17 15:58 Blood Culture - Preliminary Blood No Growth after 96 hours Assessment and Plan (1) Intertrochanteric fracture of left hip Status: Acute (2) Left shoulder pain Status: Acute (3) Hip fracture, left Status: Acute (4) Fall Status: Acute (5) Wrist fracture, left Status: Acute (6) Status post hip surgery Status: Acute Plan: #1. Toe-touch weightbearing to the left lower extremity with a walker. #2. X-rays of the left wrist show an oblique nondisplaced intra-articular fracture of the distal radius. Continue wrist splint, rest, ice and elevation. #3. Continue physical therapy for the hip and left shoulder. #4. We'll continue to follow the patient closely. Anticipate discharge to rehab when medically stable.
[2017-06-21] MEDS: FERROUS SULFATE 325 MG TAB PO SCH (08:39)
[2017-06-21] MEDS: AMOXIC-POT CLAV 875-125MG 1 EACH TAB PO SCH (08:39)
--- NOTE | 2017-06-21 09:11 | P.DS ---
Providers Date of admission: 06/12/17 21:02 Expected date of discharge: 06/21/17 Attending physician: Justyn Bowman Consults: 06/12/17 21:01 Consult Physician Stat Consulting Provider: Pedro Deutsch Consult Reason/Comments: med clearance Do you want consulting provider notified?: Yes 06/20/17 06:57 Consult Physician Routine Consulting Provider: Morgan Giang Consult Reason/Comments: anemia/transfusion reaction Do you want consulting provider notified?: Yes Primary care physician: aJmel Wolfe - Discharge Diagnosis(es) (1) Intertrochanteric fracture of left hip Current Visit: Yes Status: Acute (2) Left shoulder pain Current Visit: Yes Status: Acute (3) Hip fracture, left Current Visit: Yes Status: Acute (4) Fall Current Visit: No Status: Acute (5) Wrist fracture, left Current Visit: Yes Status: Acute (6) Status post hip surgery Current Visit: Yes Status: Acute Hospital Course: This is a 87-year-old female who sustained an injury to the left hip after a fall on 06/12/2017. The patient presents for evaluation in the emergency room and was found to have a left intertrochanteric hip fracture. Patient is admitted on 06/12/2017 for orthopedic evaluation. After discussion and consideration patient elects to proceed with closed reduction and intramedullary hip screw fixation left hip. The patient is seen preoperatively by Dr. Bowman and cleared for surgery. On 06/14/2017 patient was found to have a left wrist fracture. Patient is placed in a left wrist splint. Closed reduction and intramedullary hip screw fixation was performed on 2016. The procedures performed without complication or sequelae. The patient is doing well postoperatively. Labs and vital signs are stable on day of discharge. Patient did have an episode of postoperative anemia. Patient did require 2 blood transfusions. Patient did develop a fever during the course of a blood transfusion. Patient was seen by hematology who believes the patient to be stable and may follow up as an outpatient. Patient is not having fevers on day of discharge. On day of discharge patient's hip incision is healing well. David are intact. There is minimal erythema. There is minimal drainage noted at this time. There is minimal soft tissue swelling to the hip and thigh. Patient has full foot and ankle motion without difficulty or pain. Neurovascular status to the left lower extremity is intact. Splint to the left wrist is intact. Patient has full range of motion of the fingers of the left hand. Neurovascular status is intact of the left upper extremity. Patient is discharged to rehab in good condition. Please see [facility] rec for accurate list of home medications. Patient Condition at Discharge: Stable Plan - Discharge Summary New Discharge Prescriptions: New HYDROcodone/APAP 5-325MG [House 5-325] 1 - 2 tab PO Q4-6H PRN #90 tab PRN Reason: Pain Sennosides-Docusate Sodium [Senokot-S] 1 tab PO BID #60 tablet Warfarin Sodium [Coumadin] 2.5 mg PO DAILY #30 tablet No Action Ferrous Sulfate [Iron] 325 mg PO TID Sertraline HCl [Zoloft] 12.5 mg PO HS PRN PRN Reason: Anxiety Ergocalciferol [Vitamin D2 (DRISDOL)] 50,000 unit PO ALLEN Diclofenac Sodium Gel [Voltaren Gel] 2 gm TOPICAL TID PRN PRN Reason: Pain Bimatoprost [Lumigan .01% Ophth Soln] 1 drop BOTH EYES HS Discharge Medication List Ergocalciferol [Vitamin D2 (DRISDOL)] 50,000 unit PO ALLEN 04/12/17 [History] Ferrous Sulfate [Iron] 325 mg PO TID 04/12/17 [History] Sertraline HCl [Zoloft] 12.5 mg PO HS PRN 04/12/17 [History] Bimatoprost [Lumigan .01% Ophth Soln] 1 drop BOTH EYES HS 06/03/17 [History] Diclofenac Sodium Gel [Voltaren Gel] 2 gm TOPICAL TID PRN 06/03/17 [History] HYDROcodone/APAP 5-325MG [House 5-325] 1 - 2 tab PO Q4-6H PRN #90 tab 06/21/17 [ Rx] Sennosides-Docusate Sodium [Senokot-S] 1 tab PO BID #60 tablet 06/21/17 [Rx] Warfarin Sodium [Coumadin] 2.5 mg PO DAILY #30 tablet 06/21/17 [Rx] Follow up Appointment(s)/Referral(s): Jamel Wolfe MD [Primary Care Provider] - 1-2 days Justyn Bowman DO [Doctor of Osteopathic Medicine] - 2 Weeks Ambulatory/Diagnostic Orders: Prothrombin Time INR [LAB.AMB] Time Frame: 4 Weeks, Location: Determined By Patient Activity/Diet/Wound Care/Special Instructions: Wrist Splint through [facility] [phone]. Toe-touch weightbearing to the left lower extremity with a walker. [place] to be removed on 06/27/2017 Continue daily dressing changes. Continue splint to left wrist along with rest, ice, elevation. May remove splint when in bed. Follow-up with [facility] in 2 weeks with any questions or concerns Discharge Disposition: TRANSFER TO SNF/ECF
[2017-06-21 10:55] LABS: Reticulocyte % 3.9 % (0.5-2.0)
[2017-06-21 12:59] LABS: Free Kappa Lt Chain Qnt, Serum 2.38 mg/dL (0.33-1.94)
--- NOTE | 2017-06-22 09:24 | PN ---
PROGRESS NOTE DATE OF SERVICE: 06/20/17. SUBJECTIVE: 87-year-old, white female, whose hemoglobin is up to 9.3 today, status post another unit of blood. Remains on IV iron. Cardiovascular S1, S2. Lungs are clear. GI is soft. Hematology negative Hom[place]. ASSESSMENT: 1. Left hip fracture. 2. Severe anemia. 3. Generalized debility. 4. Encephalopathy secondary to severe anemia. Continue with IV iron, possible rehab center admission at this point if she is improving. MMODL / IJN: [id number] /
[2017-06-22 12:16] LABS: Methylmalonic Acid 0.16 umol/L (<0.40)
== END 2017-06-21 15:30 | DRG 480 ==
LOC: EC 19:36 → 3SUR 21:02
PROVIDERS: ADMIT Orthopaedic Surgery; ATTEND Orthopaedic Surgery
PROC: 0QS736Z Reposition Left Upper Femur with Intramedullary Internal Fixation Device, Percutaneous Approach (ICD-10-PCS; principal; 2017-06-13 11:30)
PROC: 2W39X1Z Immobilization of Left Upper Extremity using Splint (ICD-10-PCS; 2017-06-14)
PROC: 30233N1 Transfusion of Nonautologous Red Blood Cells into Peripheral Vein, Percutaneous Approach (ICD-10-PCS; 2017-06-15)
DX: S72.142A Displaced intertrochanteric fracture of left femur, initial encounter for closed fracture (principal); E43 Unspecified severe protein-calorie malnutrition; I95.9 Hypotension, unspecified; G93.41 Metabolic encephalopathy; E86.0 Dehydration; F03.90 Unspecified dementia, unspecified severity, without behavioral disturbance, psychotic disturbance, mood disturbance, and anxiety; F05 Delirium due to known physiological condition; R50.81 Fever presenting with conditions classified elsewhere; D62 Acute posthemorrhagic anemia; S52.502A Unspecified fracture of the lower end of left radius, initial encounter for closed fracture; T80.92XA Unspecified transfusion reaction, initial encounter; I10 Essential (primary) hypertension; E55.9 Vitamin D deficiency, unspecified; R60.0 Localized edema; M75.82 Other shoulder lesions, left shoulder; I49.3 Ventricular premature depolarization; I44.0 Atrioventricular block, first degree; D50.9 Iron deficiency anemia, unspecified; R50.84 Febrile nonhemolytic transfusion reaction; M19.012 Primary osteoarthritis, left shoulder; M25.512 Pain in left shoulder; R00.0 Tachycardia, unspecified; M19.071 Primary osteoarthritis, right ankle and foot; M19.072 Primary osteoarthritis, left ankle and foot; R20.0 Anesthesia of skin; H40.9 Unspecified glaucoma; R53.1 Weakness; R51 Headache; F32.9 Major depressive disorder, single episode, unspecified; F41.9 Anxiety disorder, unspecified; M19.042 Primary osteoarthritis, left hand; M19.041 Primary osteoarthritis, right hand; Z82.3 Family history of stroke; Z86.010 Personal history of colon polyps; Z87.19 Personal history of other diseases of the digestive system; Z91.018 Allergy to other foods; Z71.3 Dietary counseling and surveillance; Z79.899 Other long term (current) drug therapy; Z86.73 Personal history of transient ischemic attack (TIA), and cerebral infarction without residual deficits; Z86.79 Personal history of other diseases of the circulatory system; Z98.42 Cataract extraction status, left eye; Z98.41 Cataract extraction status, right eye; Z90.49 Acquired absence of other specified parts of digestive tract; Z68.24 Body mass index [BMI] 24.0-24.9, adult; Z96.652 Presence of left artificial knee joint; W19.XXXA Unspecified fall, initial encounter; Y93.01 Activity, walking, marching and hiking; Y84.8 Other medical procedures as the cause of abnormal reaction of the patient, or of later complication, without mention of misadventure at the time of the procedure; Y92.007 Garden or yard of unspecified non-institutional (private) residence as the place of occurrence of the external cause
CPT/HCPCS: 70450; 71010; 72125; 73502; 80048; 80053; 81001; 81003; 82728; 82747; 83010; 83540; 83550; 83615; 83883; 83921; 84165; 85025; 85027; 85045; 85610; 85730; 86334; 86850; 86880; 86900; 86901; 86920; 87040; 87077; 87086; 87186; 93005; 96361; 96374; 96375; 99285

== ENCOUNTER 2017-12-10 06:43 | Emergency (ER) | payer MEDICARE ==
[2017-12-10 06:49] VITALS: TEMP 96.9
--- NOTE | 2017-12-10 07:24 | ED ---
General Adult HPI - General Chief complaint: Shortness of Breath Stated complaint: Dyspnea Time Seen by Provider: 12/10/17 07:00 Source: patient, family, RN notes reviewed Mode of arrival: ambulatory Limitations: no limitations - History of Present Illness Initial comments: Patient is a pleasant 87-year-old female presenting to the emergency department complaining of reported shortness of breath and dryness. Majority of history is taken from family. Patient is somewhat a poor historian. Patient reportedly called them and stated that she felt dry and short of breath. Patient states she feels fine at this time and has no complaints. Patient denies any dyspnea or chest pain. Patient states she does feel somewhat confused however family feels that she is at baseline. - Related Data Home Medications Medication Instructions Recorded Confirmed Ferrous Sulfate [Iron] 325 mg PO ALLEN 04/12/17 12/10/17 Sertraline HCl [Zoloft] 12.5 mg PO HS PRN 04/12/17 12/10/17 Ascorbic Acid [Vitamin C] 500 mg PO DAILY 12/10/17 12/10/17 Previous Rx's Medication Instructions Recorded Apixaban [Eliquis] 5 mg PO BID #74 tab 12/10/17 Allergies Allergy/AdvReac Type Severity Reaction Status Date / Time coconut oil Allergy Unknown Verified 12/10/17 08:17 Review of Systems ROS Statement: Those systems with pertinent positive or pertinent negative responses have been documented in the HPI. ROS Other: All systems not noted in ROS Statement are negative. Constitutional: Denies: fever Eyes: Denies: eye pain ENT: Denies: ear pain Respiratory: Denies: cough Cardiovascular: Denies: chest pain Endocrine: Denies: fatigue Gastrointestinal: Denies: abdominal pain Genitourinary: Denies: dysuria Musculoskeletal: Denies: back pain Skin: Denies: rash Neurological: Denies: headache Past Medical History Past Medical History: CVA/TIA, Dementia, Eye Disorder, Hypertension, Osteoarthritis (OA), Vascular Disorder Additional Past Medical History / Comment(s): pelvic fracture right side, arthritis bilateral hands and feet, AAA-small, glaucoma R eye, TIA in 2009, diverticular dx/benign polyps History of Any Multi-Drug Resistant Organisms: None Reported Past Surgical History: Appendectomy, Cholecystectomy, Joint Replacement, Tonsillectomy Additional Past Surgical History / Comment(s): left total knee surgery, colonoscopy/polypectomy, bilateral cataract removal, surgery for glaucoma. Past Anesthesia/Blood Transfusion Reactions: No Reported Reaction, Motion Sickness Past Psychological History: Anxiety Smoking Status: Never smoker Past Alcohol Use History: None Reported Past Drug Use History: None Reported - Past Family History Father Family Medical History: CVA/TIA Additional Family Medical History / Comment(s): Father of a CVA at the age of 65yrs. Mother Family Medical History: Dementia, Eye Disorder Additional Family Medical History / Comment(s): Mother at the age of 96yrs. She was healthy until age 90 when she went blind and had dementia. General Exam Limitations: no limitations General appearance: alert, in no apparent distress Head exam: Present: atraumatic Eye exam: Present: normal appearance, PERRL ENT exam: Present: normal oropharynx Neck exam: Present: normal inspection Respiratory exam: Present: normal lung sounds bilaterally Cardiovascular Exam: Present: regular rate, normal rhythm GI/Abdominal exam: Present: soft. Absent: tenderness Extremities exam: Present: normal inspection Neurological exam: Present: alert, oriented X3, CN II-XII intact. Absent: motor sensory deficit Expanded Patient oriented to: Present: person, place, time Motor strength exam: RUE: 5, LUE: 5, RLE: 5, LLE: 5 Eye Response: (4) open spontaneously Motor Response: (6) obeys commands Verbal Response: (5) oriented Psychiatric exam: Present: normal affect, normal mood Skin exam: Present: normal color Course Vital Signs 12/10/17 12/10/17 12/10/17 06:43 07:02 09:30 Temperature 96.9 F L Pulse Rate 56 L 55 L Pulse Rate [ 62 [employer] ] Respiratory 16 18 Rate Blood Pressure 142/72 136/77 O2 Sat by Pulse 100 100 Oximetry 12/10/17 11:40 Temperature Pulse Rate 62 Pulse Rate [ [employer] ] Respiratory 18 Rate Blood Pressure 156/92 O2 Sat by Pulse 97 Oximetry EKG Findings - EKG Comments: EKG Findings:: Sinus rhythm at 63. WI 182. QRS 94. QT 428. QTC 437. Left axis. Left anterior fascicular block. LVH criteria. No acute ST change. Medical Decision Making - Medical Decision Making Case discussed in detail with Dr. Wheeler, covering for Dr. Wolfe. She agrees patient can be treated as an outpatient and does recommend follow-up with pulmonary. Patient and family have been updated. - Lab Data Result diagrams: 12/10/17 07:45 12/10/17 07:45 Lab Results 12/10/17 12/10/17 12/10/17 Range/Units 07:45 07:45 07:45 WBC 6.6 (3.8-10.6) k/uL RBC 3.85 (3.80-5.40) m/uL Hgb 11.6 (11.4-16.0) gm/dL Hct 36.8 (34.0-46.0) % MCV 95.7 (80.0-100.0) fL MCH 30.2 (25.0-35.0) pg MCHC 31.5 (31.0-37.0) g/dL RDW 13.2 (11.5-15.5) % Plt Count 244 (150-450) k/uL Neutrophils % 69 % Lymphocytes % 15 % Monocytes % 6 % Eosinophils % 7 % Basophils % 1 % Neutrophils # 4.5 (1.3-7.7) k/uL Lymphocytes # 1.0 (1.0-4.8) k/uL Monocytes # 0.4 (0-1.0) k/uL Eosinophils # 0.4 (0-0.7) k/uL Basophils # 0.1 (0-0.2) k/uL PT (9.0-12.0) sec INR (<1.2) APTT (22.0-30.0) sec D-Dimer (<0.60) mg/L FEU Sodium 141 (137-145) mmol/L Potassium 4.5 (3.5-5.1) mmol/L Chloride 109 H (98-107) mmol/L Carbon Dioxide 21 L (22-30) mmol/L Anion Gap 11 mmol/L BUN 25 H (7-17) mg/dL Creatinine 1.09 H (0.52-1.04) mg/dL Est GFR (MDRD) Af Amer 58 (>60 ml/min/1.73 sqM) Est GFR (MDRD) Non-Af 48 (>60 ml/min/1.73 sqM) Glucose 81 (74-99) mg/dL Calcium 9.2 (8.4-10.2) mg/dL Total Bilirubin 0.4 (0.2-1.3) mg/dL AST 21 (14-36) U/L ALT 21 (9-52) U/L Alkaline Phosphatase 87 (38-126) U/L Total Creatine Kinase 92 (30-135) U/L CK-MB (CK-2) 1.6 (0.0-2.4) ng/mL CK-MB (CK-2) Rel Index 1.7 Troponin I <0.012 (0.000-0.034) ng/mL NT-Pro-B Natriuret Pep pg/mL Total Protein 6.2 L (6.3-8.2) g/dL Albumin 3.6 (3.5-5.0) g/dL Urine Color Urine Appearance (Clear) Urine pH (5.0-8.0) Ur Specific [place] (1.001-1.035) Urine Protein (Negative) Urine Glucose (UA) (Negative) Urine Ketones (Negative) Urine Blood (Negative) Urine Nitrite (Negative) Urine Bilirubin (Negative) Urine Urobilinogen (<2.0) mg/dL Ur Leukocyte Esterase (Negative) 12/10/17 12/10/17 12/10/17 Range/Units 07:45 07:45 11:12 WBC (3.8-10.6) k/uL RBC (3.80-5.40) m/uL Hgb (11.4-16.0) gm/dL Hct (34.0-46.0) % MCV (80.0-100.0) fL MCH (25.0-35.0) pg MCHC (31.0-37.0) g/dL RDW (11.5-15.5) % Plt Count (150-450) k/uL Neutrophils % % Lymphocytes % % Monocytes % % Eosinophils % % Basophils % % Neutrophils # (1.3-7.7) k/uL Lymphocytes # (1.0-4.8) k/uL Monocytes # (0-1.0) k/uL Eosinophils # (0-0.7) k/uL Basophils # (0-0.2) k/uL PT 10.6 (9.0-12.0) sec INR 1.1 (<1.2) APTT 24.0 (22.0-30.0) sec D-Dimer 1.63 H (<0.60) mg/L FEU Sodium (137-145) mmol/L Potassium (3.5-5.1) mmol/L Chloride (98-107) mmol/L Carbon Dioxide (22-30) mmol/L Anion Gap mmol/L BUN (7-17) mg/dL Creatinine (0.52-1.04) mg/dL Est GFR (MDRD) Af Amer (>60 ml/min/1.73 sqM) Est GFR (MDRD) Non-Af (>60 ml/min/1.73 sqM) Glucose (74-99) mg/dL Calcium (8.4-10.2) mg/dL Total Bilirubin (0.2-1.3) mg/dL AST (14-36) U/L ALT (9-52) U/L Alkaline Phosphatase (38-126) U/L Total Creatine Kinase (30-135) U/L CK-MB (CK-2) (0.0-2.4) ng/mL CK-MB (CK-2) Rel Index Troponin I (0.000-0.034) ng/mL NT-Pro-B Natriuret Pep 816 pg/mL Total Protein (6.3-8.2) g/dL Albumin (3.5-5.0) g/dL Urine Color Light Yellow Urine Appearance Clear (Clear) Urine pH 6.5 (5.0-8.0) Ur Specific [place] 1.018 (1.001-1.035) Urine Protein Negative (Negative) Urine Glucose (UA) Negative (Negative) Urine Ketones Negative (Negative) Urine Blood Negative (Negative) Urine Nitrite Negative (Negative) Urine Bilirubin Negative (Negative) Urine Urobilinogen <2.0 (<2.0) mg/dL Ur Leukocyte Esterase Negative (Negative) - Radiology Data Radiology results: report reviewed (Computed tomography scan of the chest shows possible chronic emboli with incomplete obstruction tiny pulmonary artery right upper lobe. No acute emboli or complete obstruction visualized.), image reviewed (Two-view chest x-ray shows no acute process.) Disposition Clinical Impression: Chronic pulmonary embolism Disposition: HOME SELF-CARE Condition: Stable Instructions: Pulmonary Embolism (DC) Additional Instructions: Please follow-up with primary care physician and pulmonary this week. Pulmonary doctor review computed tomography scan. Return for difficulty breathing, low oxygen levels, bleeding, worsening symptoms or any other concerns. Prescriptions: Apixaban [Eliquis] 5 mg PO BID #74 tab Referrals: Jamel Wolfe MD [Primary Care Provider] - 1-2 days Time of Disposition: 12:09
[2017-12-10 07:59] LABS: Basophils # (A) 0.1 k/uL (0-0.2); Basophils % (A) 1 %; Eosinophils # (A) 0.4 k/uL (0-0.7); Eosinophils % (A) 7 %; HCT 36.8 % (34.0-46.0); HGB 11.6 gm/dL (11.4-16.0); Lymphocytes % (A) 15 %; MCH 30.2 pg (25.0-35.0); MCHC 31.5 g/dL (31.0-37.0); MCV 95.7 fL (80.0-100.0); Mean Platelet Volume 7.4; Monocytes # (A) 0.4 k/uL (0-1.0); Monocytes % (A) 6 %; Neutrophils # (A) 4.5 k/uL (1.3-7.7); Neutrophils % (A) 69 %; Platelet Count 244 k/uL (150-450); RBC 3.85 m/uL (3.80-5.40); RDW 13.2 % (11.5-15.5); WBC 6.6 k/uL (3.8-10.6)
--- NOTE | 2017-12-10 08:17 | XR ---
EXAMINATION TYPE: XR chest 2V DATE OF EXAM: 12/10/2017 COMPARISON: 06/16/2017 INDICATION: Difficulty breathing short of breath nausea vomiting TECHNIQUE: Frontal and lateral views of the chest are obtained. FINDINGS: The heart size is normal. The pulmonary vasculature is normal. The lungs are clear. Some stable tracheal deviation is evident. The patient is rotated towards the r ight. Some hyperinflation and increased AP diameter is noted. IMPRESSION: 1. No acute pulmonary process.
[2017-12-10 08:18] LABS: Albumin 3.6 g/dL (3.5-5.0); Calcium 9.2 mg/dL (8.4-10.2); Potassium 4.5 mmol/L (3.5-5.1); Total Bilirubin 0.4 mg/dL (0.2-1.3); Total Protein 6.2 g/dL (6.3-8.2)
[2017-12-10 08:23] LABS: D-Dimer 1.63 mg/L FEU (<0.60); INR 1.1 (<1.2); Prothrombin Time 10.6 sec (9.0-12.0)
[2017-12-10 08:32] LABS: Creatine Kinase 92 U/L (30-135)
[2017-12-10] MEDS ORDERED: SODIUM CHLORIDE 0.9% 500 ML IV STA (08:32)
[2017-12-10] MEDS ORDERED: RX INFO: IV CONTRAST WAS GIVEN 1 EACH MISC MISCELLANE PRN (08:33)
[2017-12-10 08:45] LABS: Creatine Kinase MB 1.6 ng/mL (0.0-2.4); Troponin I <0.012 ng/mL (0.000-0.034)
--- NOTE | 2017-12-10 09:23 | CT ---
CT CHEST FOR PULMONARY EMBOLISM. EXAMINATION TYPE: CT angio chest DATE OF EXAM: 12/10/2017 INDICATION: SOB, dizziness CT DLP: 276.8 mGycm, Automated exposure control for dose reduction was used. CONTRAST: Patient injected with 80 mL of Visipaque 320. COMPARISON: 06/20/2010 TECHNIQUE: CT of the chest is performed on a spiral scan at 2 mm thick sections. Study is performed with intravenous contrast timed for evaluation for pulmonary embolism. This will limit additional po rtions of the evaluation. 3-D MIP images reconstructed by the technologist are reviewed on the compu ter in the coronal and sagittal planes. FINDINGS: There is a small vessel with partial obstruction extending into the right upper lobe. Series 4 image 46. This is incomplete obstruction.. Small pulmonary embolism at this level is not excluded. Others s ome mixing artifact present within pulmonary veins in this region as well. Additional acute pulmonary emboli are not identified. No mediastinal or hilar adenopathy enlarged by CT criteria is evident. The ascending aorta diameter at the level of the main pulmonary artery is 4.1 cm. The main pulmonary artery diameter at the bifur cation is 3.2 cm. Lung windows are clear. Limited CT section through the upper abdomen are unremarkable. IMPRESSIONS: 1. There may be a chronic embolus with incomplete obstruction of a tiny pulmonary artery into the rig ht upper lobe. 2. Acute pulmonary emboli with complete obstruction of a vessel is not identified.
[2017-12-10 09:32] VITALS: RESP 18
[2017-12-10 11:21] LABS: Appearance,Urine Clear (Clear); Bilirubin,Urine Negative (Negative); Blood,Urine Negative (Negative); Color,Urine Light Yellow; Glucose,Urine (UA) Negative (Negative); Ketones,Urine Negative (Negative); Leukocyte Esterase,Urine Negative (Negative); Nitrite,Urine Negative (Negative); PH, Urine 6.5 (5.0-8.0); Protein,Urine Negative (Negative); Specific Gravity,Urine 1.018 (1.001-1.035); Urobilinogen,Urine <2.0 mg/dL (<2.0)
[2017-12-10 11:40] VITALS: BP 156/92; PULSE 62
[2017-12-10] MEDS ORDERED: APIXABAN 5 MG TAB PO STA (12:06)
== END 2017-12-10 12:45 | disposition home or self-care (01) ==
LOC: EC 06:43
DX: I27.82 Chronic pulmonary embolism (principal); R40.2142 Coma scale, eyes open, spontaneous, at arrival to emergency department; R40.2252 Coma scale, best verbal response, oriented, at arrival to emergency department; R40.2362 Coma scale, best motor response, obeys commands, at arrival to emergency department; Z86.73 Personal history of transient ischemic attack (TIA), and cerebral infarction without residual deficits; Z79.899 Other long term (current) drug therapy; Z91.018 Allergy to other foods
CPT/HCPCS: 36415; 93005; 85379; 83880; 80053; 82550; 82553; 84484; 85025; 85610; 85730; 81003; 71046; 71275; 99285; 96360; 96361 ×2; Q9967

== ENCOUNTER 2018-12-10 21:02 | Emergency (ER) | payer MEDICARE ==
[2018-12-10 21:12] VITALS: RESP 18
[2018-12-10] MEDS ORDERED: ACETAMINOPHEN TAB 325 MG TAB PO STA (21:40)
[2018-12-10 22:46] LABS: Appearance,Urine Cloudy (Clear); Bacteria,Urine Rare /hpf; Bilirubin,Urine Negative (Negative); Blood,Urine Negative (Negative); Color,Urine Yellow; Glucose,Urine (UA) Negative (Negative); Ketones,Urine Negative (Negative); Leukocyte Esterase,Urine Large (Negative); Mucus,Urine Rare /hpf; Nitrite,Urine Negative (Negative); PH, Urine 5.5 (5.0-8.0); Protein,Urine Trace (Negative); RBC,Urine 3 /hpf (0-5); Specific Gravity,Urine 1.023 (1.001-1.035); Squamous Epithelial Cell,Urine 9 /hpf (0-4); Urobilinogen,Urine <2.0 mg/dL (<2.0)
[2018-12-10 22:53] LABS: Albumin 4.2 g/dL (3.5-5.0); Potassium 4.3 mmol/L (3.5-5.1); Total Bilirubin 0.4 mg/dL (0.2-1.3); Total Protein 7.6 g/dL (6.3-8.2)
[2018-12-10 22:57] LABS: Basophils # (A) 0.1 k/uL (0-0.2); Basophils % (A) 0 %; Eosinophils # (A) 0.5 k/uL (0-0.7); Eosinophils % (A) 4 %; HCT 37.2 % (34.0-46.0); Lymphocytes # (A) 1.7 k/uL (1.0-4.8); Lymphocytes % (A) 13 %; MCH 29.8 pg (25.0-35.0); MCHC 32.2 g/dL (31.0-37.0); MCV 92.5 fL (80.0-100.0); Mean Platelet Volume 7.6; Monocytes # (A) 0.8 k/uL (0-1.0); Monocytes % (A) 6 %; Neutrophils # (A) 9.6 k/uL (1.3-7.7); Neutrophils % (A) 75 %; Platelet Count 259 k/uL (150-450); RBC 4.03 m/uL (3.80-5.40); RDW 13.7 % (11.5-15.5); WBC 12.7 k/uL (3.8-10.6)
--- NOTE | 2018-12-10 23:04 | XR ---
EXAM: XR Abdomen, 2 Views CLINICAL HISTORY: ITS.REASON XR Reason: Abdominal pain TECHNIQUE: Frontal view of the abdomen/pelvis with upright view of the abdomen. COMPARISON: No relevant prior studies available. FINDINGS: Intraperitoneal space: No free air. Gastrointestinal tract: Unremarkable. No dilation. Bones/joints: Unremarkable. IMPRESSION: Normal abdominal x-rays.
--- NOTE | 2018-12-10 23:16 | CT ---
EXAM: CT Head Without Intravenous Contrast CLINICAL HISTORY: ITS.REASON CT Reason: Fell hit top of head TECHNIQUE: Axial computed tomography images of the head/brain without intravenous contrast. CTDI is 45 mGy and DLP is 1033 mGy-cm. This CT exam was performed using one or more of the following dose reduction techniques: automated exposure control, adjustment of the mA and/or kV according to patient size, and/or use of iterative reconstruction technique. COMPARISON: No relevant prior studies available. FINDINGS: Brain: No hemorrhage. No edema. Ventricles: Unremarkable. No ventriculomegaly. Bones/joints: No acute fracture. Soft tissues: Unremarkable. Sinuses: No fluid levels. Mastoid air cells: Unremarkable as visualized. No mastoid effusion. IMPRESSION: No acute intracranial findings EXAM: CT Cervical Spine Without Intravenous Contrast CLINICAL HISTORY: ITS.REASON CT Reason: Fell hit top of head TECHNIQUE: Axial computed tomography images of the cervical spine without intravenous contrast. CTDI is 9 mGy and DLP is 280 mGy-cm. This CT exam was performed using one or more of the following dose reduction techniques: automated exposure control, adjustment of the mA and/or kV according to patient size, and/or use of iterative reconstruction technique. COMPARISON: No relevant prior studies available. FINDINGS: Vertebrae: No acute fracture. Discs/spinal canal/neural foramina: No suspicious findings. Soft tissues: Unremarkable. IMPRESSION: No acute findings.
[2018-12-10 23:35] VITALS: BP 135/82; PULSE 98; TEMP 99.5
--- NOTE | 2018-12-11 00:15 | XR ---
EXAM: XR Chest, 2 Views CLINICAL HISTORY: ITS.REASON XR Reason: Pain TECHNIQUE: Frontal and lateral views of the chest. COMPARISON: No relevant prior studies available. FINDINGS: Lungs: Unremarkable. No consolidation. Pleural space: Unremarkable. No pneumothorax. Heart: Unremarkable. No cardiomegaly. Mediastinum: Unremarkable. Bones/joints: No acute fracture. IMPRESSION: No acute findings.
--- NOTE | 2018-12-11 00:28 | ED ---
General Adult HPI - General Chief complaint: Fall Stated complaint: Fall Time Seen by Provider: 12/10/18 21:26 Source: patient, family, EMS, RN notes reviewed Mode of arrival: EMS Limitations: no limitations - History of Present Illness Initial comments: Chief complaint history of present illness this is an 88-year-old female who reports she had stumbled today at urgent [facility] area falling backwards bumping her head. Denies any loss of consciousness. Patient also complains of a cough the causes of muscular skeletal discomfort to her abdomen. The patient's alert answer questions appropriately. - Related Data Home Medications Medication Instructions Recorded Confirmed Sertraline HCl [Zoloft] 12.5 mg PO DAILY 04/12/17 12/10/18 ALPRAZolam [Xanax] 0.25 mg PO DAILY PRN 12/10/18 12/10/18 Latanoprost [Xalatan 0.005%] 1 drop BOTH EYES HS 12/10/18 12/10/18 Allergies Allergy/AdvReac Type Severity Reaction Status Date / Time coconut oil Allergy Unknown Verified 12/10/18 21:30 Review of Systems ROS Statement: Those systems with pertinent positive or pertinent negative responses have been documented in the HPI. Review of systems. Currently no headache no stiff neck no complaint of visual acuity changes. She has a dry cough and complains of abdominal muscle discomfort when she coughs. Denies nausea vomiting or diarrhea. Denies any other injuries to the rest of her body. Full trauma examination was negative. All systems were reviewed. Patient's past medical problems significant for TIA, dementia, glaucoma, hypertension, OA, she reportedly had a left fem-pop bypass, previous pelvic fracture. Patient's surgeries include tonsils, adenoids, bladder, joint replacement i.e. total left knee. Patient reports ALLERGY to coconut oil. Family history noncontributory nonsmoker nondrinker. ROS Other: All systems not noted in ROS Statement are negative. Past Medical History Past Medical History: CVA/TIA, Dementia, Eye Disorder, Hypertension, Osteoarthritis (OA), Vascular Disorder Additional Past Medical History / Comment(s): pelvic fracture right side, arthritis bilateral hands and feet, AAA-small, glaucoma R eye, TIA in 2009, diverticular dx/benign polyps History of Any Multi-Drug Resistant Organisms: None Reported Past Surgical History: Appendectomy, Cholecystectomy, Joint Replacement, Tonsillectomy Additional Past Surgical History / Comment(s): left total knee surgery, colonoscopy/polypectomy, bilateral cataract removal, surgery for glaucoma. Past Anesthesia/Blood Transfusion Reactions: No Reported Reaction, Motion Sickness Past Psychological History: Anxiety Smoking Status: Never smoker Past Alcohol Use History: None Reported Past Drug Use History: None Reported - Past Family History Father Family Medical History: CVA/TIA Additional Family Medical History / Comment(s): Father of a CVA at the age of 65yrs. Mother Family Medical History: Dementia, Eye Disorder Additional Family Medical History / Comment(s): Mother at the age of 96yrs. She was healthy until age 90 when she went blind and had dementia. General Exam - General Exam Comments Initial Comments: General: The patient is awake and alert, has a history of dementia but answers questions appropriately. Slightly hard of hearing. Reportedly stumbled and fell bumping her head.. Vital signs show temperature 99.4 pulse 90 respiratory rate 18 pulse ox 99% room air initial blood pressure 163/98.. Eye: Pupils are equal, round and reactive to light, extra-ocular movements are intact ; there is normal conjunctiva bilaterally. No signs of icterus. Ears, nose, mouth and throat: There are moist mucous membranes and no oral lesions. Patient has false teeth Neck: The neck is supple, there is no tenderness. Cardiovascular: There is a regular rate and rhythm. No murmur, rub or gallop is appreciated. Respiratory: Lungs are clear to auscultation, respirations are non-labored, breath sounds are equal. No wheezes, stridor, rales, or rhonchi. Gastrointestinal: Normoactive bowel sounds, nontender to deep palpation, no organomegaly. No rebound or referred pain. Patient reports when she coughs it feels as though her stomach muscles hurt. Back: There is no tenderness to palpation in the midline. There is no obvious deformity. No rashes noted. Musculoskeletal: Normal ROM, no tenderness, There is no pedal edema. There is no calf tenderness or swelling.. Neurological: No focal or lateralizing findings. Per family past history with TIA with no other apparent problems since that time. Patient does have dementia. Skin: Skin is warm and dry and no rashes or lesions are noted. Psychiatric: Cooperative, appropriate mood & affect, normal judgment. Limitations: no limitations Course Vital Signs 02/26/19 02/26/19 21:05 23:33 Temperature 99.4 F 99.5 F Pulse Rate 90 98 Respiratory 18 18 Rate Blood Pressure 163/98 135/82 O2 Sat by Pulse 99 97 Oximetry Medical Decision Making - Medical Decision Making Medical decision making; is a 8-year-old female who stumbled and fell bumping her head. Vital signs remained stable. The patient CAT scan of the brain and cervical spine were done and reviewed. Radiologist's final impression is no acute intracranial findings. CT of the cervical spine was reviewed his final impression is no acute findings. As read by Dr. faustin Due to the patient's complaint of abdominal discomfort x-rays of the abdomen were done and the radiologist's findings are; no free air, unremarkable no dilatation of the gastrointestinal tract. Bones are unremarkable. Impression; normal abdominal x-rays. As read by Dr. Faustin Chest x-ray was done because of the patient's persistent cough. Radiologist's interpretation is no consolidation, no pneumothorax. No cardiomegaly. Mediastinum is unremarkable. Bones and joints no acute fracture. Impression no acute findings. As read by Dr. Faustin. This time the patient's been cleared to return to her facility. The family was told if she could stay with someone this evening it might be better. They'll make this decision on their own. Obvious caution with changing position being careful where she walks. History of any difficulties or problems she is to return emergency room otherwise follow-up with family physician. - Lab Data Result diagrams: 12/10/18 22:26 12/10/18: Lab Results 12/10/18 12/10/18 12/10/18 Range/Units 22:26 22: 22: WBC 12.7 H (3.8-10.6) k/uL RBC 4.03 (3.80-5.40) m/uL Hgb 12.0 (11.4-16.0) gm/dL Hct 37.2 (34.0-46.0) % MCV 92.5 (80.0-100.0) fL MCH 29.8 (25.0-35.0) pg MCHC 32.2 (31.0-37.0) g/dL RDW 13.7 (11.5-15.5) % Plt Count 259 (150-450) k/uL Neutrophils % 75 % Lymphocytes % 13 % Monocytes % 6 % Eosinophils % 4 % Basophils % 0 % Neutrophils # 9.6 H (1.3-7.7) k/uL Lymphocytes # 1.7 (1.0-4.8) k/uL Monocytes # 0.8 (0-1.0) k/uL Eosinophils # 0.5 (0-0.7) k/uL Basophils # 0.1 (0-0.2) k/uL Sodium 139 (137-145) mmol/L Potassium 4.3 (3.5-5.1) mmol/L Chloride 104 (98-107) mmol/L Carbon Dioxide 25 (22-30) mmol/L Anion Gap 10 mmol/L BUN 29 H (7-17) mg/dL Creatinine 1.08 H (0.52-1.04) mg/dL Est GFR (CKD-EPI)AfAm 53 (>60 ml/min/1.73 sqM) Est GFR (CKD-EPI)NonAf 46 (>60 ml/min/1.73 sqM) Glucose 100 H (74-99) mg/dL Calcium 9.0 (8.4-10.2) mg/dL Total Bilirubin 0.4 (0.2-1.3) mg/dL AST 28 (14-36) U/L ALT 24 (9-52) U/L Alkaline Phosphatase 98 (38-126) U/L Total Protein 7.6 (6.3-8.2) g/dL Albumin 4.2 (3.5-5.0) g/dL Urine Color Yellow Urine Appearance Cloudy H (Clear) Urine pH 5.5 (5.0-8.0) Ur Specific [place] 1.023 (1.001-1.035) Urine Protein Trace H (Negative) Urine Glucose (UA) Negative (Negative) Urine Ketones Negative (Negative) Urine Blood Negative (Negative) Urine Nitrite Negative (Negative) Urine Bilirubin Negative (Negative) Urine Urobilinogen <2.0 (<2.0) mg/dL Ur Leukocyte Esterase Large H (Negative) Urine RBC 3 (0-5) /hpf Urine WBC 6 H (0-5) /hpf Ur Squamous Epith Cells 9 H (0-4) /hpf Urine Bacteria Rare H (None) /hpf Urine Mucus Rare H (None) /hpf Disposition Clinical Impression: Contusion of scalp, Fall Disposition: HOME SELF-CARE Condition: Fair Instructions (If sedation given, give patient instructions): Fall Prevention for Older Adults (ED) Additional Instructions: Return emergency room should she have any difficulties or problems. Change positions slowly. Follow-up with family physician as needed. Is patient prescribed a controlled substance at d/c from ED?: No Referrals: Jamel Wolfe MD [Primary Care Provider] - 1-2 days
== END 2018-12-11 00:34 | disposition home or self-care (01) ==
LOC: EC 21:02
DX: S00.03XA Contusion of scalp, initial encounter (principal); R05 Cough; F03.90 Unspecified dementia, unspecified severity, without behavioral disturbance, psychotic disturbance, mood disturbance, and anxiety; H91.90 Unspecified hearing loss, unspecified ear; M19.041 Primary osteoarthritis, right hand; M19.042 Primary osteoarthritis, left hand; M19.071 Primary osteoarthritis, right ankle and foot; M19.072 Primary osteoarthritis, left ankle and foot; F41.9 Anxiety disorder, unspecified; Z91.018 Allergy to other foods; Z79.899 Other long term (current) drug therapy; Z86.73 Personal history of transient ischemic attack (TIA), and cerebral infarction without residual deficits; Z86.69 Personal history of other diseases of the nervous system and sense organs; Z86.010 Personal history of colon polyps; Z96.652 Presence of left artificial knee joint; Z98.890 Other specified postprocedural states; Z81.8 Family history of other mental and behavioral disorders; W01.190A Fall on same level from slipping, tripping and stumbling with subsequent striking against furniture, initial encounter; Y92.099 Unspecified place in other non-institutional residence as the place of occurrence of the external cause
CPT/HCPCS: 36415; 70450; 71046; 72125; 74019; 80053; 81001; 85025; 87086; 99284

== ENCOUNTER 2019-01-29 01:17 | Observation (INO) | payer MEDICARE ==
[2019-01-29] MEDS ORDERED: ACETAMINOPHEN TAB 325 MG TAB PO STA (01:48)
[2019-01-29] MEDS ORDERED: ONDANSETRON 4 MG/2 ML VIAL IVP STA (02:41)
--- NOTE | 2019-01-29 02:44 | ED ---
Nausea/Vomiting/Diarrhea HPI - General Chief complaint: Nausea/Vomiting/Diarrhea Stated complaint: Nausea,Vomiting Time Seen by Provider: 01/29/19 01:22 Source: patient, EMS Mode of arrival: EMS Limitations: no limitations - History of Present Illness Initial comments: 88-year-old female patient with past medical history significant for CVA, dementia, hypertension, appendectomy presents to the emergency department today for evaluation of vomiting and diarrhea. Family member states the patient had multiple episodes of vomiting and he believes that she did have an episode of diarrhea at home this evening. Patient states she started to feel nauseated in the afternoon and symptoms progressively worsened as the night wore on. Patient denies any abdominal pain, chest pain, or shortness of breath. Patient denies fever or chills. States that she feels unwell. She is unsure if she is having any urinary symptoms. Denies any back pain. Patient denies any recent rash, constipation, back pain, numbness, tingling, dizziness, weakness, headache, v isual changes, or any other complaints. - Related Data Home Medications Medication Instructions Recorded Confirmed Sertraline HCl [Zoloft] 12.5 mg PO DAILY 04/12/17 12/10/18 ALPRAZolam [Xanax] 0.25 mg PO DAILY PRN 12/10/18 12/10/18 Latanoprost [Xalatan 0.005%] 1 drop BOTH EYES HS 12/10/18 12/10/18 Allergies Allergy/AdvReac Type Severity Reaction Status Date / Time coconut oil Allergy Unknown Verified 12/10/18 21:30 Review of Systems ROS Statement: Those systems with pertinent positive or pertinent negative responses have been documented in the HPI. ROS Other: All systems not noted in ROS Statement are negative. Past Medical History Past Medical History: CVA/TIA, Dementia, Eye Disorder, Hypertension, Osteo arthritis (OA), Vascular Disorder Additional Past Medical History / Comment(s): pelvic fracture right side, arthritis bilateral hands and feet, AAA-small, glaucoma R eye, TIA in 2009, diverticular dx/benign polyps History of Any Multi-Drug Resistant Organisms: None Reported Past Surgical History: Appendectomy, Cholecystectomy, Joint Replacement, Tonsillectomy Additional Past Surgical History / Comment(s): left total knee surgery, colonoscopy/polypectomy, bilateral cataract removal, surgery for glaucoma. Past Anesthesia/Blood Transfusion Reactions: No Reported Reaction, Motion Sickness Past Psychological History: Anxiety Smoking Status: Never smoker Past Alcohol Use History: None Reported Past Drug Use History: None Reported - Past Family History Father Family Medical History: CVA/TIA Additional Family Medical History / Comment(s): Father of a CVA at the age of 65yrs. Mother Family Medical History: Dementia, Eye Disorder Additional Family Medical History / Comment(s): Mother at the age of 96yrs. She was healthy until age 90 when she went blind and had dementia. General Exam Limitations: no limitations General appearance: alert, in no apparent distress, other (This is a well- developed, well-nourished elderly female patient in no acute distress. Vital signs upon presentation are temperature 100.3F, pulse 111, respirations 16, blood pressure 147/79, pulse ox 97% on room air.) Eye exam: Present: normal appearance, PERRL, EOMI. Absent: scleral icterus, conjunctival injection, periorbital swelling ENT exam: Present: normal exam, normal oropharynx, mucous membranes moist Respiratory exam: Present: normal lung sounds bilaterally. Absent: respiratory distress, wheezes, rales, rhonchi, stridor Cardiovascular Exam: Present: normal rhythm, tachycardia, normal heart sounds. Absent: systolic murmur, diastolic murmur, rubs, gallop, clicks GI/Abdominal exam: Present: soft, tenderness (Right lower quadrant tenderness), normal bowel sounds. Absent: distended, guarding, rebound, rigid Neurological exam: Present: alert, oriented X3, CN II-XII intact Psychiatric exam: Present: normal affect, normal mood Skin exam: Present: warm, dry, intact, normal color. Absent: rash Course Vital Signs 01/29/19 01:29 Temperature 100.3 F H Pulse Rate 111 H Respiratory 16 Rate Blood Pressure 147/79 O2 Sat by Pulse 97 Oximetry Medical Decision Making - Medical Decision Making 88-year-old female patient presents to the emergency department today for evaluation of vomiting and diarrhea. Physical examination did reveal right lower quadrant tenderness. Labs reviewed and revealed normal white blood cell count. Elevated potassium of 5.6, elevated BUN at 31. CT abdomen and pelvis showed evidence of enteritis but no other abnormalities. Patient was given 2 doses of Zofran once in EMS and once here in the emergency department, we did attempt oral fluids, patient did not tolerate this and continued vomiting. Patient does live by herself and does have dementia. She'll be admitted for observation for dehydration and further monitoring. Did discuss the case with on-call [facility] [place] physician Dr. Cole who accepts patient. - Lab Data Result diagrams: 01/29/19 01:43 01/29/19 01:43 Lab Results 01/29/19 01/29/19 01/29/19 Range/Units 01:43 01:43 01:43 WBC 9.6 (3.8-10.6) k/uL RBC 4.07 (3.80-5.40) m/uL Hgb 11.7 (11.4-16.0) gm/dL Hct 37.7 (34.0-46.0) % MCV 92.6 (80.0-100.0) fL MCH 28.8 (25.0-35.0) pg MCHC 31.2 (31.0-37.0) g/dL RDW 14.0 (11.5-15.5) % Plt Count 268 (150-450) k/uL Neutrophils % 81 % Lymphocytes % 12 % Monocytes % 3 % Eosinophils % 3 % Basophils % 0 % Neutrophils # 7.7 (1.3-7.7) k/uL Lymphocytes # 1.2 (1.0-4.8) k/uL Monocytes # 0.3 (0-1.0) k/uL Eosinophils # 0.3 (0-0.7) k/uL Basophils # 0.0 (0-0.2) k/uL PT (9.0-12.0) sec INR (<1.2) APTT (22.0-30.0) sec Sodium 138 (137-145) mmol/L Potassium 5.6 H (3.5-5.1) mmol/L Chloride 105 (98-107) mmol/L Carbon Dioxide 26 (22-30) mmol/L Anion Gap 7 mmol/L BUN 31 H (7-17) mg/dL Creatinine 1.01 (0.52-1.04) mg/dL Est GFR (CKD-EPI)AfAm 58 (>60 ml/min/1.73 sqM) Est GFR (CKD-EPI)NonAf 50 (>60 ml/min/1.73 sqM) Glucose 114 H (74-99) mg/dL Plasma Lactic Acid [place] (0.7-2.0) mmol/L Calcium 8.8 (8.4-10.2) mg/dL Total Bilirubin 1.1 (0.2-1.3) mg/dL AST 44 H (14-36) U/L ALT 20 (9-52) U/L Alkaline Phosphatase 75 (38-126) U/L Troponin I (0.000-0.034) ng/mL Total Protein 7.2 (6.3-8.2) g/dL Albumin 4.3 (3.5-5.0) g/dL Urine Color Urine Appearance (Clear) Urine pH (5.0-8.0) Ur Specific [place] (1.001-1.035) Urine Protein (Negative) Urine Glucose (UA) (Negative) Urine Ketones (Negative) Urine Blood (Negative) Urine Nitrite (Negative) Urine Bilirubin (Negative) Urine Urobilinogen (<2.0) mg/dL Ur Leukocyte Esterase (Negative) Influenza Type A RNA Not Detected (Not Detectd) Influenza Type B (PCR) Not Detected (Not Detectd) 01/29/19 01/29/19 01/29/19 Range/Units 01:43 01:43 01:43 WBC (3.8-10.6) k/uL RBC (3.80-5.40) m/uL Hgb (11.4-16.0) gm/dL Hct (34.0-46.0) % MCV (80.0-100.0) fL MCH (25.0-35.0) pg MCHC (31.0-37.0) g/dL RDW (11.5-15.5) % Plt Count (150-450) k/uL Neutrophils % % Lymphocytes % % Monocytes % % Eosinophils % % Basophils % % Neutrophils # (1.3-7.7) k/uL Lymphocytes # (1.0-4.8) k/uL Monocytes # (0-1.0) k/uL Eosinophils # (0-0.7) k/uL Basophils # (0-0.2) k/uL PT 10.3 (9.0-12.0) sec INR 1.0 (<1.2) APTT 22.2 (22.0-30.0) sec Sodium (137-145) mmol/L Potassium (3.5-5.1) mmol/L Chloride (98-107) mmol/L Carbon Dioxide (22-30) mmol/L Anion Gap mmol/L BUN (7-17) mg/dL Creatinine (0.52-1.04) mg/dL Est GFR (CKD-EPI)AfAm (>60 ml/min/1.73 sqM) Est GFR (CKD-EPI)NonAf (>60 ml/min/1.73 sqM) Glucose (74-99) mg/dL Plasma Lactic Acid [place] 1.0 (0.7-2.0) mmol/L Calcium (8.4-10.2) mg/dL Total Bilirubin (0.2-1.3) mg/dL AST (14-36) U/L ALT (9-52) U/L Alkaline Phosphatase (38-126) U/L Troponin I <0.012 (0.000-0.034) ng/mL Total Protein (6.3-8.2) g/dL Albumin (3.5-5.0) g/dL Urine Color Urine Appearance (Clear) Urine pH (5.0-8.0) Ur Specific [place] (1.001-1.035) Urine Protein (Negative) Urine Glucose (UA) (Negative) Urine Ketones (Negative) Urine Blood (Negative) Urine Nitrite (Negative) Urine Bilirubin (Negative) Urine Urobilinogen (<2.0) mg/dL Ur Leukocyte Esterase (Negative) Influenza Type A RNA (Not Detectd) Influenza Type B (PCR) (Not Detectd) 01/29/19 Range/Units 03:11 WBC (3.8-10.6) k/uL RBC (3.80-5.40) m/uL Hgb (11.4-16.0) gm/dL Hct (34.0-46.0) % MCV (80.0-100.0) fL MCH (25.0-35.0) pg MCHC (31.0-37.0) g/dL RDW (11.5-15.5) % Plt Count (150-450) k/uL Neutrophils % % Lymphocytes % % Monocytes % % Eosinophils % % Basophils % % Neutrophils # (1.3-7.7) k/uL Lymphocytes # (1.0-4.8) k/uL Monocytes # (0-1.0) k/uL Eosinophils # (0-0.7) k/uL Basophils # (0-0.2) k/uL PT (9.0-12.0) sec INR (<1.2) APTT (22.0-30.0) sec Sodium (137-145) mmol/L Potassium (3.5-5.1) mmol/L Chloride (98-107) mmol/L Carbon Dioxide (22-30) mmol/L Anion Gap mmol/L BUN (7-17) mg/dL Creatinine (0.52-1.04) mg/dL Est GFR (CKD-EPI)AfAm (>60 ml/min/1.73 sqM) Est GFR (CKD-EPI)NonAf (>60 ml/min/1.73 sqM) Glucose (74-99) mg/dL Plasma Lactic Acid [place] (0.7-2.0) mmol/L Calcium (8.4-10.2) mg/dL Total Bilirubin (0.2-1.3) mg/dL AST (14-36) U/L ALT (9-52) U/L Alkaline Phosphatase (38-126) U/L Troponin I (0.000-0.034) ng/mL Total Protein (6.3-8.2) g/dL Albumin (3.5-5.0) g/dL Urine Color Light Yellow Urine Appearance Clear (Clear) Urine pH 7.0 (5.0-8.0) Ur Specific [place] 1.017 (1.001-1.035) Urine Protein Trace H (Negative) Urine Glucose (UA) Negative (Negative) Urine Ketones Negative (Negative) Urine Blood Negative (Negative) Urine Nitrite Negative (Negative) Urine Bilirubin Negative (Negative) Urine Urobilinogen <2.0 (<2.0) mg/dL Ur Leukocyte Esterase Negative (Negative) Influenza Type A RNA (Not Detectd) Influenza Type B (PCR) (Not Detectd) - EKG Data -: EKG Interpreted by Me EKG Comments: EKG obtained at 02 24 shows sinus tachycardia with frequent PVCs, there is a right bundle branch block and left anterior fascicular block. Ventricular rate is 114, MA interval 156, QRS duration 136, QT 370, QTc 509. - Radiology Data Radiology results: report reviewed, image reviewed CT abdomen and pelvis with contrast was obtained. Report is reviewed in its entirety. Impression by Dr. Wadsworth shows mild wall thickening of the proximal small bowel which could be secondary under distention. Nonspecific enteritis is not excluded. Disposition Clinical Impression: Gastroenteritis, Dehydration Disposition: ADMITTED IP TO THIS [facility] Condition: Serious Referrals: None,Stated [Primary Care Provider] - 1-2 days Decision to Admit Reason: Admit from EC Decision Date: 01/29/19 Decision Time: 04:06
[2019-01-29 02:51] LABS: Basophils % (A) 0 %; Eosinophils # (A) 0.3 k/uL (0-0.7); Eosinophils % (A) 3 %; HCT 37.7 % (34.0-46.0); HGB 11.7 gm/dL (11.4-16.0); Lymphocytes # (A) 1.2 k/uL (1.0-4.8); Lymphocytes % (A) 12 %; MCH 28.8 pg (25.0-35.0); MCHC 31.2 g/dL (31.0-37.0); MCV 92.6 fL (80.0-100.0); Mean Platelet Volume 8.6; Monocytes # (A) 0.3 k/uL (0-1.0); Monocytes % (A) 3 %; Neutrophils # (A) 7.7 k/uL (1.3-7.7); Neutrophils % (A) 81 %; Platelet Count 268 k/uL (150-450); RBC 4.07 m/uL (3.80-5.40); WBC 9.6 k/uL (3.8-10.6)
[2019-01-29] MEDS: SODIUM CHLORIDE 0.9% 500 ML 500 ML IV SCH (02:51)
[2019-01-29 02:53] LABS: Albumin 4.3 g/dL (3.5-5.0); Calcium 8.8 mg/dL (8.4-10.2); Total Bilirubin 1.1 mg/dL (0.2-1.3); Total Protein 7.2 g/dL (6.3-8.2)
[2019-01-29 02:58] LABS: Potassium 5.6 mmol/L (3.5-5.1)
[2019-01-29 03:01] LABS: Partial Thromboplastin Time 22.2 sec (22.0-30.0); Prothrombin Time 10.3 sec (9.0-12.0)
--- NOTE | 2019-01-29 03:38 | CT ---
EXAM: CT Abdomen and Pelvis With Intravenous Contrast CLINICAL HISTORY: Pain TECHNIQUE: Axial computed tomography images of the abdomen and pelvis with intravenous contrast. CTDI is 0.085, 0.085, 9, 8.5 mGy and DLP is 787.4 mGy-cm. This CT exam was performed using one or more of the following dose reduction techniques: automated exposure control, adjustment of the mA and/or kV according to patient size, and/or use of iterative reconstruction technique. COMPARISON: CT abdomen and pelvis dated 03/21/2017 FINDINGS: Lung bases: Unremarkable. No mass. No consolidation. ABDOMEN: Liver: Subcentimeter hypodensities liver, which are too small to characterize. Gallbladder and bile ducts: Unremarkable. Pancreas: Low-density lesion within the body of the pancreas measuring up to 11 mm which is nonspecific. Findings may represent sidebranch IPMN. Spleen: Unremarkable. Adrenals: Unremarkable. Kidneys and ureters: Cysts within the left kidney. Otherwise the kidneys and ureters are unremarkable. Stomach and bowel: Mild wall thickening of the proximal small bowel which may be secondary underdistention. Nonspecific enteritis is not excluded. Noninflamed colonic diverticulosis. PELVIS: Appendix: No findings to suggest acute appendicitis. Bladder: Unremarkable. Reproductive: Uterus is surgically absent. ABDOMEN and PELVIS: Intraperitoneal space: Unremarkable. Bones/joints: Postsurgical changes within the left femur. Remote compression deformity of T12. Anterolisthesis of L4 and L5 likely degenerative. No dislocation. Soft tissues: Unremarkable. Vasculature: Vascular calcifications. Abdominal aortic aneurysm measuring up to 3.7 cm. Lymph nodes: Unremarkable. IMPRESSION: Mild wall thickening of the proximal small bowel which may be secondary underdistention. Nonspecific enteritis is not excluded.
[2019-01-29 03:42] LABS: Appearance,Urine Clear (Clear); Bilirubin,Urine Negative (Negative); Blood,Urine Negative (Negative); Color,Urine Light Yellow; Glucose,Urine (UA) Negative (Negative); Ketones,Urine Negative (Negative); Leukocyte Esterase,Urine Negative (Negative); Nitrite,Urine Negative (Negative); Protein,Urine Trace (Negative); Specific Gravity,Urine 1.017 (1.001-1.035); Urobilinogen,Urine <2.0 mg/dL (<2.0)
[2019-01-29] MEDS ORDERED: NALOXONE 0.4 MG/ML 1 ML VIAL IV PRN (04:01)
[2019-01-29] MEDS ORDERED: ONDANSETRON 4 MG/2 ML VIAL IVP PRN (04:01)
[2019-01-29] MEDS: SODIUM CHLORIDE 0.9% 1,000 ML IV SCH ×2 (04:41→16:49)
[2019-01-29 05:22] VITALS: BMI 26.7
--- NOTE | 2019-01-29 07:04 | P.HPIM ---
History of Present Illness H&P Date: 01/29/19 The patient is an 88 yo F with a PMH of dementia, CVA and HTN who presented to the ED for abdominal pain, nausea, vomiting, and diarrhea. The patient lives independently and reports that her abdominal pain started earlier yesterday as she then became nauseous and had multiple bouts of NBNB vomiting along with some episodes of diarrhea. She reports mild diffuse abdominal pain without radiation and no alleviating or exacerbating factors. She further denied any urinary complaints. She endorsed feeling feverish since last night though denied SOB, chest pain, headache, or dizziness. The patient underwent an extensive evaluation in the ED w/ CT abdomen/pelvis showing mild enteritis, potassium 5.6, BUN 31, and WBC count 9.6, and Troponin < 0.012. The patient is being admitted under observation status for dehydration secondary to enteritis. Review of Systems Pertinent positives and negatives as discussed in HPI, a complete review of systems was performed and all other systems are negative. Past Medical History Past Medical History: CVA/TIA, Dementia, Eye Disorder, Hypertension, Osteoarthritis (OA), Vascular Disorder Additional Past Medical History / Comment(s): pelvic fracture right side, arth ritis bilateral hands and feet, AAA-small, glaucoma R eye, TIA in 2009, diverticular dx/benign polyps History of Any Multi-Drug Resistant Organisms: None Reported Past Surgical History: Appendectomy, Cholecystectomy, Joint Replacement, Tonsillectomy Additional Past Surgical History / Comment(s): left total knee surgery, col onoscopy/polypectomy, bilateral cataract removal, surgery for glaucoma. Past Anesthesia/Blood Transfusion Reactions: No Reported Reaction, Motion Sickness Past Psychological History: Anxiety Additional Psychological History / Comment(s): Pt states she resides alone. She uses a cane and has a walker when needed to use. She drives minimally. She has very helpful adult children. She has no home care. Smoking Status: Never smoker Past Alcohol Use History: None Reported Past Drug Use History: None Reported - Past Family History Father Family Medical History: CVA/TIA Additional Family Medical History / Comment(s): Father of a CVA at the age of 65yrs. Mother Family Medical History: Dementia, Eye Disorder Additional Family Medical History / Comment(s): Mother at the age of 96yrs. She was healthy until age 90 when she went blind and had dementia. Medications and Allergies Home Medications Medication Instructions Recorded Confirmed Type Sertraline HCl [Zoloft] 12.5 mg PO DAILY 04/12/17 12/10/18 History ALPRAZolam [Xanax] 0.25 mg PO DAILY PRN 12/10/18 12/10/18 History Latanoprost [Xalatan 0.005%] 1 drop BOTH EYES HS 12/10/18 12/10/18 History Allergies Allergy/AdvReac Type Severity Reaction Status Date / Time coconut oil Allergy Unknown Verified 12/10/18 21:30 Physical Exam Vitals: Vital Signs Temp Pulse Pulse Resp BP BP Pulse Ox 01/29/19 05:07 99.7 F H 68 18 115/57 96 01/29/19 04:06 100.0 F H 106 H 16 162/86 97 01/29/19 01:29 100.3 F H 111 H 16 147/79 97 Intake and Output 01/28/19 01/29/19 01/29/19 22:59 06:59 14:59 Other: # Voids 1 Weight 72.575 kg General: non toxic, no distress, appears at stated age, normal weight Derm: no unusual rashes/lesions no unusual ecchymoses, warm, dry Head: atraumatic, normocephalic, symmetric Eyes: EOMI, no lid lag, anicteric sclera, pupils equal round reactive to light ENT: Nose and ears atraumatic, no thrush, no pharyngeal erythema Neck: No thyromegaly, no cervical lymphadenopathy, trachea midline, supple Mouth: no lip lesion, mucus membranes somewhat dry Cardiovascular: S1S2 reg, no murmur, positive posterior tibial pulse bilateral, no edema, capillary refill less than 2 seconds Lungs: CTA bilateral, no rhonchi, no rales , no accessory muscle use Abdominal: soft, mild generalized tenderness, no guarding, no appreciable organomegaly, normal bowel sounds Ext: no gross muscle atrophy, muscle strength 4 out of 5 in all 4 extremities grossly, no contractures, Neuro: CN II-XI grossly intact, light touch intact all 4 extremities, finger to nose within normal limits, Psych: Alert, oriented to person, place, and time, appropriate affect Results CBC & Chem 7: 01/29/19 01:43 01/29/19 01:43 Labs: Abnormal Lab Results - Last 24 Hours (Table) 01/29/19 01/29/19 Range/Units 01:43 03:11 Potassium 5.6 H (3.5-5.1) mmol/L BUN 31 H (7-17) mg/dL Glucose 114 H (74-99) mg/dL AST 44 H (14-36) U/L Urine Protein Trace H (Negative) Thrombosis Risk Factor Assmnt - Choose All That Apply Any of the Below Risk Factors Present?: Yes Each Factor Represents 1 point: Varicose veins Other Risk Factors: Yes Each Risk Factor Represents 3 Points: Age 75 years or older Other congenital or acquired thrombophilia - If yes, enter type in comment: No Thrombosis Risk Factor Assessment Total Risk Factor Score: 4 Thrombosis Risk Factor Assessment Level: Moderate Risk Assessment and Plan Plan: Sepsis secondary to enteritis -Will start patient on Flagyl -C/w NS 75 cc/hr -NPO for now -Monitor CBC JACQUE -C/w IVFs and monitor BMP Hyperkalemia -Ordered 15 g kayexelate, monitor BMP HTN -Hold antihypertensives in setting of sepsis DVT prophylaxis -Heparin The patient is admitted with an anticipated less than 2 midnight stay for evaluation of enteritis. CODE STATUS:Full Code Discussed with: Patient Anticipated discharge date: 01/30/[address]: Home A total of 35 minutes was spent on the care of this complex patient more than 50% of the time was spent in counseling and care coordination.
[2019-01-29] MEDS ORDERED: SODIUM POLYSTYRENE SULFONATE 15 GM/60 ML BOTTLE PO STA (07:46)
[2019-01-29] MEDS: HEPARIN SODIUM,PORCINE 5,000 UNIT/ML 1 ML VIAL SQ SCH ×2 (09:56→20:01)
[2019-01-29] MEDS: metroNIDAZOLE 500 MG TAB PO SCH ×2 (09:56→20:01)
--- NOTE | 2019-01-29 10:16 | P.PN ---
Progress Note - Text Progress Note Date: 01/29/19 Briefly this is a 88-year-old female patient that is admitted with sepsis secondary to acute gastroenteritis with dehydration and hypernatremia after presenting with intractable nausea and vomiting currently only complaining of nausea and extreme fatigue. CT showing mild enteritis, continue observation status with IV fluid rehydration, and empiric antibiotics with Flagyl and supportive therapy for her fevers with Tylenol and Zofran for nausea. We'll consult physical therapy
[2019-01-30] MEDS: SODIUM CHLORIDE 0.9% 1,000 ML IV SCH (04:39)
[2019-01-30 06:10] LABS: Basophils % (A) 0 %; Eosinophils # (A) 0.6 k/uL (0-0.7); Eosinophils % (A) 10 %; HCT 32.3 % (34.0-46.0); HGB 10.4 gm/dL (11.4-16.0); Hypochromasia Slight; Lymphocytes % (A) 18 %; MCH 29.2 pg (25.0-35.0); MCHC 32.2 g/dL (31.0-37.0); MCV 90.8 fL (80.0-100.0); Mean Platelet Volume 7.1; Monocytes # (A) 0.4 k/uL (0-1.0); Monocytes % (A) 7 %; Neutrophils # (A) 3.7 k/uL (1.3-7.7); Neutrophils % (A) 63 %; Platelet Count 224 k/uL (150-450); RBC 3.56 m/uL (3.80-5.40); RDW 13.9 % (11.5-15.5); WBC 5.8 k/uL (3.8-10.6)
[2019-01-30 06:23] LABS: Albumin 2.8 g/dL (3.5-5.0); Calcium 8.1 mg/dL (8.4-10.2); Potassium 3.4 mmol/L (3.5-5.1); Total Bilirubin 0.3 mg/dL (0.2-1.3)
[2019-01-30 08:14] VITALS: BP 142/74; PULSE 56; RESP 18; TEMP 98.9
[2019-01-30] MEDS: HEPARIN SODIUM,PORCINE 5,000 UNIT/ML 1 ML VIAL SQ SCH (08:22)
[2019-01-30] MEDS: metroNIDAZOLE 500 MG TAB PO SCH (08:23)
[2019-01-30] MEDS ORDERED: POTASSIUM CHLORIDE ER 20 MEQ TAB.ER PO STA (09:32)
--- NOTE | 2019-01-30 09:46 | P.DS ---
Providers Date of admission: 01/29/19 04:03 Expected date of discharge: 01/30/19 Attending physician: Daisy Cole MD Primary care physician: Stated None - Discharge Diagnosis(es) (1) Sepsis Current Visit: Yes Status: Acute (2) Hyperkalemia Current Visit: Yes Status: Acute (3) Gastroenteritis Current Visit: Yes Status: Acute (4) Dehydration Current Visit: Yes Status: Acute (5) Nausea & vomiting Current Visit: No Status: Acute Hospital Course: The patient is a 88-year-old female that presented here from assisted living at [facility] and was admitted for sepsis secondary to gastroenteritis after she presented with abdominal pain and intractable nausea and vomiting and was found to be febrile and dehydrated. The patient had no leukocytosis and was normotensive and otherwise hemodynamically stable, she was started on empiric IV antibiotics with Flagyl. Workup with CT abdomen and pelvis indicated mild wall thickening of the proximal small bowel and suggested nonspecific enteritis. CT of the head and neck was performed secondary to prior fall and showed no acute finding. The patient was initiated on IV fluids for her dehydration and was given Kayexalate for her hyperkalemia which resolved she also received potassium supplementation. Her diet was gradually advanced and she Was Tolerating a Full Diet at Time of Discharge. She was discharged home in stable condition, this discharge process took approximately 30 minutes. Focused exam Abdominal/GI: Soft nontender nondistended normal active bowel sounds in all 4 quadrants, nonacute abdomen Patient Condition at Discharge: Good Plan - Discharge Summary Discharge Rx Participant: Yes New Discharge Prescriptions: New metroNIDAZOLE [Flagyl] 500 mg PO BID #11 tab Continue Sertraline HCl [Zoloft] 25 mg PO DAILY Latanoprost [Xalatan 0.005%] 1 drop BOTH EYES HS ALPRAZolam [Xanax] 0.25 mg PO DAILY PRN PRN Reason: Anxiety Discharge Medication List Sertraline HCl [Zoloft] 25 mg PO DAILY 04/12/17 [History] ALPRAZolam [Xanax] 0.25 mg PO DAILY PRN 12/10/18 [History] Latanoprost [Xalatan 0.005%] 1 drop BOTH EYES HS 12/10/18 [History] metroNIDAZOLE [Flagyl] 500 mg PO BID #11 tab 01/30/19 [Rx] Follow up Appointment(s)/Referral(s): None,Stated [Primary Care Provider] - 1-2 days
== END 2019-01-30 11:50 | disposition home or self-care (01) ==
LOC: EC 01:17 → 1SOBS 04:03
PROVIDERS: ADMIT Internal Medicine; ATTEND Internal Medicine
DX: A41.9 Sepsis, unspecified organism (principal); N17.9 Acute kidney failure, unspecified; K52.9 Noninfective gastroenteritis and colitis, unspecified; E86.0 Dehydration; F03.90 Unspecified dementia, unspecified severity, without behavioral disturbance, psychotic disturbance, mood disturbance, and anxiety; I10 Essential (primary) hypertension; E87.5 Hyperkalemia; F41.9 Anxiety disorder, unspecified; M19.072 Primary osteoarthritis, left ankle and foot; M19.071 Primary osteoarthritis, right ankle and foot; M19.042 Primary osteoarthritis, left hand; M19.041 Primary osteoarthritis, right hand; I71.4 Abdominal aortic aneurysm, without rupture; Z98.42 Cataract extraction status, left eye; Z98.41 Cataract extraction status, right eye; Z86.73 Personal history of transient ischemic attack (TIA), and cerebral infarction without residual deficits; Z90.49 Acquired absence of other specified parts of digestive tract; Z96.652 Presence of left artificial knee joint; Z79.899 Other long term (current) drug therapy; Z82.3 Family history of stroke; Z81.8 Family history of other mental and behavioral disorders; Z91.048 Other nonmedicinal substance allergy status
CPT/HCPCS: 96372 ×2; 96374; 99285; 36415; 93005; 97162; 80053 ×2; 83605; 84132; 84484; 85025 ×2; 85610; 85730; 81003; 87086; 87045; 83630; 87046; 87502; 74177; G0378 ×2; J1644 ×2; J2405; Q9967

== ENCOUNTER 2019-12-18 10:17 | Inpatient (IN) | payer MEDICARE ==
--- NOTE | 2019-12-18 11:11 | ED ---
General Adult HPI <Kyle Cotter - Last Filed: 12/18/19 12:22> - General Source: patient, RN notes reviewed Mode of arrival: wheelchair Limitations: no limitations <Justyn Britton - Last Filed: 12/18/19 12:37> - General Chief complaint: Recheck/Abnormal Lab/Rx Stated complaint: SOB Time Seen by Provider: 12/18/19 10:36 - History of Present Illness Initial comments: This is an 89-year-old female presents emergency Department with chief complaint of abnormal labs. Patient lab work from by PCP yesterday was found to have a hemoglobin of 5.1. Patient was sent from it from for further evaluation. P atient denies any blood thinners. Patient denies any rectal bleeding, melena. Patient states that she does have some shortness breath though this is chronic in nature. Patient otherwise states she feels her normal usual self. Patient is here with family. (Justyn Britton) - Related Data Home Medications Medication Instructions Recorded Confirmed Sertraline HCl [Zoloft] 25 mg PO DAILY 04/12/17 01/29/19 ALPRAZolam [Xanax] 0.25 mg PO DAILY PRN 12/10/18 01/29/19 Latanoprost [Xalatan 0.005%] 1 drop BOTH EYES HS 12/10/18 01/29/19 Previous Rx's Medication Instructions Recorded metroNIDAZOLE [Flagyl] 500 mg PO BID #11 tab 01/30/19 Allergies Allergy/AdvReac Type Severity Reaction Status Date / Time coconut oil Allergy Unknown Verified 12/18/19 10:24 Review of Systems ROS Other: All systems not noted in ROS Statement are negative. <Kyle Cotter - Last Filed: 12/18/19 12:22> ROS Other: All systems not noted in ROS Statement are negative. <Justyn Britton - Last Filed: 12/18/19 12:37> ROS Statement: Those systems with pertinent positive or pertinent negative responses have been documented in the HPI. Past Medical History Past Medical History: CVA/TIA, Dementia, Eye Disorder, Hypertension, Osteoa rthritis (OA), Vascular Disorder Additional Past Medical History / Comment(s): pelvic fracture right side, arthritis bilateral hands and feet, AAA-small, glaucoma R eye, TIA in 2009, diverticular dx/benign polyps History of Any Multi-Drug Resistant Organisms: None Reported Past Surgical History: Appendectomy, Cholecystectomy, Joint Replacement, Tonsillectomy Additional Past Surgical History / Comment(s): left total knee surgery, colonoscopy/polypectomy, bilateral cataract removal, surgery for glaucoma. Past Anesthesia/Blood Transfusion Reactions: No Reported Reaction, Motion Sickness Past Psychological History: Anxiety Smoking Status: Never smoker Past Alcohol Use History: None Reported Past Drug Use History: None Reported - Past Family History Father Family Medical History: CVA/TIA Additional Family Medical History / Comment(s): Father of a CVA at the age of 65yrs. Mother Family Medical History: Dementia, Eye Disorder Additional Family Medical History / Comment(s): Mother at the age of 96yrs. She was healthy until age 90 when she went blind and had dementia. <Justyn Britton - Last Filed: 12/18/19 12:37> General Exam Limitations: no limitations General appearance: alert, in no apparent distress Head exam: Present: atraumatic, normocephalic, normal inspection Eye exam: Present: normal appearance, PERRL, EOMI. Absent: scleral icterus, conjunctival injection, periorbital swelling ENT exam: Present: normal exam, normal oropharynx, mucous membranes moist Neck exam: Present: normal inspection, full ROM. Absent: tenderness, meningismus, lymphadenopathy Respiratory exam: Present: normal lung sounds bilaterally. Absent: respiratory distress, wheezes, rales, rhonchi, stridor Cardiovascular Exam: Present: regular rate, normal rhythm, normal heart sounds. Absent: systolic murmur, diastolic murmur, rubs, gallop, clicks GI/Abdominal exam: Present: soft, normal bowel sounds. Absent: distended, tenderness, guarding, rebound, rigid Back exam: Absent: CVA tenderness (R), CVA tenderness (L) Neurological exam: Present: alert, oriented X3, CN II-XII intact Skin exam: Present: warm, dry, intact, normal color. Absent: rash <Justyn Britton - Last Filed: 12/18/19 12:37> Course <Kyle Cotter - Last Filed: 12/18/19 12:22> Vital Signs 12/18/19 12/18/19 12/18/19 10:22 10:50 12:31 Temperature 98.0 F Pulse Rate 83 79 Respiratory 16 22 18 Rate Blood Pressure 136/78 142/68 O2 Sat by Pulse 100 99 Oximetry - Reevaluation(s) Reevaluation #1: 12/18/19 12:22 PA supervision: I proceeded [id number] evaluation the patient did present with complaints of a hemoglobin of 5.1 and discussed the case with Dr. Wolfe earlier. Patient's initial rectal exam demonstrated no evidence of acute or gross bleeding. Patient will get 2 units of packed red blood cells GI will be consulted. I do agree with the assessment and plan. (Kyle Cotter) Medical Decision Making - Lab Data Result diagrams: 12/18/19 10:35 12/18/19 10:35 <Kyle Cotter - Last Filed: 12/18/19 12:22> - Lab Data Result diagrams: 12/18/19 10:35 12/18/19 10:35 <Justyn Britton - Last Filed: 12/18/19 12:37> - Medical Decision Making Patient will be admitted to Dr. Jessica for anemia with consult to GI. (Justyn Britton) - Lab Data Lab Results 12/18/19 12/18/19 12/18/19 Range/Units 10:35 10:35 10:35 WBC 5.5 (3.8-10.6) k/uL RBC 2.76 L (3.80-5.40) m/uL Hgb 5.1 L* (11.4-16.0) gm/dL Hct 18.7 L* (34.0-46.0) % MCV 67.5 L (80.0-100.0) fL MCH 18.6 L (25.0-35.0) pg MCHC 27.5 L (31.0-37.0) g/dL RDW 15.8 H (11.5-15.5) % Plt Count 366 (150-450) k/uL Neutrophils % 66 % Lymphocytes % 19 % Monocytes % 6 % Eosinophils % 5 % Basophils % 1 % Neutrophils # 3.6 (1.3-7.7) k/uL Lymphocytes # 1.0 (1.0-4.8) k/uL Monocytes # 0.3 (0-1.0) k/uL Eosinophils # 0.3 (0-0.7) k/uL Basophils # 0.0 (0-0.2) k/uL Polychromasia Present Hypochromasia Marked Poikilocytosis Slight Anisocytosis (manual) Present Microcytosis Marked Target Cells Present Fragmented RBCs Present PT 10.2 (9.0-12.0) sec INR 1.0 (<1.2) APTT 21.8 L (22.0-30.0) sec Sodium (137-145) mmol/L Potassium (3.5-5.1) mmol/L Chloride (98-107) mmol/L Carbon Dioxide (22-30) mmol/L Anion Gap mmol/L BUN (7-17) mg/dL Creatinine (0.52-1.04) mg/dL Est GFR (CKD-EPI)AfAm (>60 ml/min/1.73 sqM) Est GFR (CKD-EPI)NonAf (>60 ml/min/1.73 sqM) Glucose (74-99) mg/dL Calcium (8.4-10.2) mg/dL Magnesium (1.6-2.3) mg/dL Total Bilirubin (0.2-1.3) mg/dL AST (14-36) U/L ALT (4-34) U/L Alkaline Phosphatase (38-126) U/L Total Protein (6.3-8.2) g/dL Albumin (3.5-5.0) g/dL Stool Occult Blood (Negative) Blood Type O Positive Blood Type Recheck O Pos Bld Type Recheck Status No Antibody Screen NEGATIVE Spec Expiration Date 12/21/2019 - 233412/18/19 12/18/19 Range/Units 10:35 12:10 WBC (3.8-10.6) k/uL RBC (3.80-5.40) m/uL Hgb (11.4-16.0) gm/dL Hct (34.0-46.0) % MCV (80.0-100.0) fL MCH (25.0-35.0) pg MCHC (31.0-37.0) g/dL RDW (11.5-15.5) % Plt Count (150-450) k/uL Neutrophils % % Lymphocytes % % Monocytes % % Eosinophils % % Basophils % % Neutrophils # (1.3-7.7) k/uL Lymphocytes # (1.0-4.8) k/uL Monocytes # (0-1.0) k/uL Eosinophils # (0-0.7) k/uL Basophils # (0-0.2) k/uL Polychromasia Hypochromasia Poikilocytosis Anisocytosis (manual) Microcytosis Target Cells Fragmented RBCs PT (9.0-12.0) sec INR (<1.2) APTT (22.0-30.0) sec Sodium 138 (137-145) mmol/L Potassium 4.5 (3.5-5.1) mmol/L Chloride 106 (98-107) mmol/L Carbon Dioxide 22 (22-30) mmol/L Anion Gap 10 mmol/L BUN 25 H (7-17) mg/dL Creatinine 1.22 H (0.52-1.04) mg/dL Est GFR (CKD-EPI)AfAm 46 (>60 ml/min/1.73 sqM) Est GFR (CKD-EPI)NonAf 40 (>60 ml/min/1.73 sqM) Glucose 93 (74-99) mg/dL Calcium 8.9 (8.4-10.2) mg/dL Magnesium 2.4 H (1.6-2.3) mg/dL Total Bilirubin 0.2 (0.2-1.3) mg/dL AST 23 (14-36) U/L ALT 11 (4-34) U/L Alkaline Phosphatase 77 (38-126) U/L Total Protein 6.6 (6.3-8.2) g/dL Albumin 3.9 (3.5-5.0) g/dL Stool Occult Blood Negative (Negative) Blood Type Blood Type Recheck Bld Type Recheck Status Antibody Screen Spec Expiration Date Critical Care Time Critical Care Time: Yes Total Critical Care Time: 35 <Justyn Britton - Last Filed: 12/18/19 12:37> Critical Care Time: Total 35 minutes of critical care time were used initially evaluated review past medical history, ordering of lab and studies. Patient's found to have a hemoglobin of 5.1. 2 units of blood were ordered. Hemoccult was obtained, Protonix was given. Patient's case discussed with the admitting physician and will be admitted with consult to GI. (Justyn Britton) Disposition <Kyle Cotter - Last Filed: 12/18/19 12:22> <Justyn Britton M - Last Filed: 12/18/19 12:37> Clinical Impression: Anemia Disposition: ADMITTED IP TO THIS HOSP Condition: Fair Referrals: Jamel Wolfe MD [Primary Care Provider] - 1-2 days
[2019-12-18 11:23] LABS: Albumin 3.9 g/dL (3.5-5.0); Calcium 8.9 mg/dL (8.4-10.2); Magnesium 2.4 mg/dL (1.6-2.3); Potassium 4.5 mmol/L (3.5-5.1); Total Bilirubin 0.2 mg/dL (0.2-1.3); Total Protein 6.6 g/dL (6.3-8.2)
[2019-12-18 11:31] LABS: Prothrombin Time 10.2 sec (9.0-12.0)
[2019-12-18 11:40] LABS: Partial Thromboplastin Time 21.8 sec (22.0-30.0)
[2019-12-18 11:47] LABS: Basophils % (A) 1 %; Eosinophils # (A) 0.3 k/uL (0-0.7); Eosinophils % (A) 5 %; Hypochromasia Marked; Lymphocytes % (A) 19 %; MCH 18.6 pg (25.0-35.0); MCHC 27.5 g/dL (31.0-37.0); MCV 67.5 fL (80.0-100.0); Mean Platelet Volume 7.8; Microcytosis Marked; Monocytes # (A) 0.3 k/uL (0-1.0); Monocytes % (A) 6 %; Neutrophils # (A) 3.6 k/uL (1.3-7.7); Neutrophils % (A) 66 %; Platelet Count 366 k/uL (150-450); Poikilocytosis Slight; RBC 2.76 m/uL (3.80-5.40); RDW 15.8 % (11.5-15.5); WBC 5.5 k/uL (3.8-10.6)
[2019-12-18 11:49] LABS: HGB 5.1 gm/dL (11.4-16.0)
[2019-12-18 11:50] LABS: HCT 18.7 % (34.0-46.0)
[2019-12-18] MEDS ORDERED: PANTOPRAZOLE 40 MG/10 ML VIAL IVP STA (11:52)
[2019-12-18 12:15] LABS: Anisocytosis (M) Present; Polychromasia Present; RBC Fragments Present
[2019-12-18 12:16] LABS: Target Cells Present
[2019-12-18] MEDS ORDERED: NALOXONE 0.4 MG/ML 1 ML VIAL IV PRN (12:38)
[2019-12-18] MEDS ORDERED: ACETAMINOPHEN TAB 325 MG TAB PO PRN (12:38)
[2019-12-18] MEDS ORDERED: ONDANSETRON 4 MG/2 ML VIAL IVP PRN (12:38)
[2019-12-18] MEDS ORDERED: ALPRAZolam 0.25 MG TAB PO PRN (12:39)
[2019-12-18 18:29] LABS: Reticulocyte % 1.54 % (0.10-1.80)
[2019-12-18 18:46] LABS: Protein, Total 6.1 g/dL (6.2-8.2)
[2019-12-18 19:16] LABS: % Iron Saturation 1.52 (12.00-45.00); Ferritin 8.6 ng/mL (10.0-291.0); Folate, Serum 23.4 ng/mL
[2019-12-18 20:02] LABS: Anisocytosis Moderate; HCT 26.1 % (34.0-46.0); Hypochromasia Marked; MCH 22.5 pg (25.0-35.0); MCHC 29.6 g/dL (31.0-37.0); Mean Platelet Volume 7.5; Microcytosis Moderate; Platelet Count 342 k/uL (150-450); Poikilocytosis Marked; RBC 3.44 m/uL (3.80-5.40); RDW 20.3 % (11.5-15.5); WBC 7.7 k/uL (3.8-10.6)
[2019-12-18] MEDS: LATANOPROST 0.005% OPHTH DROPS 2.5 ML BTL BOTH EYES SCH (20:18)
[2019-12-18 20:57] LABS: HGB 7.7 gm/dL (11.4-16.0); MCV 75.9 fL (80.0-100.0)
[2019-12-19 03:24] LABS: Anisocytosis Moderate; HCT 23.1 % (34.0-46.0); Hypochromasia Marked; MCH 22.2 pg (25.0-35.0); MCHC 30.1 g/dL (31.0-37.0); MCV 73.7 fL (80.0-100.0); Mean Platelet Volume 7.5; Microcytosis Marked; Platelet Count 284 k/uL (150-450); Poikilocytosis Marked; RBC 3.14 m/uL (3.80-5.40); RDW 21.3 % (11.5-15.5); WBC 7.6 k/uL (3.8-10.6)
[2019-12-19 03:27] LABS: Calcium 8.5 mg/dL (8.4-10.2); Potassium 4.7 mmol/L (3.5-5.1)
--- NOTE | 2019-12-19 07:13 | P.CONS ---
History of Present Illness - Reason for Consult Consult date: 12/18/19 Anemia Requesting physician: Forest Jessica - Chief Complaint Abnormal lab draw - History of Present Illness 81-year-old female with medical history significant for osteoarthritis, hypertension, and dementia who presented to the hospital due to abnormal laboratory evaluation in the outpatient setting. The patient had labs drawn by her PCP and was found to have a hemoglobin of 5.1 instructed to present to the hospital for further evaluation. The patient reports shortness of breath which is chronic in nature. She denies any signs or symptoms of GI bleeding. No hematochezia, melena, hematemesis, coffee-ground emesis. She denies any excessive NSAID use. She denies any blood thinners. She does have a history of anemia dating back to 2017. In February 2019 hemoglobin was in the 10 range. No prior endoscopic evaluation. She did have stool testing on presentation which was negative for occult blood. Laboratory evaluation on presentation was significant for normal liver enzymes, WBC 5.5, hemoglobin 5.1, platelet count 366,000 with an MCV of 67.5 and MCHC of 18.6. Review of Systems REVIEW OF SYSTEMS: CONSTITUTIONAL: Denies any fevers, chills, weight change or fatigue. CARDIOVASCULAR: Denies any chest pain, palpitations high or low blood pressures RESPIRATORY: Denies any hemoptysis or cough but does report shortness of breath which is chronic in nature. GENITOURINARY: No dysuria or hematuria. MUSCULOSKELETAL: No weakness reported. SKIN: Denies any new rashes or lesions, jaundice or pallor. PSYCHIATRIC: Denies any current depression or anxiety, but does have a history of dementia. NEUROLOGY: Denies headache, denies any new focal deficits. EARS/NOSE/THROAT: No recent hearing change, congestion, nasal discharge or sore throat. EYES: No pain in eyes, discharge or change in vision. GASTROINTESTINAL: As per HPI. Past Medical History Past Medical History: CVA/TIA, Dementia, Eye Disorder, Hypertension, Osteoarthritis (OA), Vascular Disorder Additional Past Medical History / Comment(s): pelvic fracture right side, arth ritis bilateral hands and feet, AAA-small, glaucoma R eye, TIA in 2009, diverticular dx/benign polyps History of Any Multi-Drug Resistant Organisms: None Reported Past Surgical History: Appendectomy, Cholecystectomy, Joint Replacement, Tonsillectomy Additional Past Surgical History / Comment(s): left total knee surgery, col onoscopy/polypectomy, bilateral cataract removal, surgery for glaucoma. Past Anesthesia/Blood Transfusion Reactions: No Reported Reaction, Motion Sickness Past Psychological History: Anxiety Smoking Status: Never smoker Past Alcohol Use History: None Reported Past Drug Use History: None Reported - Past Family History Father Family Medical History: CVA/TIA Additional Family Medical History / Comment(s): Father of a CVA at the age of 65yrs. Mother Family Medical History: Dementia, Eye Disorder Additional Family Medical History / Comment(s): Mother at the age of 96yrs. She was healthy until age 90 when she went blind and had dementia. Medications and Allergies Home Medications Medication Instructions Recorded Confirmed Type Sertraline HCl [Zoloft] 25 mg PO DAILY 04/12/17 12/18/19 History Latanoprost [Xalatan 0.005%] 1 drop BOTH EYES HS 12/10/18 12/18/19 History Allergies Allergy/AdvReac Type Severity Reaction Status Date / Time coconut oil Allergy Unknown Verified 12/18/19 13:46 Physical Exam Vitals: Vital Signs Temp Pulse Pulse Resp BP BP Pulse Ox 12/18/19 13:45 98.1 F 86 20 173/77 98 12/18/19 13:19 97.8 F 89 16 151/76 100 12/18/19 13:09 98.2 F 81 16 146/78 100 12/18/19 12:31 79 18 142/68 99 12/18/19 10:50 22 12/18/19 10:22 98.0 F 83 16 136/78 100 Intake and Output 12/18/19 12/18/19 12/18/19 06:59 14:59 22:59 Intake Total 0 Balance 0 Intake: Blood Product 0 Rc Pheresis As3 Unit 0 [id number] Other: Weight 67.132 kg On physical examination, patient appears comfortable in no apparent distress. HEAD: Normocephalic, atraumatic. EYES: No scleral icterus. No conjunctival injection. MOUTH: No lesions, tongue midline. NECK: Trachea midline, no gross abnormalities. CHEST: Decreased air entry bilaterally. HEART: Regular rate and rhythm. ABDOMEN: Soft, thin and nontender. Bowel sounds are positive. No organomegaly. No guarding or rigidity. EXTREMITIES: No pedal edema. SKIN: No rashes, no jaundice. NEUROLOGIC: Alert and oriented x3. No focal deficits. Results CBC & Chem 7: 12/19/19 02:49 12/19/19 02:49 Labs: Abnormal Lab Results - Last 24 Hours (Table) 12/18/19 12/18/19 12/18/19 Range/Units 10:35 10:35 10:35 RBC 2.76 L (3.80-5.40) m/uL Hgb 5.1 L* (11.4-16.0) gm/dL Hct 18.7 L* (34.0-46.0) % MCV 67.5 L (80.0-100.0) fL MCH 18.6 L (25.0-35.0) pg MCHC 27.5 L (31.0-37.0) g/dL RDW 15.8 H (11.5-15.5) % APTT 21.8 L (22.0-30.0) sec BUN (7-17) mg/dL Creatinine (0.52-1.04) mg/dL Magnesium (1.6-2.3) mg/dL Crossmatch See Detail 12/18/19 Range/Units 10:35 RBC (3.80-5.40) m/uL Hgb (11.4-16.0) gm/dL Hct (34.0-46.0) % MCV (80.0-100.0) fL MCH (25.0-35.0) pg MCHC (31.0-37.0) g/dL RDW (11.5-15.5) % APTT (22.0-30.0) sec BUN 25 H (7-17) mg/dL Creatinine 1.22 H (0.52-1.04) mg/dL Magnesium 2.4 H (1.6-2.3) mg/dL Crossmatch Assessment and Plan (1) Microcytic hypochromic anemia Narrative/Plan: 81-year-old female with multiple medical comorbidities presenting due to anemia found on outpatient lab draw. Patient found to have a microcytic hypochromic anemia with negative stool testing for occult blood. No signs or symptoms of GI bleed. Patient has no prior endoscopic evaluation per her recollection. Unknown etiology may be secondary to nutritional deficiencies, GI blood loss, hematopoietic process or other etiology. Current Visit: Yes Status: Acute Code(s): D50.9 - IRON DEFICIENCY ANEMIA, UNSPECIFIED SNOMED Code(s): 08703761 Plan: Supportive care Okay for diet Laboratory evaluation of anemia ordered Continue to monitor stool output Continue current medical management Extensive discussion with the patient and her son about endoscopic evaluation at this time they would like conservative medical management and are not interested in endoscopic evaluation, the risks benefits and side effects of both proceeding with the procedure as well as proceeding with medical management have been discussed at length with all the questions answered to their satisfaction Thank you for allowing us to participate in the patient we will continue to follow
[2019-12-19] MEDS: SERTRALINE 25 MG TAB PO SCH (08:30)
[2019-12-19] MEDS ORDERED: PANTOPRAZOLE 40 MG/10 ML VIAL IV SCH (09:00)
--- NOTE | 2019-12-19 09:46 | P.HPIM ---
History of Present Illness H&P Date: 12/18/19 Chief Complaint: Severe anemia. This is an 89-year-old female one of Dr. Wolfe with a previous medical history significant for hypertension and hypertensive cardiovascular disease, hyperlipidemia, osteophyte arthritis, vascular dementia, history of TIA/CVA, patient presented to the emergency department on the request of her family physician due to low hemoglobin [facility] was found to have a hemoglobin of 5.1, patient never had any colonoscopy or upper endoscopy she did have a Corgard that was negative for occult blood at that time according to the son patient was admitted to the hospital for evaluation and possible GI consultation patient did receive 2 units of packed red blood cells. Review of Systems Constitutional: Reports fatigue, Reports malaise, Reports weakness, Denies anorexia, Denies chronic headaches, Denies chronic pain, Denies weight gain, Denies weight loss Eyes: denies blurred vision, denies bulging eye, denies decreased vision Ears: bilateral: decreased hearing Ears, nose, mouth and throat: Denies dysphagia, Denies neck lump, Denies sore throat Cardiovascular: Reports decreased exercise tolerance, Reports dyspnea on exertion, Reports shortness of breath, Denies chest pain, Denies lightheadedness, Denies palpitations, Denies rapid heart beat, Denies syncope Respiratory: Denies congestion, Denies cough with sputum, Denies hemoptysis, Denies home oxygen, Denies sleep apnea, Denies snoring, Denies wheezing Gastrointestinal: Reports loss of appetite, Denies abdominal pain, Denies bloating, Denies BRBPR, Denies change in bowel habits, Denies coffee ground emesis, Denies heartburn, Denies hematemesis, Denies hematochezia, Denies melena, Denies nausea, Denies vomiting Genitourinary: Denies dysuria, Denies hematuria Menstruation: Reports postmenopausal Musculoskeletal: Denies myalgias Musculoskeletal: absent: ankle pain, ankle stiffness, ankle swelling, elbow pain, elbow stiffness, elbow swelling, foot pain, foot stiffness, foot swelling, hand pain, hand stiffness, hand swelling, hip pain, hip stiffness, hip swelling, knee pain, knee stiffness, knee swelling, shoulder pain, shoulder stiffness, shoulder swelling, wrist pain, wrist stiffness, wrist swelling Integumentary: Denies pruritus, Denies rash Neurological: Denies numbness, Denies weakness Psychiatric: Reports memory loss Endocrine: Denies fatigue, Denies weight change Past Medical History Past Medical History: CVA/TIA, Dementia, Eye Disorder, Hypertension, Osteoarthritis (OA), Vascular Disorder Additional Past Medical History / Comment(s): pelvic fracture right side, arthritis bilateral hands and feet, AAA-small, glaucoma R eye, TIA in 2010, diverticular dx/benign polyps History of Any Multi-Drug Resistant Organisms: None Reported Past Surgical History: Appendectomy, Cholecystectomy, Joint Replacement, T onsillectomy Additional Past Surgical History / Comment(s): left total knee surgery, colonoscopy/polypectomy, bilateral cataract removal, surgery for glaucoma. Past Anesthesia/Blood Transfusion Reactions: No Reported Reaction, Motion Sickness Additional Past Anesthesia/Blood Transfusion Reaction / Comment(s): Pt has received blood in past post operatively without reaction. Past Psychological History: Anxiety Smoking Status: Never smoker Past Alcohol Use History: None Reported Past Drug Use History: None Reported - Past Family History Father Family Medical History: CVA/TIA (Father at age of the 60 from CVA and also had an aneurysm of the brain.) Additional Family Medical History / Comment(s): Father of a CVA at the age of 65yrs. Mother Family Medical History: Dementia (Mother at age of 101 from dementia and blindness.), Eye Disorder Additional Family Medical History / Comment(s): Mother at the age of 96yrs. She was healthy until age 90 when she went blind and had dementia. Brother(s) Family Medical History: Myocardial Infarction ([place]) (Patient had 3 brothers one of them from [place] .) Sister(s) Family Medical History: Dementia (Patient had 2 sisters one from dementia.) Son(s) Family Medical History: Hyperlipidemia (Patient has 3 sons one of them with hyperlipidemia) Daughter(s) Family Medical History: No Reported History (Patient has 2 daughters no major medical problems .) Medications and Allergies Home Medications Medication Instructions Recorded Confirmed Type Sertraline HCl [Zoloft] 25 mg PO DAILY 04/12/17 12/18/19 History Latanoprost [Xalatan 0.005%] 1 drop BOTH EYES HS 12/10/18 12/18/19 History Allergies Allergy/AdvReac Type Severity Reaction Status Date / Time coconut oil Allergy Unknown Verified 12/18/19 13:46 Physical Exam Vitals: Vital Signs Temp Pulse Pulse Resp BP BP Pulse Ox 12/19/19 08:05 98.5 F 86 17 138/73 97 12/19/19 06:00 97.9 F 87 16 152/71 96 12/18/19 23:43 97 16 128/60 97 12/18/19 20:11 98.8 F 83 16 158/74 97 12/18/19 18:29 98.2 F 88 16 138/76 12/18/19 15:51 98.1 F 84 14 139/63 100 12/18/19 15:50 98.3 F 84 14 148/72 12/18/19 15:40 98.1 F 87 14 139/63 12/18/19 15:29 98.2 F 87 14 139/63 100 12/18/19 13:45 98.1 F 86 20 173/77 98 12/18/19 13:19 97.8 F 89 16 151/76 100 12/18/19 13:09 98.2 F 81 16 146/78 100 12/18/19 12:31 79 18 142/68 99 12/18/19 10:50 22 12/18/19 10:22 98.0 F 83 16 136/78 100 Intake and Output 12/18/19 12/19/19 12/19/19 22:59 06:59 14:59 Intake Total 860 240 Output Total 150 Balance 860 90 Intake: Oral 240 240 Blood Product 620 Rc Pheresis As-3 Unit 310 [id number] Rc Pheresis As3 Unit 310 [id number] Output: Urine 150 Other: Voiding Method Bedside Commode # Voids 1 1 1 Weight 67.132 kg 72.8 kg HEENT: Head is atraumatic, normocephalic, pupils were equal round reactive to light and accommodation, extraocular muscle movement were intact, conjunctivae are pale mucous membranes of the mouth are supple dry. Neck: Supple, no JVP, decreased carotid upstroke bilaterally. Chest: Decreased breath sounds at the bases, few rhonchi, no expiratory wheezes, no chest wall tenderness, no intercostal retractions . Heart: First heart sound is depressed, second heart sound is normal, there is systolic ejection murmur 2/6 located at the left sternal border. Abdomen: Soft, mild tenderness to the right lower quadrant no rebound or guarding positive bowel sounds. Extremities: No edema, no calf tenderness, dorsalis pedis +1 bilaterally. Neurologic examination: Patient is awake alert and oriented 2, appears to have a baseline dementia, follows simple commands appropriate. Muscle power 3 out of 5 in bilateral upper and lower extremities. Results CBC & Chem 7: 12/19/19 02:49 12/19/19 02:49 Labs: Abnormal Lab Results - Last 24 Hours (Table) 12/18/19 12/18/19 12/18/19 Range/Units 10:35 10:35 10:35 RBC 2.76 L (3.80-5.40) m/uL Hgb 5.1 L* (11.4-16.0) gm/dL Hct 18.7 L* (34.0-46.0) % MCV 67.5 L (80.0-100.0) fL MCH 18.6 L (25.0-35.0) pg MCHC 27.5 L (31.0-37.0) g/dL RDW 15.8 H (11.5-15.5) % APTT 21.8 L (22.0-30.0) sec BUN (7-17) mg/dL Creatinine (0.52-1.04) mg/dL Magnesium (1.6-2.3) mg/dL Iron (50-170) ug/dL TIBC (228-460) ug/dL % Saturation (12.00-45.00) Ferritin (10.0-291.0) ng/mL Total Protein (PEP) (6.2-8.2) g/dL Crossmatch See Detail 12/18/19 12/18/19 12/18/19 Range/Units 10:35 10:35 10:35 RBC (3.80-5.40) m/uL Hgb (11.4-16.0) gm/dL Hct (34.0-46.0) % MCV (80.0-100.0) fL MCH (25.0-35.0) pg MCHC (31.0-37.0) g/dL RDW (11.5-15.5) % APTT (22.0-30.0) sec BUN 25 H (7-17) mg/dL Creatinine 1.22 H (0.52-1.04) mg/dL Magnesium 2.4 H (1.6-2.3) mg/dL Iron 7 L (50-170) ug/dL TIBC 461 H (228-460) ug/dL % Saturation 1.52 L (12.00-45.00) Ferritin 8.6 L (10.0-291.0) ng/mL Total Protein (PEP) 6.1 L (6.2-8.2) g/dL Crossmatch 12/18/19 12/19/19 12/19/19 Range/Units 19:13 02:49 02:49 RBC 3.44 L 3.14 L (3.80-5.40) m/uL Hgb 7.7 L D 7.0 L (11.4-16.0) gm/dL Hct 26.1 L 23.1 L (34.0-46.0) % MCV 75.9 L D 73.7 L (80.0-100.0) fL MCH 22.5 L 22.2 L (25.0-35.0) pg MCHC 29.6 L 30.1 L (31.0-37.0) g/dL RDW 20.3 H 21.3 H (11.5-15.5) % APTT (22.0-30.0) sec BUN 25 H (7-17) mg/dL Creatinine (0.52-1.04) mg/dL Magnesium (1.6-2.3) mg/dL Iron (50-170) ug/dL TIBC (228-460) ug/dL % Saturation (12.00-45.00) Ferritin (10.0-291.0) ng/mL Total Protein (PEP) (6.2-8.2) g/dL Crossmatch Thrombosis Risk Factor Assmnt - DVT/VTE Prophylaxis DVT/VTE Prophylaxis: Mechanical Prophylaxis ordered - Choose All That Apply Any of the Below Risk Factors Present?: Yes Each Factor Represents 1 point: Varicose veins Other Risk Factors: Yes Each Risk Factor Represents 3 Points: Age 75 years or older Other congenital or acquired thrombophilia - If yes, enter type in comment: No Thrombosis Risk Factor Assessment Total Risk Factor Score: 4 Thrombosis Risk Factor Assessment Level: Moderate Risk Assessment and Plan Assessment: Assessment and plan: 1. Acute symptomatic microcytic hypochromic anemia with a hemoglobin of 5.1. This is appears to be a chronic blood loss, versus nutritional deficiency or bone marrow issues, iron indices will be done, along with reticulocyte count and haptoglobin and LDH along with B12 and folic acid level, type and cross and transfuse 2 units of packed red blood cells, GI consultation case family is interested in EGD and colonoscopy. 2. Acute on chronic blood loss anemia. Type and cross and transfuse 2 units of packed red blood cells. 3. History of TIA/CVA. Currently not on any aspirin. 4. Hypertension and hypertensive cardio vascular disease. Currently not taking any medication. 5. Hyperlipidemia. Could not take any medication. 6. Vascular dementia. Not taking any medication. 7. Osteoarthritis. Tylenol as needed. Denies any history of NSAID use. 8. DVT prophylaxis. Bilateral knee-high ALVARADO hose. 9. GI prophylaxis. Protonix 40 mg IV push every 24 hours. 10. Anxiety/depressive disorder. Continue sertraline. 11. Admitted to inpatient. 12. Estimate a length of stay 2 midnights.
[2019-12-19] MEDS: IOPAMIDOL CONTRAST (ORAL USE) VIAL PO PRN ×2 (11:36→12:37)
[2019-12-19] MEDS: SODIUM FERRIC GLUCONAT-SUCROSE 125 MG in SODIUM CHLORIDE 0.9% 100 ML IVPB SCH (12:06)
--- NOTE | 2019-12-19 12:50 | P.PN ---
Subjective Progress Note Date: 12/19/19 This is an 89-year-old female one of Dr. Wolfe with a previous medical history significant for hypertension and hypertensive cardiovascular disease, hyperlipidemia, osteophyte arthritis, vascular dementia, history of TIA/CVA, patient presented to the emergency department on the request of her family physician due to low hemoglobin she was reevaluated in the ER at [facility] was found to have a hemoglobin of 5.1, patient never had any colonoscopy or upper endoscopy she did have a Corgard that was negative for occult blood at that time according to the son patient was admitted to the hospital for evaluation and possible GI consultation patient did receive 2 units of packed red blood cells. 12/18: Repeat hemoglobin today is at 7 after 2 units of packed RBCs. Patient has been seen by GI with recommendations for upper and lower endoscopy patient has refused. Stool for occult blood has been negative. Recheck count 1.54, iron 7, TIBC 461, saturation 1.52, ferritin 8.6, protein electrophoresis 6.1, vitamin B12 408, folate 23.4, LDH 479. Discuss Situation and Plan with the Patient Her 2 Sons at Bedside and Also with the Daughter on the Phone from [place]. Patient at This Time Does Not Want to Undergo Upper and Lower Endoscopy. She Is Willing to Undergo CAT Scan of the Abdomen. Ferrlecit Has Been Ordered by GI. PT and OT are in place. Patient's discharge plan is to return to [facility]. Objective - Vital Signs Vital signs: Vital Signs Temp 98.5 F 12/19/19 08:05 Pulse 86 12/19/19 08:05 Resp 17 12/19/19 08:05 BP 138/73 12/19/19 08:05 Pulse Ox 97 12/19/19 08:05 Intake & Output 12/18/19 12/19/19 12/19/19 18:59 06:59 18:59 Intake Total 860 240 Output Total 150 Balance 860 90 Weight 67.132 kg 72.8 kg Intake: Oral 240 240 Blood Product 620 Rc Pheresis As-3 Unit 310 [id number] Rc Pheresis As3 Unit 310 [id number] Output: Urine 150 Other: Voiding Method Bedside Commode # Voids 1 1 1 - Exam Review of Systems Constitutional: Reports fatigue, denies malaise, Reports weakness, Denies anorex ia, Denies chronic headaches, Denies chronic pain, Denies weight gain, Denies weight loss Eyes: denies blurred vision, denies bulging eye, denies decreased vision Ears: bilateral: decreased hearing Ears, nose, mouth and throat: Denies dysphagia, Denies neck lump, Denies sore throat Cardiovascular: Reports decreased exercise tolerance, Reports dyspnea on exertion, Reports shortness of breath, Denies chest pain, Denies lightheadedness, Denies palpitations, Denies rapid heart beat, Denies syncope Respiratory: Denies congestion, Denies cough with sputum, Denies hemoptysis, Denies home oxygen, Denies sleep apnea, Denies snoring, Denies wheezing Gastrointestinal: Reports loss of appetite, Denies abdominal pain, Denies bloating, Denies BRBPR, Denies change in bowel habits, Denies coffee ground emesis, Denies heartburn, Denies hematemesis, Denies hematochezia, Denies melena, Denies nausea, Denies vomiting Genitourinary: Denies dysuria, Denies hematuria Menstruation: Reports postmenopausal Musculoskeletal: Denies myalgias Musculoskeletal: absent: ankle pain, ankle stiffness, ankle swelling, elbow pain, elbow stiffness, elbow swelling, foot pain, foot stiffness, foot swelling, hand pain, hand stiffness, hand swelling, hip pain, hip stiffness, hip swelling, knee pain, knee stiffness, knee swelling, shoulder pain, shoulder stiffness, shoulder swelling, wrist pain, wrist stiffness, wrist swelling Integumentary: Denies pruritus, Denies rash Neurological: Denies numbness, Denies weakness Psychiatric: Reports memory loss Endocrine: Denies fatigue, Denies weight change Physical examination Gen.: This is an 89-year-old female. Patient is sitting up in bed and appears to be in no acute distress. Patient's sons are at bedside. HEENT: Head is atraumatic, normocephalic, pupils were equal round reactive to light and accommodation, extraocular muscle movement were intact, conjunctivae are pale mucous membranes of the mouth are supple dry. Neck: Supple, no JVP, decreased carotid upstroke bilaterally. Chest: Decreased breath sounds at the bases, few rhonchi, no expiratory wheezes, no chest wall tenderness, no intercostal retractions . Heart: First heart sound is depressed, second heart sound is normal, there is systolic ejection murmur 2/6 located at the left sternal border. Abdomen: Soft, mild tenderness to the right lower quadrant no rebound or guarding positive bowel sounds. Extremities: No edema, no calf tenderness, dorsalis pedis +1 bilaterally. Neurologic examination: Patient is awake alert and oriented 2, appears to have a baseline dementia, follows simple commands appropriate. Muscle power 3 out of 5 in bilateral upper and lower extremities. - Labs CBC & Chem 7: 12/19/19 02:49 12/19/19 02:49 Labs: Abnormal Lab Results - Last 24 Hours (Table) 12/18/19 12/18/19 12/18/19 Range/Units 10:35 10:35 10:35 RBC 2.76 L (3.80-5.40) m/uL Hgb 5.1 L* (11.4-16.0) gm/dL Hct 18.7 L* (34.0-46.0) % MCV 67.5 L (80.0-100.0) fL MCH 18.6 L (25.0-35.0) pg MCHC 27.5 L (31.0-37.0) g/dL RDW 15.8 H (11.5-15.5) % APTT 21.8 L (22.0-30.0) sec BUN (7-17) mg/dL Creatinine (0.52-1.04) mg/dL Magnesium (1.6-2.3) mg/dL Iron (50-170) ug/dL TIBC (228-460) ug/dL % Saturation (12.00-45.00) Ferritin (10.0-291.0) ng/mL Total Protein (PEP) (6.2-8.2) g/dL Crossmatch See Detail 12/18/19 12/18/19 12/18/19 Range/Units 10:35 10:35 10:35 RBC (3.80-5.40) m/uL Hgb (11.4-16.0) gm/dL Hct (34.0-46.0) % MCV (80.0-100.0) fL MCH (25.0-35.0) pg MCHC (31.0-37.0) g/dL RDW (11.5-15.5) % APTT (22.0-30.0) sec BUN 25 H (7-17) mg/dL Creatinine 1.22 H (0.52-1.04) mg/dL Magnesium 2.4 H (1.6-2.3) mg/dL Iron 7 L (50-170) ug/dL TIBC 461 H (228-460) ug/dL % Saturation 1.52 L (12.00-45.00) Ferritin 8.6 L (10.0-291.0) ng/mL Total Protein (PEP) 6.1 L (6.2-8.2) g/dL Crossmatch 12/18/19 12/19/19 12/19/19 Range/Units 19:13 02:49 02:49 RBC 3.44 L 3.14 L (3.80-5.40) m/uL Hgb 7.7 L D 7.0 L (11.4-16.0) gm/dL Hct 26.1 L 23.1 L (34.0-46.0) % MCV 75.9 L D 73.7 L (80.0-100.0) fL MCH 22.5 L 22.2 L (25.0-35.0) pg MCHC 29.6 L 30.1 L (31.0-37.0) g/dL RDW 20.3 H 21.3 H (11.5-15.5) % APTT (22.0-30.0) sec BUN 25 H (7-17) mg/dL Creatinine (0.52-1.04) mg/dL Magnesium (1.6-2.3) mg/dL Iron (50-170) ug/dL TIBC (228-460) ug/dL % Saturation (12.00-45.00) Ferritin (10.0-291.0) ng/mL Total Protein (PEP) (6.2-8.2) g/dL Crossmatch Assessment and Plan Plan: 1. Acute symptomatic microcytic hypochromic anemia with a hemoglobin of 5.1. This is appears to be a chronic blood loss, versus nutritional deficiency or bone marrow issues. GI consultation appreciated. CAT scan of the abdomen and pelvis with contrast ordered. Patient has refused EGD and colonoscopy. 2. Acute on chronic blood loss anemia. Status post transfusion of 2 units of packed RBCs. 3. History of TIA/CVA. Currently not on any aspirin. 4. Hypertension and hypertensive cardio vascular disease. Currently not taking any medication. 5. Hyperlipidemia. Could not take any medication. 6. Vascular dementia. Not taking any medication. 7. Osteoarthritis. Tylenol as needed. Denies any history of NSAID use. 8. DVT prophylaxis. Bilateral knee-high ALVARADO hose. 9. GI prophylaxis. Protonix 40 mg IV push every 24 hours. 10. Generalized anxiety disorder and recurrent depression. Continue sertraline. Discharge plan: return to [facility]. PT and OT evaluations Impression and plan of care have been directed as dictated by the signing physician. Marge Carlson nurse practitioner acting as scribe for signing phys mahesh.
[2019-12-19 13:10] LABS: Albumin 3.48 g/dL (3.80-4.90); Gamma Globulin 0.71 g/dL (0.70-1.50)
--- NOTE | 2019-12-19 14:30 | CT ---
EXAMINATION TYPE: CT abdomen pelvis w con DATE OF EXAM: 12/19/2019 COMPARISON: 01/29/2019 INDICATION: Anemia. DLP: 1013.2 mGycm, Automated exposure control for dose reduction was used. CONTRAST: 80 mL of Isovue 300. Study performed with Oral Contrast TECHNIQUE: Axial images were obtained from above the diaphragm to the pubic rami in the axial plane a t 5 mm thick sections. Reconstructed images are reviewed on the computer in the coronal plane. FINDINGS: Limited CT sections are obtained the lung bases. The lung bases are clear. CT ABDOMEN: Liver: Couple of small hypodensities are within the liver compatible with hepatic cysts. These were p resent previously. Spleen: Normal Pancreas: Normal Adrenal glands: The adrenal glands are normal. Gallbladder: Normal Kidneys: No masses are evident. No hydronephrosis is present. There is a 4.4 cm cyst at superior po le left kidney. There appears to be some moderate left hydronephrosis and hydroureter. The distal ure ter is not well visualized. Delayed images were obtained through the kidneys, which remain unremarka ble. Aorta: Vascular calcification is within the aorta. Greatest AP dimension is 4.4 cm. Tortuosity is pr esent. Distal common iliac artery is prominent of the right measuring 2.0 cm. Inferior vena cava: Normal. CT PELVIS: Loops of bowel within the abdomen and pelvis are normal. There are loops of bowel which are incom pletely distended or lack oral contrast limiting their evaluation. There is a small right inguinal hernia containing nondilated small bowel loops. Image [address] superior to this and anterior lateral herniation containing loops of bowel are present. Series 201 image 68 Appendix: Not identified. No suspicious dilated tubular structures or inflammatory changes are eviden t. Urinary bladder: Normal. Genitourinary structures: Uterus and ovaries are not identified. Osseous structures: No suspicious lytic or sclerotic lesions. IMPRESSIONS: 1. Infrarenal abdominal aortic aneurysm with the greatest AP diameter 4.4 cm. 2. Hepatic and renal cysts. 3. Moderate hydronephrosis and proximal prominence of the left ureter. 4. Right inguinal and right lateral anterior abdominal wall hernias discussed above
[2019-12-19 15:38] LABS: Anisocytosis Moderate; HCT 26.5 % (34.0-46.0); HGB 7.5 gm/dL (11.4-16.0); Hypochromasia Marked; MCH 21.5 pg (25.0-35.0); MCHC 28.2 g/dL (31.0-37.0); MCV 76.2 fL (80.0-100.0); Mean Platelet Volume 7.6; Microcytosis Moderate; Platelet Count 314 k/uL (150-450); Poikilocytosis Marked; RBC 3.48 m/uL (3.80-5.40); RDW 21.1 % (11.5-15.5); WBC 7.4 k/uL (3.8-10.6)
--- NOTE | 2019-12-19 17:20 | P.PN ---
Subjective Progress Note Date: 12/19/19 Principal diagnosis: Iron deficiency anemia Patient seen sitting bedside denying any abdominal pain. Tolerating diet. No signs or symptoms of GI bleeding. Objective - Vital Signs Vital signs: Vital Signs Temp 98.5 F 12/19/19 08:05 Pulse 74 12/19/19 12:05 Resp 17 12/19/19 12:05 BP 168/74 12/19/19 12:05 Pulse Ox 98 12/19/19 12:05 Intake & Output 12/18/19 12/19/19 12/19/19 18:59 06:59 18:59 Intake Total 860 340 Output Total 150 Balance 860 190 Weight 67.132 kg 72.8 kg Intake: Intake, IV Titration 100 Amount Sodium Ferric Gluconat- 100 Sucrose 125 mg In Sodium Chloride 0.9% 100 ml @ 100 mls/hr IVPB DAILY [facility] Rx#:[id number] Oral 240 240 Blood Product 620 Rc Pheresis As-3 Unit 310 [id number] Rc Pheresis As3 Unit 310 [id number] Output: Urine 150 Other: Voiding Method Bedside Commode # Voids 1 1 2 # Bowel Movements 1 - Exam On physical examination, patient appears comfortable in no apparent distress. HEAD: Normocephalic, atraumatic. EYES: No scleral icterus. No conjunctival injection. MOUTH: No lesions, tongue midline. NECK: Trachea midline, no gross abnormalities. ABDOMEN: Soft, nontender to palpation. Bowel sounds are positive. No organomegaly. No guarding or rigidity. EXTREMITIES: No pedal edema. SKIN: No rashes, no jaundice. NEUROLOGIC: Alert and oriented to person. - Labs CBC & Chem 7: 12/19/19 15:23 12/19/19 02:49 Labs: Abnormal Lab Results - Last 24 Hours (Table) 12/18/19 12/18/19 12/18/19 Range/Units 10:35 10:35 10:35 RBC (3.80-5.40) m/uL Hgb (11.4-16.0) gm/dL Hct (34.0-46.0) % MCV (80.0-100.0) fL MCH (25.0-35.0) pg MCHC (31.0-37.0) g/dL RDW (11.5-15.5) % BUN (7-17) mg/dL Iron 7 L (50-170) ug/dL TIBC 461 H (228-460) ug/dL % Saturation 1.52 L (12.00-45.00) Ferritin 8.6 L (10.0-291.0) ng/mL Total Protein (PEP) 6.1 L (6.2-8.2) g/dL Albumin (PEP) 3.48 L (3.80-4.90) g/dL [id number] 0.41 H (0.10-0.40) g/dL Crossmatch See Detail 12/18/19 12/19/19 12/19/19 Range/Units 19:13 02:49 02:49 RBC 3.44 L 3.14 L (3.80-5.40) m/uL Hgb 7.7 L D 7.0 L (11.4-16.0) gm/dL Hct 26.1 L 23.1 L (34.0-46.0) % MCV 75.9 L D 73.7 L (80.0-100.0) fL MCH 22.5 L 22.2 L (25.0-35.0) pg MCHC 29.6 L 30.1 L (31.0-37.0) g/dL RDW 20.3 H 21.3 H (11.5-15.5) % BUN 25 H (7-17) mg/dL Iron (50-170) ug/dL TIBC (228-460) ug/dL % Saturation (12.00-45.00) Ferritin (10.0-291.0) ng/mL Total Protein (PEP) (6.2-8.2) g/dL Albumin (PEP) (3.80-4.90) g/dL Ihuwu-5-Yjraamaee (0.10-0.40) g/dL Crossmatch 12/19/19 Range/Units 15:23 RBC 3.48 L (3.80-5.40) m/uL Hgb 7.5 L (11.4-16.0) gm/dL Hct 26.5 L (34.0-46.0) % MCV 76.2 L (80.0-100.0) fL MCH 21.5 L (25.0-35.0) pg MCHC 28.2 L (31.0-37.0) g/dL RDW 21.1 H (11.5-15.5) % BUN (7-17) mg/dL Iron (50-170) ug/dL TIBC (228-460) ug/dL % Saturation (12.00-45.00) Ferritin (10.0-291.0) ng/mL Total Protein (PEP) (6.2-8.2) g/dL Albumin (PEP) (3.80-4.90) g/dL Yxmqn-2-Plpsliblt (0.10-0.40) g/dL Crossmatch Assessment and Plan (1) Microcytic hypochromic anemia Narrative/Plan: 81-year-old female with multiple medical comorbidities presenting due to anemia found on outpatient lab draw. Patient found to have a microcytic hypochromic anemia with negative stool testing for occult blood. No signs or symptoms of GI bleed. Patient has no prior endoscopic evaluation per her recollection. Unknow n etiology may be secondary to nutritional deficiencies, GI blood loss, hematopoietic process or other etiology. Vitamin B-12 and folate normal. Lab studies were consistent with iron deficiency anemia. Current Visit: Yes Status: Acute Code(s): D50.9 - IRON DEFICIENCY ANEMIA, UNSPECIFIED SNOMED Code(s): 39440938 Plan: Supportive care Okay for diet Laboratory evaluation of anemia with normal vitamin B12 and folate and low iron IV iron ordered 3 doses Continue to monitor stool output Continue current medical management Extensive discussion with the patient and her son about endoscopic evaluation at this time they would like conservative medical management and are not interested in endoscopic evaluation, the risks benefits and side effects of both proceeding with the procedure as well as proceeding with medical management have been discussed at length with all the questions answered to their satisfaction Thank you for allowing us to participate in the patient
[2019-12-19 20:22] VITALS: RESP 16
[2019-12-19] MEDS: LATANOPROST 0.005% OPHTH DROPS 2.5 ML BTL BOTH EYES SCH (20:25)
[2019-12-20 06:20] LABS: Anisocytosis Moderate; HCT 24.2 % (34.0-46.0); HGB 7.2 gm/dL (11.4-16.0); Hypochromasia Marked; MCHC 29.6 g/dL (31.0-37.0); MCV 74.4 fL (80.0-100.0); Mean Platelet Volume 8.1; Microcytosis Moderate; Platelet Count 303 k/uL (150-450); Poikilocytosis Marked; RBC 3.25 m/uL (3.80-5.40); RDW 21.3 % (11.5-15.5); WBC 7.5 k/uL (3.8-10.6)
[2019-12-20] MEDS: SERTRALINE 25 MG TAB PO SCH (08:42)
[2019-12-20] MEDS ORDERED: PANTOPRAZOLE 40 MG TABLET PO SCH (09:00)
[2019-12-20] MEDS: SODIUM FERRIC GLUCONAT-SUCROSE 125 MG in SODIUM CHLORIDE 0.9% 100 ML IVPB SCH (11:00)
[2019-12-20 11:14] VITALS: BP 132/77; TEMP 98
[2019-12-20] MEDS ORDERED: ALPRAZolam 0.25 MG TAB PO SCH (12:00)
[2019-12-20 13:35] VITALS: PULSE 85
--- NOTE | 2019-12-20 15:26 | P.PN ---
Subjective Progress Note Date: 12/20/19 Principal diagnosis: Iron deficiency anemia Patient seen sitting in her room with her son today. Denies any signs or symptoms of GI bleeding. No abdominal pain. Objective - Vital Signs Vital signs: Vital Signs Temp 99.3 F 12/20/19 03:53 Pulse 79 12/20/19 03:53 Resp 16 12/20/19 03:53 BP 113/56 12/20/19 03:53 Pulse Ox 96 12/20/19 03:53 Intake & Output 12/19/19 12/20/19 12/20/19 18:59 06:59 18:59 Intake Total 840 250 240 Output Total 150 Balance 690 250 240 Weight 74.3 kg Intake: Intake, IV Titration 100 Amount Sodium Ferric Gluconat- 100 Sucrose 125 mg In Sodium Chloride 0.9% 100 ml @ 100 mls/hr IVPB DAILY [facility] Rx#:[id number] Oral 740 250 240 Output: Urine 150 Other: Voiding Method Bedside Commode # Voids 2 2 1 # Bowel Movements 1 2 - Exam On physical examination, patient appears comfortable in no apparent distress. HEAD: Normocephalic, atraumatic. EYES: No scleral icterus. No conjunctival injection. MOUTH: No lesions, tongue midline. NECK: Trachea midline, no gross abnormalities. ABDOMEN: Soft, nontender to palpation. Bowel sounds are positive. No organomegaly. No guarding or rigidity. EXTREMITIES: No pedal edema. SKIN: No rashes, no jaundice. NEUROLOGIC: Alert and oriented to person. - Labs CBC & Chem 7: 12/20/19 05:49 12/19/19 02:49 Labs: Abnormal Lab Results - Last 24 Hours (Table) 12/18/19 12/19/19 12/20/19 Range/Units 10:35 15:23 05:49 RBC 3.48 L 3.25 L (3.80-5.40) m/uL Hgb 7.5 L 7.2 L (11.4-16.0) gm/dL Hct 26.5 L 24.2 L (34.0-46.0) % MCV 76.2 L 74.4 L (80.0-100.0) fL MCH 21.5 L 22.0 L (25.0-35.0) pg MCHC 28.2 L 29.6 L (31.0-37.0) g/dL RDW 21.1 H 21.3 H (11.5-15.5) % Albumin (PEP) 3.48 L (3.80-4.90) g/dL Opncd-[id number] 0.41 H (0.10-0.40) g/dL Assessment and Plan (1) Microcytic hypochromic anemia Narrative/Plan: 81-year-old female with multiple medical comorbidities presenting due to anemia found on outpatient lab draw. Patient found to have a microcytic hypochromic anemia with negative stool testing for occult blood. No signs or symptoms of GI bleed. Patient has no prior endoscopic evaluation per her recollection. Unknown etiology may be secondary to nutritional deficiencies, GI blood loss, hematopoietic process or other etiology. Vitamin B-12 and folate normal. Lab studies were consistent with iron deficiency anemia. Status: Acute Code(s): D50.9 - IRON DEFICIENCY ANEMIA, UNSPECIFIED SNOMED Code(s): 99785040 Plan: Supportive care Okay for diet Laboratory evaluation of anemia with normal vitamin B12 and folate and low iron IV iron ordered 3 doses Continue to monitor stool output Continue current medical management Extensive discussion with the patient and her son about endoscopic evaluation at this time they would like conservative medical management and are not interested in endoscopic evaluation, the risks benefits and side effects of both proceeding with the procedure as well as proceeding with medical management have been discussed at length with all the questions answered to their satisfaction Thank you for allowing us to participate in the patient, the GI service will stand by, please call us back with any questions or concerns
[2019-12-21] MEDS ORDERED: ALPRAZolam 0.25 MG TAB PO SCH (09:00)
--- NOTE | 2019-12-21 13:51 | P.DS ---
Providers Date of admission: 12/18/19 12:22 Expected date of discharge: 12/20/19 Attending physician: Forest Jessica Consults: 12/18/19 12:39 Consult Physician Urgent Consulting Provider: Hebert Hobbs Consult Reason/Comments: Anemia Do you want consulting provider notified?: Yes Primary care physician: Jamel Wolfe [facility] Course: This is an 89-year-old female one of Dr. Wolfe with a previous medical history significant for hypertension and hypertensive cardiovascular disease, hyperlipidemia, osteophyte arthritis, vascular dementia, history of TIA/CVA, patient presented to the emergency department on the request of her family physician due to low hemoglobin [facility] to have a hemoglobin of 5.1, patient never had any colonoscopy or upper endoscopy she did have a Corgard that was negative for occult blood at that time according to the son patient was admitted to the hospital for evaluation and possible GI consultation patient did receive 2 units of packed red blood cells. 12/18: Repeat hemoglobin today is at 7 after 2 units of packed RBCs. Patient has been seen by GI with recommendations for upper and lower endoscopy patient has refused. Stool for occult blood has been negative. Recheck count 1.54, iron 7, TIBC 461, saturation 1.52, ferritin 8.6, protein electrophoresis 6.1, vitamin B12 408, folate 23.4, LDH 479. Discuss Situation and Plan with the Patient Her 2 Sons at Bedside and Also with the Daughter on the Phone from [place]. Patient at This Time Does Not Want to Undergo Upper and Lower Endoscopy. She Is Willing to Undergo CAT Scan of the Abdomen. Ferrlecit Has Been Ordered by GI. PT and OT are in place. Patient's discharge plan is to return to [facility]. 12/19: CAT scan of the abdomen and pelvis revealed infrarenal abdominal aortic aneurysm with the greatest AP diameter 4.4 cm. Hepatic and renal cysts. Moderate hydronephrosis and proximal prominence of the left ureter. Right inguinal and right lateral anterior abdominal wall hernias. Patient denies any abdominal pain. No signs of bleeding rectally. The patient has been followed by GI but no plan for endoscopy as patient is refusing. She is receiving IV Ferrlecit, second dose today. Patient will be started on oral ferrous sulfate for home. Repeat hemoglobin 7.2. Patient will be discharged home today in stable condition. Discharge diagnoses: 1. Acute symptomatic microcytic hypochromic anemia with a hemoglobin of 5.1 of unclear etiology possible acute blood loss, possibly related to bone marrow suppression. 2. Acute on chronic blood loss anemia. 3. History of TIACVA. 4. Hypertension and hypertensive cardio vascular disease. 5. Hyperlipidemia. 6. Vascular dementia. 7. Osteoarthritis, generalized. 8. Generalized anxiety disorder and recurrent depression. Discharge plan: return to [facility]. PT and OT evaluations Impression and plan of care have been directed as dictated by the signing physician. Marge Carlson nurse practitioner acting as scribe for signing physician. Patient Condition at Discharge: Good Plan - Discharge Summary New Discharge Prescriptions: Juan Pantoprazole [Protonix] 40 mg PO DAILY #30 tablet. Ferrous Sulfate [Feosol] 325 mg PO DAILY #30 tab Continue Sertraline HCl [Zoloft] 25 mg PO DAILY Latanoprost [Xalatan 0.005%] 1 drop BOTH EYES HS Discharge Medication List Sertraline HCl [Zoloft] 25 mg PO DAILY 04/12/17 [History] Latanoprost [Xalatan 0.005%] 1 drop BOTH EYES HS 12/10/18 [History] Ferrous Sulfate [Feosol] 325 mg PO DAILY #30 tab 12/20/19 [Rx] Pantoprazole [Protonix] 40 mg PO DAILY #30 tablet. 12/20/19 [Rx] Follow up Appointment(s)/Referral(s): Sai Mcbride MD [STAFF PHYSICIAN] - 2 Weeks Jamel Wolfe MD [Primary Care Provider] - 1 Week Hebert Hobbs MD [STAFF PHYSICIAN] - 2 Weeks Ambulatory/Diagnostic Orders: Complete Blood Count w/diff [LAB.AMB] Location: None Selected Comprehensive Metabolic Panel [LAB.AMB] Location: None Selected Patient Instructions/Handouts: Iron Rich Diet (DC), Anemia (DC) Activity/Diet/Wound Care/Special Instructions: GI BLEED 1. Take all new medication as directed. 2. Avoid foods that can be irritating to your intestines (See dietary teaching). 3. Avoid motrin (ibuprofen) and aleve (naproxen). These medications can increase your risk of internal bleeding. Tylenol (acetaminophen) is safe to take as long as you do not have any liver disease. 4. Avoid drinking alcohol and smoking, these can also irritate your intestines and increase risk of internal bleeding. 5. Increase activity gradually, do not overexert yourself. Your blood count is lower and your body will need time to recover. Discharge Disposition: HOME SELF-CARE
== END 2019-12-20 13:35 | disposition home or self-care (01) | DRG 812 ==
LOC: EC 10:17 → 3SCARD 12:22
PROVIDERS: ADMIT Internal Medicine; ATTEND Internal Medicine
PROC: 30233N1 Transfusion of Nonautologous Red Blood Cells into Peripheral Vein, Percutaneous Approach (ICD-10-PCS; principal; 2019-12-18)
DX: D62 Acute posthemorrhagic anemia (principal); F33.9 Major depressive disorder, recurrent, unspecified; N13.30 Unspecified hydronephrosis; I11.9 Hypertensive heart disease without heart failure; F01.50 Vascular dementia, unspecified severity, without behavioral disturbance, psychotic disturbance, mood disturbance, and anxiety; D50.8 Other iron deficiency anemias; K76.89 Other specified diseases of liver; F41.1 Generalized anxiety disorder; E78.5 Hyperlipidemia, unspecified; I71.4 Abdominal aortic aneurysm, without rupture; N28.1 Cyst of kidney, acquired; M19.041 Primary osteoarthritis, right hand; M19.042 Primary osteoarthritis, left hand; M19.072 Primary osteoarthritis, left ankle and foot; M19.071 Primary osteoarthritis, right ankle and foot; K43.9 Ventral hernia without obstruction or gangrene; K40.90 Unilateral inguinal hernia, without obstruction or gangrene, not specified as recurrent; H40.9 Unspecified glaucoma; Z79.899 Other long term (current) drug therapy; Z90.49 Acquired absence of other specified parts of digestive tract; Z96.652 Presence of left artificial knee joint; Z86.73 Personal history of transient ischemic attack (TIA), and cerebral infarction without residual deficits; Z87.81 Personal history of (healed) traumatic fracture; Z98.42 Cataract extraction status, left eye; Z98.41 Cataract extraction status, right eye; Z86.010 Personal history of colon polyps; Z98.890 Other specified postprocedural states; Z91.018 Allergy to other foods; Z82.3 Family history of stroke; Z81.8 Family history of other mental and behavioral disorders; Z83.511 Family history of glaucoma; Z82.1 Family history of blindness and visual loss; Z82.49 Family history of ischemic heart disease and other diseases of the circulatory system; Z83.49 Family history of other endocrine, nutritional and metabolic diseases
CPT/HCPCS: 36415; 36430; 74177; 80048; 80053; 82272; 82607; 82728; 82746; 83010; 83540; 83550; 83615; 83735; 84165; 85025; 85027; 85045; 85610; 85730; 86850; 86900; 86901; 86920; 96374; 99291